=== PATIENT | male | born 1960 | race Caucasian/White ===

== ENCOUNTER 2018-05-18 08:43 | Emergency (ER) | payer BC ==
[2018-05-18] MEDS ORDERED: SODIUM CHLORIDE 0.9% 1,000 ML IV STA (09:08)
--- NOTE | 2018-05-18 09:25 | ED ---
Abdominal Pain HPI - General Chief Complaint: Abdominal Pain Stated Complaint: poss kidney stones Time Seen by Provider: 05/18/18 08:58 Source: patient, RN notes reviewed Mode of arrival: ambulatory Limitations: no limitations - History of Present Illness Initial Comments: 58-year-old male presents emergency Department chief complaint of lower abdominal pain. Patient states this has progressed to the last couple months. Patient states he seen his primary care physician and urologist. Patient states it initially started with with left groin pain which proceeded to translate to testicular pain radiating into his abdomen. Patient has an ultrasound with urology with no acute findings. Patient had cystoscopy yesterday in the office and they stated there is no acute findings. Patient was given a prescription for CT of his abdomen and pelvis with and without contrast. Patient states that he did have extreme discomfort with urination after the procedure this is improving. Patient states he also saw some dark maroon to reddish small clots o r stones he believes. Patient denies any fever, chills, flank pain. Patient offers no complaints of current nausea, vomiting, diarrhea constipation. - Related Data Home Medications Medication Instructions Recorded Confirmed Atorvastatin Calcium [Lipitor] 20 mg PO HS 05/18/18 05/18/18 Cephalexin [Keflex] 500 mg PO TID 05/18/18 05/18/18 Escitalopram [Lexapro] 30 mg PO DAILY 05/18/18 05/18/18 Losartan Potassium 100 mg PO DAILY 05/18/18 05/18/18 Montelukast Sodium [Singulair] 10 mg PO HS 05/18/18 05/18/18 Multivit-Min/FA/Lycopen/Lutein 1 tab PO DAILY 05/18/18 05/18/18 [Centrum Silver Men Tablet] Primidone [Mysoline] 50 mg PO DIRECTED 05/18/18 05/18/18 Tamsulosin [Flomax] 0.4 mg PO DAILY 05/18/18 05/18/18 buPROPion XL [Wellbutrin Xl] 300 mg PO DAILY 05/18/18 05/18/18 Allergies Allergy/AdvReac Type Severity Reaction Status Date / Time aspirin Allergy Anaphylaxis Verified 05/18/18 09:48 ibuprofen [From Motrin] Allergy Anaphylaxis Verified 05/18/18 09:48 codeine AdvReac "dries Verified 05/18/18 09:48 system out" Review of Systems ROS Statement: Those systems with pertinent positive or pertinent negative responses have been documented in the HPI. ROS Other: All systems not noted in ROS Statement are negative. Past Medical History Past Medical History: Asthma, Hyperlipidemia, Hypertension History of Any Multi-Drug Resistant Organisms: None Reported Past Surgical History: No Surgical Hx Reported Past Psychological History: Anxiety, Depression Smoking Status: Never smoker Past Alcohol Use History: Rare Past Drug Use History: None Reported General Exam Limitations: no limitations General appearance: alert, in no apparent distress Head exam: Present: atraumatic, normocephalic, normal inspection Neck exam: Present: normal inspection. Absent: tenderness, meningismus, lymphadenopathy Respiratory exam: Present: normal lung sounds bilaterally. Absent: respiratory distress, wheezes, rales, rhonchi, stridor Cardiovascular Exam: Present: regular rate, normal rhythm, normal heart sounds. Absent: systolic murmur, diastolic murmur, rubs, gallop, clicks GI/Abdominal exam: Present: soft, tenderness (Mild suprapubic), normal bowel sounds. Absent: distended, guarding, rebound, rigid Back exam: Absent: CVA tenderness (R), CVA tenderness (L) Neurological exam: Present: alert, oriented X3, CN II-XII intact Skin exam: Present: warm, dry, intact, normal color. Absent: rash Course Vital Signs 05/18/18 08:45 Temperature 98.2 F Pulse Rate 69 Respiratory 16 Rate Blood Pressure 133/74 O2 Sat by Pulse 98 Oximetry Medical Decision Making - Medical Decision Making 58-year-old male presented for abdominal pain. Patient had recent evaluation by urology with no acute findings recommended CT of abdomen and pelvis which was ordered emergency department. Patient did have lab work. There is some mild thickening of the bladder wall on CT along with fullness of the left renal pelvis. Otherwise no acute findings. Lab work is unremarkable. Patient will be referred back to urology and PCP at this time. - Lab Data Result diagrams: 05/18/18 09:06 05/18/18 09:06 Lab Results 05/18/18 05/18/18 05/18/18 Range/Units 09:06 09:06 09:06 WBC 6.4 (3.8-10.6) k/uL RBC 5.04 (4.30-5.90) m/uL Hgb 14.9 (13.0-17.5) gm/dL Hct 44.9 (39.0-53.0) % MCV 89.2 (80.0-100.0) fL MCH 29.5 (25.0-35.0) pg MCHC 33.1 (31.0-37.0) g/dL RDW 13.4 (11.5-15.5) % Plt Count 215 (150-450) k/uL Neutrophils % 61 % Lymphocytes % 21 % Monocytes % 12 % Eosinophils % 3 % Basophils % 1 % Neutrophils # 3.9 (1.3-7.7) k/uL Lymphocytes # 1.4 (1.0-4.8) k/uL Monocytes # 0.8 (0-1.0) k/uL Eosinophils # 0.2 (0-0.7) k/uL Basophils # 0.0 (0-0.2) k/uL PT 9.9 (9.0-12.0) sec INR 0.9 (<1.2) APTT 25.0 (22.0-30.0) sec Sodium 139 (137-145) mmol/L Potassium 4.2 (3.5-5.1) mmol/L Chloride 106 (98-107) mmol/L Carbon Dioxide 23 (22-30) mmol/L Anion Gap 10 mmol/L BUN 26 H (9-20) mg/dL Creatinine 1.30 H (0.66-1.25) mg/dL Est GFR (CKD-EPI)AfAm 69 (>60 ml/min/1.73 sqM) Est GFR (CKD-EPI)NonAf 60 (>60 ml/min/1.73 sqM) Glucose 104 H (74-99) mg/dL Calcium 8.8 (8.4-10.2) mg/dL Total Bilirubin 0.9 (0.2-1.3) mg/dL AST 35 (17-59) U/L ALT 46 (21-72) U/L Alkaline Phosphatase 69 (38-126) U/L Total Protein 7.0 (6.3-8.2) g/dL Albumin 4.1 (3.5-5.0) g/dL Amylase 80 (30-110) U/L Lipase 86 (23-300) U/L Urine Color Urine Appearance (Clear) Urine pH (5.0-8.0) Ur Specific [place] (1.001-1.035) Urine Protein (Negative) Urine Glucose (UA) (Negative) Urine Ketones (Negative) Urine Blood (Negative) Urine Nitrite (Negative) Urine Bilirubin (Negative) Urine Urobilinogen (<2.0) mg/dL Ur Leukocyte Esterase (Negative) Urine RBC (0-5) /hpf Urine WBC (0-5) /hpf Urine Mucus (None) /hpf 05/18/18 Range/Units 09:06 WBC (3.8-10.6) k/uL RBC (4.30-5.90) m/uL Hgb (13.0-17.5) gm/dL Hct (39.0-53.0) % MCV (80.0-100.0) fL MCH (25.0-35.0) pg MCHC (31.0-37.0) g/dL RDW (11.5-15.5) % Plt Count (150-450) k/uL Neutrophils % % Lymphocytes % % Monocytes % % Eosinophils % % Basophils % % Neutrophils # (1.3-7.7) k/uL Lymphocytes # (1.0-4.8) k/uL Monocytes # (0-1.0) k/uL Eosinophils # (0-0.7) k/uL Basophils # (0-0.2) k/uL PT (9.0-12.0) sec INR (<1.2) APTT (22.0-30.0) sec Sodium (137-145) mmol/L Potassium (3.5-5.1) mmol/L Chloride (98-107) mmol/L Carbon Dioxide (22-30) mmol/L Anion Gap mmol/L BUN (9-20) mg/dL Creatinine (0.66-1.25) mg/dL Est GFR (CKD-EPI)AfAm (>60 ml/min/1.73 sqM) Est GFR (CKD-EPI)NonAf (>60 ml/min/1.73 sqM) Glucose (74-99) mg/dL Calcium (8.4-10.2) mg/dL Total Bilirubin (0.2-1.3) mg/dL AST (17-59) U/L ALT (21-72) U/L Alkaline Phosphatase (38-126) U/L Total Protein (6.3-8.2) g/dL Albumin (3.5-5.0) g/dL Amylase (30-110) U/L Lipase (23-300) U/L Urine Color Yellow Urine Appearance Clear (Clear) Urine pH 5.0 (5.0-8.0) Ur Specific [place] 1.024 (1.001-1.035) Urine Protein Trace H (Negative) Urine Glucose (UA) Negative (Negative) Urine Ketones Negative (Negative) Urine Blood Moderate H (Negative) Urine Nitrite Negative (Negative) Urine Bilirubin Negative (Negative) Urine Urobilinogen <2.0 (<2.0) mg/dL Ur Leukocyte Esterase Negative (Negative) Urine RBC 32 H (0-5) /hpf Urine WBC 1 (0-5) /hpf Urine Mucus Rare H (None) /hpf Disposition Clinical Impression: Abdominal pain Disposition: HOME SELF-CARE Condition: Stable Instructions (If sedation given, give patient instructions): Abdominal Pain (ED) Additional Instructions: Please return to the Emergency Department if symptoms worsen or any other concerns. Is patient prescribed a controlled substance at d/c from ED?: No Referrals: Keyana Bishop DO [Primary Care Provider] - 1-2 days Time of Disposition: 11:14
[2018-05-18 10:16] LABS: Basophils % (A) 1 %; Eosinophils # (A) 0.2 k/uL (0-0.7); Eosinophils % (A) 3 %; HCT 44.9 % (39.0-53.0); HGB 14.9 gm/dL (13.0-17.5); Lymphocytes # (A) 1.4 k/uL (1.0-4.8); Lymphocytes % (A) 21 %; MCH 29.5 pg (25.0-35.0); MCHC 33.1 g/dL (31.0-37.0); MCV 89.2 fL (80.0-100.0); Mean Platelet Volume 7.5; Monocytes # (A) 0.8 k/uL (0-1.0); Monocytes % (A) 12 %; Neutrophils # (A) 3.9 k/uL (1.3-7.7); Neutrophils % (A) 61 %; Platelet Count 215 k/uL (150-450); RBC 5.04 m/uL (4.30-5.90); RDW 13.4 % (11.5-15.5); WBC 6.4 k/uL (3.8-10.6)
--- NOTE | 2018-05-18 10:20 | CT ---
EXAMINATION TYPE: CT abdomen pelvis wo/w con DATE OF EXAM: 05/18/2018 COMPARISON: None HISTORY: testicular pain since scope yesterday CT DLP: 3067.7 mGycm Automated exposure control for dose reduction was used. TECHNIQUE: Helical acquisition of images was performed from the lung bases through the pelvis. CONTRAST: Performed without Oral Contrast and without and with IV Contrast, patient injected with 100 mL of [place]so [place] 300. FINDINGS: LUNG BASES: Subcentimeter benign granulomas is noted in the right middle lobe. Subpleural fat disposi tion is present. LIVER/GB: No cholelithiasis. Unenhanced morphology of the liver is unremarkable. After contrast no ab normal enhancement is seen. PANCREAS: Slight haziness of the pancreatic parenchyma is noted that may relate to patient motion. No ductal dilatation. SPLEEN: No significant abnormality is seen. ADRENALS: No significant abnormality is seen. KIDNEYS: No hydronephrosis. There is mild left-sided pelvic fullness without mp hydronephrosis or obstructing ureteral calculus. Urinary bladder is decompressed. FREE AIR: No free air is visualized. ADENOPATHY: No greater than 1 cm short axis lymph nodes are noted within the abdomen or pelvis. REPRODUCTIVE ORGANS: Prostate gland is heterogenous containing central zone calcifications. URINARY BLADDER: No significant abnormality is seen. OSSEOUS STRUCTURES: No significant abnormality is seen. BOWEL: Few scattered colonic diverticula are seen without pericolonic fat stranding. IMPRESSION: MINIMAL FULLNESS OF THE LEFT RENAL PELVIS LIKELY RELATES TO PHASE OF EXCRETION IS NO MP HYDRONEPHR OSIS IS SEEN. INCOMPLETE DISTENTION OF THE URINARY BLADDER IS NOTED WITH CIRCUMFERENTIAL URINARY BLAD DAVID WALL THICKENING. CORRELATE WITH URINALYSIS.
[2018-05-18 10:24] LABS: INR 0.9 (<1.2); Prothrombin Time 9.9 sec (9.0-12.0)
[2018-05-18 10:36] LABS: Albumin 4.1 g/dL (3.5-5.0); Calcium 8.8 mg/dL (8.4-10.2); Potassium 4.2 mmol/L (3.5-5.1); Total Bilirubin 0.9 mg/dL (0.2-1.3)
[2018-05-18 10:38] LABS: Appearance,Urine Clear (Clear); Bilirubin,Urine Negative (Negative); Blood,Urine Moderate (Negative); Color,Urine Yellow; Glucose,Urine (UA) Negative (Negative); Ketones,Urine Negative (Negative); Leukocyte Esterase,Urine Negative (Negative); Mucus,Urine Rare /hpf; Nitrite,Urine Negative (Negative); Protein,Urine Trace (Negative); RBC,Urine 32 /hpf (0-5); Specific Gravity,Urine 1.024 (1.001-1.035); Urobilinogen,Urine <2.0 mg/dL (<2.0); WBC,Urine 1 /hpf (0-5)
[2018-05-18 11:39] VITALS: BP 144/83; PULSE 83; RESP 18; TEMP 98
== END 2018-05-18 11:30 | disposition home or self-care (01) ==
LOC: EC 08:43
DX: R10.32 Left lower quadrant pain (principal); N32.89 Other specified disorders of bladder; I10 Essential (primary) hypertension; E78.5 Hyperlipidemia, unspecified; F41.9 Anxiety disorder, unspecified; F32.9 Major depressive disorder, single episode, unspecified; Z79.899 Other long term (current) drug therapy; Z88.5 Allergy status to narcotic agent; Z88.6 Allergy status to analgesic agent
CPT/HCPCS: 36415; 80053; 82150; 83690; 85025; 85610; 85730; 81001; 87086; 74178; 99284; 96360; Q9967

== ENCOUNTER 2020-01-03 12:06 | Inpatient (IN) | payer BC ==
[2020-01-03] MEDS ORDERED: diphenhydrAMINE 50 MG/ML 1 ML VIAL IVP STA (13:13)
[2020-01-03] MEDS ORDERED: METOCLOPRAMIDE 5 MG/ML 2 ML VIAL IVP STA (13:13)
[2020-01-03] MEDS ORDERED: MAGNESIUM SULFATE-D5W PMX 1 GM in DEXTROSE/WATER 1 100ML.BAG IVPB ONE (13:14)
--- NOTE | 2020-01-03 13:34 | ED ---
Fever HPI - General Chief Complaint: Fever Stated Complaint: Fever/SOB/Headache Time Seen by Provider: 01/03/20 12:10 Source: patient Mode of arrival: ambulatory Limitations: no limitations - History of Present Illness Initial Comments: 59-year-old male who presents to the emergency department with reported fever, shortness of breath and chest tightness. Patient reports that symptoms started on Monday. His is diagnosed with Covid. He states that he has had a rapid swab performed which were negative however his symptoms persist. He admits to a history of asthma. Denies previous hospitalizations for asthma. Does have rescue inhalers at home. Does admit to nausea with a poor appetite. No vomiting. No abdominal pain. No changes in his bladder habits. Does admit to some diarrhea. Does admit to headache and fever. Took some Tylenol without improvement in his symptoms. No vision changes. No neck stiffness. No head trauma. No other alleviating or modifying factors - Related Data Home Medications Medication Instructions Recorded Confirmed Atorvastatin Calcium [Lipitor] 20 mg PO HS 05/18/18 01/03/20 Escitalopram [Lexapro] 30 mg PO DAILY 05/18/18 01/03/20 Losartan Potassium 100 mg PO DAILY 05/18/18 01/03/20 Montelukast Sodium [Singulair] 10 mg PO HS 05/18/18 01/03/20 Multivit-Min/FA/Lycopen/Lutein 1 tab PO DAILY 05/18/18 01/03/20 [Centrum Silver Men Tablet] buPROPion XL [Wellbutrin XL] 300 mg PO DAILY 05/18/18 01/03/20 Gabapentin [Neurontin] 300 mg PO TID 01/03/20 01/03/20 Oxybutynin Chloride [Ditropan XL] 10 mg PO DAILY 01/03/20 01/03/20 buPROPion XL [Wellbutrin XL] 150 mg PO DAILY 01/03/20 01/03/20 Previous Rx's Medication Instructions Recorded Albuterol Inhaler [Ventolin Hfa 2 puff INHALATION RT-TID #1 inh 01/10/20 Inhaler] Ascorbic Acid [Vitamin C] 500 mg PO DAILY #21 tab 01/10/20 Cefuroxime Axetil [Ceftin] 500 mg PO BID 5 Days #10 tab 01/10/20 Cholecalciferol [Vitamin D3 (25 1,000 unit PO DAILY #30 tab 01/10/20 Mcg = 1000 Iu)] Famotidine [Pepcid] 20 mg PO DAILY #30 tab 01/10/20 Zinc Sulfate [Orazinc] 220 mg PO DAILY #30 cap 01/10/20 dexAMETHasone [Hexadrol] 6 mg PO DAILY 4 Days #6 tab 01/10/20 Allergies Allergy/AdvReac Type Severity Reaction Status Date / Time aspirin Allergy Anaphylaxis Verified 01/03/20 13:02 ibuprofen [From Motrin] Allergy Anaphylaxis Verified 01/03/20 13:02 codeine AdvReac "dries Verified 01/03/20 13:02 system out" Review of Systems ROS Statement: Those systems with pertinent positive or pertinent negative responses have been documented in the HPI. ROS Other: All systems not noted in ROS Statement are negative. Past Medical History Past Medical History: Asthma, Hyperlipidemia, Hypertension History of Any Multi-Drug Resistant Organisms: None Reported Past Surgical History: No Surgical Hx Reported Past Psychological History: Anxiety, Depression Smoking Status: Never smoker Past Alcohol Use History: Rare Past Drug Use History: None Reported General Exam Limitations: no limitations General appearance: alert, in no apparent distress Head exam: Present: atraumatic, normocephalic, normal inspection Eye exam: Present: normal appearance, PERRL, EOMI. Absent: scleral icterus, conjunctival injection, periorbital swelling ENT exam: Present: normal exam, mucous membranes moist Neck exam: Present: normal inspection. Absent: tenderness, meningismus, lymphadenopathy Respiratory exam: Present: decreased breath sounds, other (tachypnia). Absent: respiratory distress, wheezes, rales, rhonchi, stridor Cardiovascular Exam: Present: regular rate, normal rhythm, normal heart sounds. Absent: systolic murmur, diastolic murmur, rubs, gallop, clicks GI/Abdominal exam: Present: soft, normal bowel sounds. Absent: distended, tenderness, guarding, rebound, rigid Extremities exam: Present: normal inspection, full ROM, normal capillary refill. Absent: tenderness, pedal edema, joint swelling, calf tenderness Back exam: Present: normal inspection Neurological exam: Present: alert, oriented X3, CN II-XII intact Psychiatric exam: Present: normal affect, normal mood Skin exam: Present: warm, dry, intact, normal color, diaphoretic. Absent: rash Course Vital Signs 01/03/20 01/03/20 01/03/20 12:08 12:39 14:13 Temperature 100.7 F H Pulse Rate 78 65 Respiratory 28 H 16 18 Rate Blood Pressure 135/75 138/83 O2 Sat by Pulse 98 95 Oximetry 01/03/20 01/03/20 01/03/20 15:19 16:00 16:30 Temperature Pulse Rate 65 67 71 Respiratory 18 18 18 Rate Blood Pressure 146/87 132/82 146/83 O2 Sat by Pulse 95 93 L 94 L Oximetry Medical Decision Making - Medical Decision Making Upon arrival the patient was placed into room 2. A thorough history and physical exam was performed. Peripheral IV is established. The patient is given 10 mg of Reglan and 25 mg of Benadryl. 1 g of magnesium was administered. Laboratories results were conducted and a chest x-ray was performed. Laboratory studies demonstrate a creatinine of 1.6 which is around the patient's baseline. C-reactive protein of 65. Influenza A and B are negative. Chest x- ray does demonstrate bilateral pneumonia. Patient is swabbed again for appropriate. Patient is reevaluated and continues to have pain. Because of this I did recommend CT. CT of the patient's brain demonstrates no acute intracranial abnormality. Patient was given 1 g of Tylenol for his fever. Vital signs are obtained and patient now has saturations are 94%. Due to the patient's persistent symptoms I did recommend hospital admission for which the patient did agree to. I discussed the case with Dr. Dodd who accepted admission for the patient. Patient is currently awaiting a bed on the floor - Lab Data Result diagrams: 01/06/20 05:49 01/06/20 05:49 Lab Results 01/03/20 01/03/20 01/03/20 Range/Units 13:29 13:29 13:29 WBC 9.2 (3.8-10.6) k/uL RBC 5.45 (4.30-5.90) m/uL Hgb 15.6 (13.0-17.5) gm/dL Hct 49.8 (39.0-53.0) % MCV 91.3 (80.0-100.0) fL MCH 28.7 (25.0-35.0) pg MCHC 31.4 (31.0-37.0) g/dL RDW 13.3 (11.5-15.5) % Plt Count 208 (150-450) k/uL Neutrophils % 80 % Lymphocytes % 6 % Monocytes % 12 % Eosinophils % 0 % Basophils % 1 % Neutrophils # 7.4 (1.3-7.7) k/uL Lymphocytes # 0.6 L (1.0-4.8) k/uL Monocytes # 1.1 H (0-1.0) k/uL Eosinophils # 0.0 (0-0.7) k/uL Basophils # 0.1 (0-0.2) k/uL ESR (0-15) mm/hr PT 9.6 (9.0-12.0) sec INR 0.9 (<1.2) APTT 25.8 (22.0-30.0) sec D-Dimer 0.29 (<0.60) mg/L FEU Sodium 133 L (137-145) mmol/L Potassium 4.7 (3.5-5.1) mmol/L Chloride 100 (98-107) mmol/L Carbon Dioxide 24 (22-30) mmol/L Anion Gap 9 mmol/L BUN 25 H (9-20) mg/dL Creatinine 1.61 H (0.66-1.25) mg/dL Est GFR (CKD-EPI)AfAm 53 (>60 ml/min/1.73 sqM) Est GFR (CKD-EPI)NonAf 46 (>60 ml/min/1.73 sqM) BUN/Creatinine Ratio (12.00-20.00) Ratio Glucose 111 H (74-99) mg/dL Plasma Lactic Acid Abhilash (0.7-2.0) mmol/L Calcium 8.4 (8.4-10.2) mg/dL Magnesium 1.8 (1.6-2.3) mg/dL Ferritin 290.4 (22.0-322.0) ng/mL Total Bilirubin 0.9 (0.2-1.3) mg/dL AST 30 (17-59) U/L ALT 27 (4-49) U/L Alkaline Phosphatase 58 (38-126) U/L Lactate Dehydrogenase 612 (313-618) U/L C-Reactive Protein 65.0 H (<10.0) mg/L Total Protein 6.4 (6.3-8.2) g/dL Albumin 3.8 (3.5-5.0) g/dL Procalcitonin (0.02-0.09) ng/mL Urine Color Urine Appearance (Clear) Urine pH (5.0-8.0) Ur Specific [place] (1.001-1.035) Urine Protein (Negative) Urine Glucose (UA) (Negative) Urine Ketones (Negative) Urine Blood (Negative) Urine Nitrite (Negative) Urine Bilirubin (Negative) Urine Urobilinogen (<2.0) mg/dL Ur Leukocyte Esterase (Negative) Urine RBC (0-5) /hpf Urine WBC (0-5) /hpf Ur Squamous Epith Cells (0-4) /hpf Granular Casts (0) /lpf Urine Mucus (None) /hpf Coronavirus (PCR) (Not Detected) Influenza Type A RNA (Not Detectd) Influenza Type B (PCR) (Not Detectd) 01/03/20 01/03/20 01/03/20 Range/Units 13:29 13:29 13:29 WBC (3.8-10.6) k/uL RBC (4.30-5.90) m/uL Hgb (13.0-17.5) gm/dL Hct (39.0-53.0) % MCV (80.0-100.0) fL MCH (25.0-35.0) pg MCHC (31.0-37.0) g/dL RDW (11.5-15.5) % Plt Count (150-450) k/uL Neutrophils % % Lymphocytes % % Monocytes % % Eosinophils % % Basophils % % Neutrophils # (1.3-7.7) k/uL Lymphocytes # (1.0-4.8) k/uL Monocytes # (0-1.0) k/uL Eosinophils # (0-0.7) k/uL Basophils # (0-0.2) k/uL ESR 12 (0-15) mm/hr PT (9.0-12.0) sec INR (<1.2) APTT (22.0-30.0) sec D-Dimer (<0.60) mg/L FEU Sodium (137-145) mmol/L Potassium (3.5-5.1) mmol/L Chloride (98-107) mmol/L Carbon Dioxide (22-30) mmol/L Anion Gap mmol/L BUN (9-20) mg/dL Creatinine (0.66-1.25) mg/dL Est GFR (CKD-EPI)AfAm (>60 ml/min/1.73 sqM) Est GFR (CKD-EPI)NonAf (>60 ml/min/1.73 sqM) BUN/Creatinine Ratio (12.00-20.00) Ratio Glucose (74-99) mg/dL Plasma Lactic Acid Abhilash 1.0 (0.7-2.0) mmol/L Calcium (8.4-10.2) mg/dL Magnesium (1.6-2.3) mg/dL Ferritin (22.0-322.0) ng/mL Total Bilirubin (0.2-1.3) mg/dL AST (17-59) U/L ALT (4-49) U/L Alkaline Phosphatase (38-126) U/L Lactate Dehydrogenase (313-618) U/L C-Reactive Protein (<10.0) mg/L Total Protein (6.3-8.2) g/dL Albumin (3.5-5.0) g/dL Procalcitonin 0.16 H (0.02-0.09) ng/mL Urine Color Urine Appearance (Clear) Urine pH (5.0-8.0) Ur Specific [place] (1.001-1.035) Urine Protein (Negative) Urine Glucose (UA) (Negative) Urine Ketones (Negative) Urine Blood (Negative) Urine Nitrite (Negative) Urine Bilirubin (Negative) Urine Urobilinogen (<2.0) mg/dL Ur Leukocyte Esterase (Negative) Urine RBC (0-5) /hpf Urine WBC (0-5) /hpf Ur Squamous Epith Cells (0-4) /hpf Granular Casts (0) /lpf Urine Mucus (None) /hpf Coronavirus (PCR) (Not Detected) Influenza Type A RNA (Not Detectd) Influenza Type B (PCR) (Not Detectd) 01/03/20 01/03/20 01/04/20 Range/Units 14:25 14:25 06:10 WBC (3.8-10.6) k/uL RBC (4.30-5.90) m/uL Hgb (13.0-17.5) gm/dL Hct (39.0-53.0) % MCV (80.0-100.0) fL MCH (25.0-35.0) pg MCHC (31.0-37.0) g/dL RDW (11.5-15.5) % Plt Count (150-450) k/uL Neutrophils % % Lymphocytes % % Monocytes % % Eosinophils % % Basophils % % Neutrophils # (1.3-7.7) k/uL Lymphocytes # (1.0-4.8) k/uL Monocytes # (0-1.0) k/uL Eosinophils # (0-0.7) k/uL Basophils # (0-0.2) k/uL ESR (0-15) mm/hr PT (9.0-12.0) sec INR (<1.2) APTT (22.0-30.0) sec D-Dimer (<0.60) mg/L FEU Sodium (137-145) mmol/L Potassium (3.5-5.1) mmol/L Chloride (98-107) mmol/L Carbon Dioxide (22-30) mmol/L Anion Gap mmol/L BUN (9-20) mg/dL Creatinine (0.66-1.25) mg/dL Est GFR (CKD-EPI)AfAm (>60 ml/min/1.73 sqM) Est GFR (CKD-EPI)NonAf (>60 ml/min/1.73 sqM) BUN/Creatinine Ratio (12.00-20.00) Ratio Glucose (74-99) mg/dL Plasma Lactic Acid Abhilash (0.7-2.0) mmol/L Calcium (8.4-10.2) mg/dL Magnesium (1.6-2.3) mg/dL Ferritin (22.0-322.0) ng/mL Total Bilirubin (0.2-1.3) mg/dL AST (17-59) U/L ALT (4-49) U/L Alkaline Phosphatase (38-126) U/L Lactate Dehydrogenase (313-618) U/L C-Reactive Protein (<10.0) mg/L Total Protein (6.3-8.2) g/dL Albumin (3.5-5.0) g/dL Procalcitonin (0.02-0.09) ng/mL Urine Color Yellow Urine Appearance Clear (Clear) Urine pH 5.0 (5.0-8.0) Ur Specific [place] 1.023 (1.001-1.035) Urine Protein 1+ H (Negative) Urine Glucose (UA) Negative (Negative) Urine Ketones Negative (Negative) Urine Blood Negative (Negative) Urine Nitrite Negative (Negative) Urine Bilirubin Negative (Negative) Urine Urobilinogen <2.0 (<2.0) mg/dL Ur Leukocyte Esterase Negative (Negative) Urine RBC 1 (0-5) /hpf Urine WBC 1 (0-5) /hpf Ur Squamous Epith Cells <1 (0-4) /hpf Granular Casts 1 (0) /lpf Urine Mucus Occasional H (None) /hpf Coronavirus (PCR) Detected H (Not Detected) Influenza Type A RNA Not Detected (Not Detectd) Influenza Type B (PCR) Not Detected (Not Detectd) 01/04/20 01/04/20 Range/Units 06:28 06:28 WBC 5.5 (3.8-10.6) k/uL RBC 5.14 (4.30-5.90) m/uL Hgb 14.8 (13.0-17.5) gm/dL Hct 47.5 (39.0-53.0) % MCV 92.5 (80.0-100.0) fL MCH 28.9 (25.0-35.0) pg MCHC 31.2 (31.0-37.0) g/dL RDW 13.3 (11.5-15.5) % Plt Count 170 (150-450) k/uL Neutrophils % 84 % Lymphocytes % 7 % Monocytes % 8 % Eosinophils % 0 % Basophils % 0 % Neutrophils # 4.6 (1.3-7.7) k/uL Lymphocytes # 0.4 L (1.0-4.8) k/uL Monocytes # 0.4 (0-1.0) k/uL Eosinophils # 0.0 (0-0.7) k/uL Basophils # 0.0 (0-0.2) k/uL ESR (0-15) mm/hr PT (9.0-12.0) sec INR (<1.2) APTT (22.0-30.0) sec D-Dimer (<0.60) mg/L FEU Sodium 135 (137-145) mmol/L Potassium 5.1 (3.5-5.1) mmol/L Chloride 100 (98-107) mmol/L Carbon Dioxide 27.7 (22-30) mmol/L Anion Gap 7.30 mmol/L BUN 22.0 (9-20) mg/dL Creatinine 1.4 (0.66-1.25) mg/dL Est GFR (CKD-EPI)AfAm 62.8 (>60 ml/min/1.73 sqM) Est GFR (CKD-EPI)NonAf 54.2 L (>60 ml/min/1.73 sqM) BUN/Creatinine Ratio 15.71 (12.00-20.00) Ratio Glucose 133 H (74-99) mg/dL Plasma Lactic Acid Abhilash (0.7-2.0) mmol/L Calcium 8.0 L (8.4-10.2) mg/dL Magnesium (1.6-2.3) mg/dL Ferritin (22.0-322.0) ng/mL Total Bilirubin (0.2-1.3) mg/dL AST (17-59) U/L ALT (4-49) U/L Alkaline Phosphatase (38-126) U/L Lactate Dehydrogenase (313-618) U/L C-Reactive Protein (<10.0) mg/L Total Protein (6.3-8.2) g/dL Albumin (3.5-5.0) g/dL Procalcitonin (0.02-0.09) ng/mL Urine Color Urine Appearance (Clear) Urine pH (5.0-8.0) Ur Specific [place] (1.001-1.035) Urine Protein (Negative) Urine Glucose (UA) (Negative) Urine Ketones (Negative) Urine Blood (Negative) Urine Nitrite (Negative) Urine Bilirubin (Negative) Urine Urobilinogen (<2.0) mg/dL Ur Leukocyte Esterase (Negative) Urine RBC (0-5) /hpf Urine WBC (0-5) /hpf Ur Squamous Epith Cells (0-4) /hpf Granular Casts (0) /lpf Urine Mucus (None) /hpf Coronavirus (PCR) (Not Detected) Influenza Type A RNA (Not Detectd) Influenza Type B (PCR) (Not Detectd) - EKG Data EKG Comments: EKG demonstrates a normal sinus rhythm with a ventricular rate of 68. TN interval 142. QRS 80. QTC 408. No acute ST segment elevations or depressions concerning for ischemic changes Disposition Clinical Impression: Cephalgia, Pneumonia, Suspected COVID-19 virus infection, Fever Disposition: ADMITTED IP TO THIS HOSP Condition: Stable Is patient prescribed a controlled substance at d/c from ED?: No Decision to Admit Reason: Admit from EC Decision Date: 01/03/20 Decision Time: 16:31
[2020-01-03 13:56] LABS: Basophils # (A) 0.1 k/uL (0-0.2); Basophils % (A) 1 %; Eosinophils % (A) 0 %; HCT 49.8 % (39.0-53.0); HGB 15.6 gm/dL (13.0-17.5); Lymphocytes # (A) 0.6 k/uL (1.0-4.8); Lymphocytes % (A) 6 %; MCH 28.7 pg (25.0-35.0); MCHC 31.4 g/dL (31.0-37.0); MCV 91.3 fL (80.0-100.0); Monocytes # (A) 1.1 k/uL (0-1.0); Monocytes % (A) 12 %; Neutrophils # (A) 7.4 k/uL (1.3-7.7); Neutrophils % (A) 80 %; Platelet Count 208 k/uL (150-450); RBC 5.45 m/uL (4.30-5.90); RDW 13.3 % (11.5-15.5); WBC 9.2 k/uL (3.8-10.6)
[2020-01-03 14:00] LABS: Albumin 3.8 g/dL (3.5-5.0); Calcium 8.4 mg/dL (8.4-10.2); Magnesium 1.8 mg/dL (1.6-2.3); Potassium 4.7 mmol/L (3.5-5.1); Total Bilirubin 0.9 mg/dL (0.2-1.3); Total Protein 6.4 g/dL (6.3-8.2)
--- NOTE | 2020-01-03 14:08 | XR ---
EXAMINATION TYPE: XR chest 1V portable DATE OF EXAM: 01/03/2020 COMPARISON: NONE HISTORY: Cough, congestion and headache, suspected Covid pneumonia TECHNIQUE: Single frontal view of the chest is obtained. FINDINGS: Technique is somewhat apical lordotic. There is no focal air space opacity, pleural effusio n, or pneumothorax seen. The cardiac silhouette size is enlarged. Interstitium is mildly increased. Technique somewhat limited by patient body habitus. Some patchy peripheral densities are suspected. The osseous structures are intact. IMPRESSION: Correlate for possible underlying pneumonia. Heart is likely.
[2020-01-03 14:10] LABS: D-Dimer 0.29 mg/L FEU (<0.60); INR 0.9 (<1.2); Partial Thromboplastin Time 25.8 sec (22.0-30.0); Prothrombin Time 9.6 sec (9.0-12.0)
[2020-01-03] MEDS ORDERED: cefTRIAXone IN SWFI 1,000 MG/10 ML SYRINGE IVP STA (15:26)
[2020-01-03] MEDS ORDERED: AZITHROMYCIN 500 MG in SODIUM CHLORIDE 0.9% 250 ML IVPB STA (15:26)
[2020-01-03] MEDS ORDERED: ACETAMINOPHEN TAB 500 MG TAB PO STA (15:40)
--- NOTE | 2020-01-03 15:53 | CT ---
EXAMINATION TYPE: CT brain wo con DATE OF EXAM: 01/03/2020 COMPARISON: None HISTORY: 59-year-old male headache TECHNIQUE: Examination was done in axial plane without intravenous contrast. Coronal and sagittal r econstructions performed. CT DLP: 1058.4 mGycm Automated exposure control for dose reduction was used. FINDINGS: There is no evidence of acute intracranial hemorrhage, acute ischemic changes, mass, mass-effect, or extra-axial fluid collection. There is no effacement of cerebral sulci or basal subarachnoid cister ns. There is no hydrocephalus. There is no midline shift. Hale-white matter distinction is preserv ed. Trace mucosal thickening ethmoid air cells. Mastoid air cells well pneumatized. Orbits and globes fani ear intact. IMPRESSION: No acute intracranial abnormality seen.
[2020-01-03] MEDS ORDERED: NALOXONE 0.4 MG/ML 1 ML VIAL IV PRN (16:31)
[2020-01-03] MEDS ORDERED: MORPHINE SULFATE 4 MG/ML SYRINGE IVP STA (17:25)
[2020-01-03] MEDS: SODIUM CHLORIDE 0.9% 1,000 ML IV SCH (17:54)
--- NOTE | 2020-01-03 18:42 | CT ---
EXAMINATION TYPE: CT chest wo con DATE OF EXAM: 01/03/2020 COMPARISON: 70 radiographic. HISTORY: Shortness of breath CT DLP: 597.3 mGycm. Automated Exposure Control for Dose Reduction was Utilized. TECHNIQUE: CT scan of the thorax is performed without IV contrast. FINDINGS: LUNGS: There is bilateral moderately diffuse patchy groundglass opacities. No significant pleural eff usion or pneumothorax. MEDIASTINUM: Lack of IV contrast is noted to limit evaluation for mediastinal and especially hilar ad enopathy. There are no definitive greater than 1 cm hilar or mediastinal lymph nodes. No cardiomega ly or pericardial effusion is seen. OTHER: No additional significant abnormality is seen. IMPRESSION: Bilateral diffuse patchy groundglass opacities, can be seen with Covid-19 pneumonia. Other etiologies not excluded. Recommend clinical correlation.
[2020-01-03] MEDS: ATORVASTATIN 20 MG TAB PO SCH (20:17)
[2020-01-03] MEDS: ENOXAPARIN 40 MG/0.4 ML SYRINGE SQ SCH (20:17)
[2020-01-03] MEDS: dexAMETHasone 2 MG TAB PO SCH (20:17)
[2020-01-03] MEDS: ZINC SULFATE 220 MG CAP PO SCH (20:17)
[2020-01-03] MEDS: MONTELUKAST 10 MG TAB PO SCH (20:18)
[2020-01-03] MEDS: GABAPENTIN 300 MG CAP PO SCH (20:18)
[2020-01-03] MEDS: SYMBICORT 160-4.5 MCG INHALER INHALATION SCH (20:52)
--- NOTE | 2020-01-03 22:32 | HP ---
HISTORY AND PHYSICAL DATE OF SERVICE: 01/03/2020 CHIEF COMPLAINTS: Fever, headache, cough, shortness of breath and chest tightness. HISTORY OF PRESENT ILLNESS: This 59-year-old gentleman with a past medical history of asthma, hypertension, hyperlipidemia, being followed by Dr. Bishop in the outpatient setting, apparently was having symptoms of fever, shortness of breath and tightness of the chest which were worsening over the last one week. The patient also had a severe headache, bitemporal. Apparently the patient's has tested positive for COVID. She works in the [employer] system. The patient's rapid COVID test was negative, but chest x-ray showed bilateral interstitial pneumonia suggestive of COVID pneumonia. The patient is admitted for further evaluation and treatment. There is no history of any rigors. No history of any loss of conscious or seizures at this time. PAST MEDICAL HISTORY: History of asthma, hypertension, hyperlipidemia, history of anxiety, depression. HOME MEDICATIONS: Medrol Dosepak, Wellbutrin XL, Ditropan XL, multivitamin, Singulair, losartan, Neurontin, Lexapro, Zithromax, Lipitor. ALLERGIES: ASPIRIN, MOTRIN, CODEINE. FAMILY HISTORY: No history of heart disease or strokes in the family. SOCIAL HISTORY: No history of smoking. No history of alcohol intake. REVIEW OF SYSTEMS: ENT: As mentioned earlier. CARDIOVASCULAR SYSTEM: No angina, palpitations. RESPIRATORY SYSTEM: As mentioned earlier. GI: No nausea, vomiting. : No dysuria or retention. NERVOUS SYSTEM: No numbness, weakness. ALLERGY/IMMUNOLOGY: No asthma, hayfever. MUSCULOSKELETAL: As mentioned earlier. HEMATOLOGY/ONCOLOGY: No history of anemia. ENDOCRINE: Hypothyroidism. CONSTITUTIONAL: As mentioned earlier. DERMATOLOGY: Negative. RHEUMATOLOGY: Negative. PSYCHIATRY: As mentioned earlier. PHYSICAL EXAMINATION: Patient is alert and oriented x3. Pulse 69, blood pressure 153/98, respirations 16, temperature 99.5, pulse ox 94% on 2 L. HEENT: Conjunctivae normal. Oral mucosa moist. NECK: No jugular venous distention. No carotid bruit. No lymph node enlargement. CARDIOVASCULAR SYSTEM: S1, S2 muffled. RESPIRATORY SYSTEM: Breath sounds diminished at the bases. A few scattered rhonchi. ABDOMEN: Soft, non-tender. No mass palpable. LEGS: No edema. No swelling. NERVOUS SYSTEM: No focal deficit. LABS: CBC within normal limits. Sodium 133, creatinine is 1.61. C-reactive protein is 65. Flu is negative. Chest x-ray and CT scan reviewed. ASSESSMENT: 1. Acute COVID-19 infection with possibly bilateral pneumonia, viral interstitial pneumonia. 2. Hyponatremia. 3. Increased creatinine with possibly acute renal failure, acute tubular necrosis, multifactorial. 4. Increased CRP. 5. History of asthma. 6. Hypertension. 7. Hyperlipidemia. 8. Anxiety, depression. 9. Obesity with body mass index of 38.4. 10.FULL CODE. RECOMMENDATIONS AND DISCUSSION: In this 59-year-old gentleman who presented with multiple complex medical issues, we will monitor the patient closely, continue the current medications, continue symptomatic treatment. I recommend Lovenox, dexamethasone, zinc as well as consultation to Dr. Choi for consideration of remdesivir, from which the patient might benefit. COVID-19 PCR testing also repeated. Prognosis guarded because of multiple complex medical issues. Further recommendations to follow. MMODL / IJN: [id number] / MELODY
[2020-01-03] MEDS: HYDROcodone/APAP 5-325MG 1 EACH TAB PO PRN (22:36)
[2020-01-03 22:55] LABS: Ferritin 290.4 ng/mL (22.0-322.0)
[2020-01-04 06:21] LABS: Appearance,Urine Clear (Clear); Bilirubin,Urine Negative (Negative); Blood,Urine Negative (Negative); Color,Urine Yellow; Glucose,Urine (UA) Negative (Negative); Granular Casts,Urine 1 /lpf (0); Ketones,Urine Negative (Negative); Leukocyte Esterase,Urine Negative (Negative); Mucus,Urine Occasional /hpf; Nitrite,Urine Negative (Negative); Protein,Urine 1+ (Negative); RBC,Urine 1 /hpf (0-5); Specific Gravity,Urine 1.023 (1.001-1.035); Squamous Epithelial Cell,Urine <1 /hpf (0-4); Urobilinogen,Urine <2.0 mg/dL (<2.0); WBC,Urine 1 /hpf (0-5)
[2020-01-04 06:53] LABS: Basophils % (A) 0 %; Eosinophils % (A) 0 %; HCT 47.5 % (39.0-53.0); HGB 14.8 gm/dL (13.0-17.5); Lymphocytes # (A) 0.4 k/uL (1.0-4.8); Lymphocytes % (A) 7 %; MCH 28.9 pg (25.0-35.0); MCHC 31.2 g/dL (31.0-37.0); MCV 92.5 fL (80.0-100.0); Mean Platelet Volume 7.6; Monocytes # (A) 0.4 k/uL (0-1.0); Monocytes % (A) 8 %; Neutrophils # (A) 4.6 k/uL (1.3-7.7); Neutrophils % (A) 84 %; Platelet Count 170 k/uL (150-450); RBC 5.14 m/uL (4.30-5.90); RDW 13.3 % (11.5-15.5); WBC 5.5 k/uL (3.8-10.6)
[2020-01-04] MEDS: MULTIVITAMINS, THERA 1 EACH TAB PO SCH (08:17)
[2020-01-04] MEDS: ENOXAPARIN 40 MG/0.4 ML SYRINGE SQ SCH ×2 (08:17→21:32)
[2020-01-04] MEDS: HYDROcodone/APAP 5-325MG 1 EACH TAB PO PRN (08:17)
[2020-01-04] MEDS: GABAPENTIN 300 MG CAP PO SCH ×3 (08:17→21:32)
[2020-01-04] MEDS: LOSARTAN 50 MG TAB PO SCH (08:17)
[2020-01-04] MEDS: OXYBUTYNIN 10 MG TAB.ER.24 PO SCH (08:18)
[2020-01-04] MEDS: ESCITALOPRAM 10 MG TAB PO SCH (08:18)
[2020-01-04] MEDS: ZINC SULFATE 220 MG CAP PO SCH (08:18)
[2020-01-04] MEDS: buPROPion XL 150 MG TAB.ER.24H PO SCH (08:19)
[2020-01-04] MEDS: dexAMETHasone 2 MG TAB PO SCH (08:19)
[2020-01-04] MEDS: SYMBICORT 160-4.5 MCG INHALER INHALATION SCH ×2 (08:21→20:07)
[2020-01-04] MEDS: ALBUTEROL HFA INHALER INHALATION SCH ×3 (08:21→20:07)
[2020-01-04] MEDS: SODIUM CHLORIDE 0.9% 1,000 ML IV SCH ×2 (08:26→20:00)
[2020-01-04] MEDS ORDERED: AZITHROMYCIN 250 MG TAB PO SCH (09:00)
[2020-01-04] MEDS ORDERED: buPROPion XL 300 MG TAB.ER.24H PO SCH (09:00)
[2020-01-04 09:30] LABS: African American GFR (CKD) 62.8 (60.0-200.0); Anion Gap 7.3 mmol/L (4.00-12.00); BUN/Creat Ratio 15.71 Ratio (12.00-20.00); Carbon Dioxide 27.7 mmol/L (21.6-31.8); Non-African American GFR(CKD) 54.2 (60.0-200.0); Potassium 5.1 mmol/L (3.5-5.5)
--- NOTE | 2020-01-04 14:19 | XR ---
EXAMINATION TYPE: XR chest 1V portable DATE OF EXAM: 01/04/2020 COMPARISON: 01/03/2020 HISTORY: Cough TECHNIQUE: Single view FINDINGS: There is general coarsening interstitial markings. Heart is slightly enlarged. Thoracic aor ta is atheromatous. There are chest leads. There is no pleural effusion. IMPRESSION: Coarse interstitial density consistent with primary fibrosis unchanged compared to yester day. No heart failure.
--- NOTE | 2020-01-04 15:09 | CONS ---
CONSULTATION DATE OF SERVICE: 01/04/2020. REASON FOR CONSULTATION: Possible COVID 19 pneumonitis. HISTORY: This is a 59-year-old gentleman who was brought into the emergency room. He came in with complaints of cough, shortness of breath, chest tightness, and fever. His symptoms began at the beginning of this week. He has been having symptoms for about 4 to 5 days. Recently, his was diagnosed with Covid-19 infection. The patient apparently did have the rapid antigen test done on nasopharyngeal swab and it was apparently reported as being negative. Despite that, his symptoms persist. He does have a history of mild asthma for which he uses montelukast 10 mg at bedtime and occasionally an albuterol inhaler. The patient does admit to in addition to the above, nausea with poor appetite, without vomiting. No abdominal pain. No chest pain or chest discomfort. No changes in bladder or bowel habits. No lightheadedness or dizziness. He does have headache. He does have some mild joint aches and muscle aches. Currently, he is resting comfortably. His x-rays and CT scans are reviewed. Currently his COVID 19 PCR test is pending. HOME MEDICATIONS: Include Lipitor, Lexapro, losartan, Singulair, albuterol inhaler, Centrum Silver vitamins, Wellbutrin, a Z-Hayes, gabapentin, oxybutynin, Wellbutrin, and a Medrol Dosepak. ALLERGIES: Aspirin, ibuprofen, and codeine. MEDICAL HISTORY: Positive for asthma, hyperlipidemia, and hypertension. His asthma is relatively mild according to him. SURGICAL HISTORY: Unremarkable. SOCIAL HISTORY: Negative for tobacco use. Drinks alcohol rarely. No illicit drug use. FAMILY HISTORY: Unremarkable. He states that both mother and father were very healthy. REVIEW OF SYSTEMS: CONSTITUTIONAL: Weakness, mild joint aches and muscle aches. NEUROLOGIC: Headache. HEENT: Negative. CARDIOVASCULAR: Negative. PULMONARY: Cough, chest tightness, shortness of breath, cough without phlegm production. GI: Negative thus far. GI: Nausea, decreased appetite, no vomiting, abdominal pain or diarrhea. : Negative. RHEUMATOLOGIC: Negative. IMMUNOLOGIC: Negative. ENDOCRINOLOGIC: Negative. DERMATOLOGIC: Negative. PHYSICAL EXAMINATION: VITAL SIGNS: Current vital signs include temperature 98.6, heart rate 69, respiratory rate 18, 2 L saturation 97%. Blood pressure 150/85 mean 106. GENERAL: Appears in no acute distress. HEENT: Examination is grossly unremarkable. NECK: Supple, full range of motion. No adenopathy, thyromegaly or neck vein distention. CARDIOVASCULAR: Examination reveals regular rhythm rate. Heart rate 67 beats per minute. S1, S2 normal. LUNGS: A few scattered rhonchi. No wheezes. No crackles. Breath sounds equal bilaterally. ABDOMEN: Soft. Bowel sounds are heard. EXTREMITIES: Intact. No cyanosis, clubbing, or edema. SKIN: Without rash. NEUROLOGIC: Examination is brief but nonfocal. LABS: Reviewed. White count 5.5, hemoglobin 14.8, hematocrit 47.5, platelet count 170,000. PT/INR PTT and D-dimer all normal. Sodium, potassium chloride, CO2 all normal. Anion gap is 7.3, BUN and creatinine were 22 and 1.4. The patient's glucose was 133, calcium 8. The rest of the labs look pretty good. Ferritin 290. C-reactive protein 65. Procalcitonin 0.16. Urine was negative. Influenza studies are pending. COVID 19 PCR test is pending. Microbiology is negative. CHEST X-RAY: Chest x-ray shows some patchy peripheral densities. CT scan shows bilateral diffuse patchy ground-glass opacities consistent with possible COVID [address] negative. MEDICATIONS: Current medications reviewed. He is currently on albuterol inhaler, Lipitor, Symbicort, Wellbutrin, ceftriaxone, Decadron, Lovenox Lexapro, Neurontin, [place], Cozaar, Singulair, multivitamins, Narcan, Ditropan, saline IV, and zinc. ASSESSMENT: 1. Possible COVID 19 pneumonitis, awaiting confirmatory nasopharyngeal PCR test. 2. History of asthma, which is relatively mild, managed with Singulair and occasional albuterol. 3. History of hyperlipidemia. 4. History of hypertension. 5. No prior history of tobacco use. PLAN: Currently, the patient is doing well. His asthma is mild. It is well controlled. We are waiting his nasopharyngeal PCR swab test. I suspect that he does have COVID [address] scan[address] His symptoms are suggestive. His had COVID 19. Additional recommendations and suggestions are forthcoming. If the test does come back positive, the patient should be started on Remdesivir. He will get 200 mg initially IV and then 100 mg a day 2, 3, 4 and 5. The rest of the medications are okay. Additional recommendations and suggestions are forthcoming. In addition, he should receive vitamin C, vitamin D, Pepcid, melatonin, and Decadron. BHAKTI / YONIN: [id number] /
--- NOTE | 2020-01-04 19:00 | PN ---
PROGRESS NOTE DATE OF SERVICE: 01/04/2020. HISTORY: This 62-year-old gentleman is admitted with features of bilateral pneumonia is being closely monitored. The most recent chest x-ray was personally reviewed by me showed bilateral lesions. The patient's influenza was negative. Covid-19 is pending at this time. Dr. Choi is recommending Remdesivir at this time. PAST MEDICAL HISTORY: Reviewed. REVIEW OF SYSTEMS: CARDIOVASCULAR: As mentioned earlier. GI: As mentioned earlier. : As mentioned earlier. CURRENT MEDICATIONS: Reviewed include: 1. [place]. 2. Ventolin. 3. Lipitor. 4. Symbicort. 5. Rocephin. 6. Dexamethasone. 7. Neurontin. 8. Singulair. 9. Narcan. PHYSICAL EXAMINATION: Alert, oriented x3. Pulse is 67, blood pressure 130/80, respirations 17, temperature 98.4, pulse ox 94% on 2 L. HEENT: Conjunctivae normal. NECK: Supple. No JVD. RESPIRATORY SYSTEM: Breath sounds diminished at the bases bilateral scattered rhonchi and crackles. ABDOMEN: Soft nontender. LEGS: No edema, no swelling. LABS: CBC within normal limits and glucose 133. Other labs are noted. ASSESSMENT: 1. Acute COVID-19 infection with possible bilateral interstitial pneumonia, viral interstitial pneumonia. 2. Hyponatremia. 3. Increased creatinine with possible acute renal failure acute tubular necrosis multifactorial. 4. Increased CRP. 5. History of asthma. 6. Hypertension. 7. Hyperlipidemia. 8. Anxiety, depression. 9. Obesity with body mass index of 38.5. 10.FULL CODE. RECOMMENDATIONS AND DISCUSSION: In this 59-year-old gentleman with a past medical of multiple medical problems, we will monitor the patient closely. Continue the rest of medications. Dr. Choi's recommended Remdesivir. We will continue to monitor. Await testing at this time, however prognosis guarded because of multiple complex medical issues. Further recommendations to follow. Discussed with the patient. MMODL / IJN: [id number] /
[2020-01-04] MEDS ORDERED: REMDESIVIR (EUA) 200 MG in SODIUM CHLORIDE 0.9% 250 ML IVPB ONE (21:00)
[2020-01-04] MEDS: MONTELUKAST 10 MG TAB PO SCH (21:32)
[2020-01-04] MEDS: ATORVASTATIN 20 MG TAB PO SCH (21:32)
[2020-01-05] MEDS: HYDROcodone/APAP 5-325MG 1 EACH TAB PO PRN (00:02)
[2020-01-05 06:01] LABS: Basophils % (A) 0 %; Eosinophils % (A) 0 %; HCT 45.3 % (39.0-53.0); HGB 14.8 gm/dL (13.0-17.5); Lymphocytes # (A) 0.9 k/uL (1.0-4.8); Lymphocytes % (A) 10 %; MCHC 32.7 g/dL (31.0-37.0); MCV 91.6 fL (80.0-100.0); Mean Platelet Volume 7.7; Monocytes # (A) 0.5 k/uL (0-1.0); Monocytes % (A) 5 %; Neutrophils # (A) 7.9 k/uL (1.3-7.7); Neutrophils % (A) 84 %; Platelet Count 164 k/uL (150-450); RBC 4.95 m/uL (4.30-5.90); RDW 12.7 % (11.5-15.5); WBC 9.4 k/uL (3.8-10.6)
[2020-01-05] MEDS: ACETAMINOPHEN TAB 325 MG TAB PO PRN ×3 (07:30→20:24)
[2020-01-05] MEDS: ZINC SULFATE 220 MG CAP PO SCH (07:31)
[2020-01-05] MEDS: OXYBUTYNIN 10 MG TAB.ER.24 PO SCH (07:31)
[2020-01-05] MEDS: dexAMETHasone 4 MG TAB PO SCH (07:31)
[2020-01-05] MEDS: GABAPENTIN 300 MG CAP PO SCH ×3 (07:31→20:24)
[2020-01-05] MEDS: LOSARTAN 50 MG TAB PO SCH (07:31)
[2020-01-05] MEDS: ESCITALOPRAM 10 MG TAB PO SCH (07:31)
[2020-01-05] MEDS: MULTIVITAMINS, THERA 1 EACH TAB PO SCH (07:31)
[2020-01-05] MEDS: buPROPion XL 150 MG TAB.ER.24H PO SCH (07:31)
[2020-01-05] MEDS: ENOXAPARIN 40 MG/0.4 ML SYRINGE SQ SCH ×2 (07:32→20:24)
[2020-01-05] MEDS: SYMBICORT 160-4.5 MCG INHALER INHALATION SCH ×2 (08:51→16:19)
[2020-01-05] MEDS: ALBUTEROL HFA INHALER INHALATION SCH ×3 (08:51→16:12)
[2020-01-05 09:28] LABS: African American GFR (CKD) 68.7 (60.0-200.0); Anion Gap 5.3 mmol/L (4.00-12.00); BUN/Creat Ratio 16.92 Ratio (12.00-20.00); Calcium 8.3 mg/dL (8.7-10.3); Carbon Dioxide 30.7 mmol/L (21.6-31.8); Non-African American GFR(CKD) 59.3 (60.0-200.0); Potassium 4.7 mmol/L (3.5-5.5)
[2020-01-05] MEDS: SODIUM CHLORIDE 0.9% 1,000 ML IV SCH ×2 (10:36→20:23)
--- NOTE | 2020-01-05 11:03 | P.PN ---
Subjective Progress Note Date: 01/05/20 Principal diagnosis: CoVID 19 pneumonitis This is a very pleasant 59-year-old gentleman who has a history of hyperlipidemia, hypertension, asthma. He presented here yesterday with complaints of increasing shortness of breath, chest tightness and fever. Symptoms began earlier this week. 4-5 days prior to arrival. His had tested positive for CoVID 19. He had a rapid antigen test done that was reported as negative. Despite that his system symptoms persisted and he was not getting much better. He was having some mild joint aches and pains. Also having symptoms of nausea and poor appetite. No vomiting. No abdominal pain. No diarrhea. Covid 19 by PCR performed here is positive. He was initiated on Remdesivir last evening. He is seen today in follow-up. He is still having fevers up to 103. He has increased shortness of breath. More hypertensive. He is maintaining O2 saturation in the low 90s on room air. Receiving acetaminophen. White count 9.4. Hemoglobin 14.8. Lymphocytes 0.9. Sodium 138. Potassium 4.7. Creatinine 1.3. He is continued on Symbicort and bronchodilators. Antibiotics in the form of ceftriaxone. Lovenox for DVT prophylaxis. Continued on dexamethasone, zinc, melatonin, vitamin C, vitamin D. Objective - Vital Signs Vital signs: Vital Signs Temp 99.9 F H 01/05/20 10:30 Pulse 79 01/05/20 10:30 Resp 18 01/05/20 10:30 BP 121/78 01/05/20 10:30 Pulse Ox 93 L 01/05/20 10:30 Intake & Output 01/04/20 01/05/20 01/05/20 18:59 06:59 18:59 Intake Total 1080 1450 Output Total 600 Balance 480 1450 Intake: Intake, IV Titration 1450 Amount Remdesivir (Eua) 100 mg 250 In Sodium Chloride 0.9% 250 ml @ 250 mls/hr IVPB HS [facility] Rx#:[id number] Sodium Chloride 0.9% 1, 1200 000 ml @ 75 mls/hr IV . [id number] [facility] Rx#:[id number] Oral 1080 Output: Urine 600 Other: Voiding Method Toilet Urinal # Voids 3 - Exam GENERAL EXAM: Alert, pleasant 59-year-old gentleman, up in a chair at the bedsid e, fairly comfortable in no acute distress. HEAD: Normocephalic. EYES: Normal reaction of pupils, equal size. NOSE: Clear with pink turbinates. THROAT: No erythema or exudates. NECK: No masses, no JVD. CHEST: No chest wall deformity. LUNGS: Equal air entry with bilateral scattered rhonchi. CVS: S1 and S2 normal with no audible murmur, regular rhythm. ABDOMEN: No hepatosplenomegaly, normal bowel sounds, no guarding or rigidity. SPINE: No scoliosis or deformity SKIN: No rashes CENTRAL NERVOUS SYSTEM: No focal deficits, tone is normal in all 4 extremities. EXTREMITIES: There is no peripheral edema. No clubbing, no cyanosis. Peripheral pulses are intact. - Labs CBC & Chem 7: 01/05/20 05:41 01/05/20 05:41 Labs: Abnormal Lab Results - Last 24 Hours (Table) 01/03/20 01/05/20 01/05/20 Range/Units 14:25 05:41 05:41 Neutrophils # 7.9 H (1.3-7.7) k/uL Lymphocytes # 0.9 L (1.0-4.8) k/uL Est GFR (CKD-EPI)NonAf 59.3 L (60.0-200.0) Calcium 8.3 L (8.7-10.3) mg/dL Coronavirus (PCR) Detected H (Not Detected) Microbiology - Last 24 Hours (Table) 01/03/20 13:29 Blood Culture - Preliminary Blood No Growth after 24 hours Assessment and Plan Assessment: 1 Acute CoVID 19 pneumonitis 2 Acute hypoxic respiratory failure secondary to above 3 Febrile illness secondary to above 4 History of asthma 5 Hyperlipidemia 6 Hypertension Plan: The patient was seen and evaluated by Dr. Choi Continue Remdesivir Continue dexamethasone, vitamin C, vitamin D, zinc, melatonin, Lovenox Repeat inflammatory markers in the a.m. Repeat chest x-ray in the a.m. We will continue to follow and make further recommendations based on his clinical status I, the cosigning physician, performed a history & physical examination of the patient. Lungs sounds with few scattered rhonchi. Maintaining good O2 saturations in the 90s on room air. I discussed the assessment and plan of care with my nurse practitioner, Blanca Calderon. I attest to the above note as dictated by her.
[2020-01-05] MEDS: ASCORBIC ACID 500 MG TAB PO SCH (12:29)
[2020-01-05] MEDS: CHOLECALCIFEROL 1,000 UNIT TAB PO SCH (12:29)
--- NOTE | 2020-01-05 13:22 | XR ---
EXAMINATION TYPE: XR chest 1V portable DATE OF EXAM: 01/05/2020 CLINICAL HISTORY: Difficulty breathing and pneumonia progress study. TECHNIQUE: Single AP portable upright view of the chest is obtained. COMPARISON: Chest x-ray from one day earlier. CT chest 2 days ago. FINDINGS: Chronic parenchymal changes with patchy predominate peripheral bilateral opacities redemon strated. No pleural effusion or pneumothorax seen. Cardiac silhouette size stable and mildly enlarged . Degenerative change bilateral glenohumeral joints. IMPRESSION: Persistent multifocal bilateral infiltrates greatest in the periphery. No significant clark nge from one day earlier.
[2020-01-05] MEDS: PANTOPRAZOLE 40 MG TABLET PO SCH (14:11)
--- NOTE | 2020-01-05 15:17 | PN ---
PROGRESS NOTE DATE OF SERVICE: 01/04/2010 This 59-year-old gentleman, admitted with COVID-19 bilateral pneumonia, also has respiratory difficulties also. The patient is started on Remdesivir. Dr. Choi is following the patient closely. New chest x-ray which was done today and personally evaluated by me showed persistent bilateral infiltrates mostly in the periphery. No significant change from the previous day was noted. The patient being closely monitored. The patient also had mild fever. Past medical history reviewed. REVIEW OF SYSTEMS: Cardiovascular system: No angina or palpitations. Respiratory: As mentioned earlier. GI: As mentioned earlier. : No dysuria. NERVOUS SYSTEM: No numbness or weakness. CURRENT MEDICATIONS: 1. Tylenol. 2. [place]. 3. Ventolin. 4. Vitamin C. 5. Lipitor. 6. Symbicort. 7. Wellbutrin. 8. Rocephin 1 gm. 9. Cholecalciferol. 10.Dexamethasone. 11.Lovenox. 12.Lexapro. 13.Neurontin. 14.Cozaar. 15.Melatonin. 16.Singulair. 17.Multivitamins. 18.Narcan. 19.Ditropan. 20.Protonix. 21.Remdesivir. 22.Oral zinc. PHYSICAL EXAMINATION: Patient is alert and oriented times three. Pulse 75, blood pressure is 136/60, respiration 19, temperature 99.4, T-max 103, pulse ox 92% on 2 L. HEENT: Conjunctivae normal. NECK: No JVD. CARDIOVASCULAR: S1, S2 muffled. RESPIRATIONS: Breath sounds diminished in the bases. A few scattered rhonchi and crackles. ABDOMEN: Soft, nontender. LEGS are no edema. No swelling. NERVOUS SYSTEM: No focal deficits. LABORATORY DATA: CBC within normal limits. Sodium 138, potassium 4.7. COVID-19 is positive. ASSESSMENT: 1. Acute Covid infection with bilateral interstitial viral pneumonia with respiratory distress with no acute respiratory failure. 2. Hyponatremia. 3. Increased creatinine with acute renal failure with acute tubular necrosis with prerenal factors. 4. Increased CRP. 5. History of asthma. 6. Continued fever with possible pneumonia. 7. Hypertension. 8. Hyperlipidemia. 9. Anxiety/depression. 10.Obesity with body mass index of 38.5. 11.FULL CODE. RECOMMENDATIONS AND DISCUSSION: I recommend to continue current medications, management and symptomatic treatment. Inflammatory markers have been noted. Continue with Remdesivir. I would also recommend continue with broad-spectrum IV antibiotics. Procalcitonin is so high. I would also recommend sputum culture. Chest x-ray reviewed which showed persistent shadows. No significant changes noted, but however the prognosis remains guarded. Further recommendations to follow. MMODL / IJN: [id number] / MTDD
[2020-01-05] MEDS: ATORVASTATIN 20 MG TAB PO SCH (20:24)
[2020-01-05] MEDS: MONTELUKAST 10 MG TAB PO SCH (20:24)
[2020-01-05] MEDS: MELATONIN 5 MG TABLET PO SCH (20:24)
[2020-01-05] MEDS: REMDESIVIR (EUA) 100 MG in SODIUM CHLORIDE 0.9% 250 ML IVPB SCH (21:25)
[2020-01-06 06:27] LABS: Basophils % (A) 0 %; Eosinophils % (A) 0 %; HCT 42.9 % (39.0-53.0); HGB 14.1 gm/dL (13.0-17.5); Lymphocytes # (A) 0.7 k/uL (1.0-4.8); Lymphocytes % (A) 11 %; MCHC 32.9 g/dL (31.0-37.0); MCV 91.1 fL (80.0-100.0); Mean Platelet Volume 7.8; Monocytes # (A) 0.4 k/uL (0-1.0); Monocytes % (A) 7 %; Neutrophils # (A) 4.9 k/uL (1.3-7.7); Neutrophils % (A) 81 %; Platelet Count 135 k/uL (150-450); RBC 4.71 m/uL (4.30-5.90); WBC 6.1 k/uL (3.8-10.6)
[2020-01-06] MEDS: SYMBICORT 160-4.5 MCG INHALER INHALATION SCH ×2 (07:18→19:54)
[2020-01-06] MEDS: ALBUTEROL HFA INHALER INHALATION SCH ×3 (07:18→19:54)
--- NOTE | 2020-01-06 07:55 | XR ---
EXAMINATION TYPE: XR chest 1V portable DATE OF EXAM: 01/06/2020 Comparison: 01/05/2020 Clinical History: 59-year-old male CoVID 19 pneumonitis, hypoxia Findings: Heart mildly enlarged. Increasing patchy peripheral and basilar opacities bilaterally. Impression: Increasing patchy opacities, now more confluent in the periphery and basilar aspects of both lungs. M ild cardiomegaly is unchanged.
[2020-01-06] MEDS: GABAPENTIN 300 MG CAP PO SCH ×3 (10:01→20:03)
[2020-01-06] MEDS: LOSARTAN 50 MG TAB PO SCH (10:01)
[2020-01-06] MEDS: ASCORBIC ACID 500 MG TAB PO SCH (10:02)
[2020-01-06] MEDS: MULTIVITAMINS, THERA 1 EACH TAB PO SCH (10:02)
[2020-01-06] MEDS: ENOXAPARIN 40 MG/0.4 ML SYRINGE SQ SCH ×2 (10:02→20:03)
[2020-01-06] MEDS: PANTOPRAZOLE 40 MG TABLET PO SCH (10:03)
[2020-01-06] MEDS: buPROPion XL 150 MG TAB.ER.24H PO SCH (10:05)
[2020-01-06] MEDS: ESCITALOPRAM 10 MG TAB PO SCH (10:05)
[2020-01-06] MEDS: dexAMETHasone 4 MG TAB PO SCH (10:05)
[2020-01-06] MEDS: OXYBUTYNIN 10 MG TAB.ER.24 PO SCH (10:05)
[2020-01-06] MEDS: ZINC SULFATE 220 MG CAP PO SCH (10:06)
[2020-01-06] MEDS: ACETAMINOPHEN TAB 325 MG TAB PO PRN (11:55)
[2020-01-06] MEDS: SODIUM CHLORIDE 0.9% 1,000 ML IV SCH (11:56)
--- NOTE | 2020-01-06 13:49 | P.PN ---
Subjective Progress Note Date: 01/06/20 Principal diagnosis: Covid 19 pneumonitis This is a very pleasant 59-year-old gentleman who has a history of hyperlipidemia, hypertension, asthma. He presented here yesterday with complaints of increasing shortness of breath, chest tightness and fever. Symptoms began earlier this week. 4-5 days prior to arrival. His had tested positive for CoVID 19. He had a rapid antigen test done that was reported as negative. Despite that his system symptoms persisted and he was not getting much better. He was having some mild joint aches and pains. Also having symptoms of nausea and poor appetite. No vomiting. No abdominal pain. No diarrhea. Covid 19 by PCR performed here is positive. He was initiated on Remdesivir last evening. He is seen today in follow-up. He is still having fevers up to 103. He has increased shortness of breath. More hypertensive. He is maintaining O2 saturation in the low 90s on room air. Receiving acetaminophen. White count 9.4. Hemoglobin 14.8. Lymphocytes 0.9. Sodium 138. Potassium 4.7. Creatinine 1.3. He is continued on Symbicort and bronchodilators. Antibiotics in the form of ceftriaxone. Lovenox for DVT prophylaxis. Continued on dexamethasone, zinc, melatonin, vitamin C, vitamin D. On 01/06/2020 patient seen in follow-up in medical surgical floor. He is awake, and alert, in no acute distress. Appears to be in no acute distress, currently on 2 L of oxygen and the pulse ox of 90-93%, afebrile overnight. Follow-up chest x-ray showed increasing patchy opacities more confluent in the periphery and basilar aspects of both lungs. His COVID 19 PCR was found to be positive, his d-dimer was within normal limits at 0.24, his white count is 6.1, his lymphocyte count is 0.7, electrolytes were within normal limits couple of days ago. Does have some wheezing and shortness of breath with exertion. Does have some mild nausea, weakness. Patient is able to ambulate, blood and sputum cultures have shown no growth so far. Patient was started on Remdesivir, vitamin C, empiric antibiotics, zinc supplement, and Lovenox. Objective - Vital Signs Vital signs: Vital Signs Temp 98.7 F 01/06/20 07:00 Pulse 66 01/06/20 07:00 Resp 22 01/06/20 07:00 BP 112/60 01/06/20 07:00 Pulse Ox 90 L 01/06/20 07:00 Intake & Output 01/05/20 01/06/20 01/06/20 18:59 06:59 18:59 Intake Total 540 Balance 540 Intake: Oral 540 Other: Voiding Method Toilet Urinal # Voids 3 1 - Exam GENERAL EXAM: Alert, very pleasant, 59-year-old white male, 2 L of oxygen pulse ox of 90-93%, comfortable in no apparent distress. HEAD: Normocephalic/atraumatic. EYES: Normal reaction of pupils, equal size. Conjunctiva pink, sclera white. NOSE: Clear with pink turbinates. THROAT: No erythema or exudates. NECK: No masses, no JVD, no thyroid enlargement, no adenopathy. CHEST: No chest wall deformity. Symmetrical expansion. LUNGS: Equal air entry with very minimal wheezes CVS: Regular rate and rhythm, normal S1 and S2, no gallops, no murmurs, no rubs ABDOMEN: Soft, nontender. No hepatosplenomegaly, normal bowel sounds, no guarding or rigidity. EXTREMITIES: No clubbing, no edema, no cyanosis, 2+ pulses and upper and lower extremities. MUSCULOSKELETAL: Muscle strength and tone normal. SPINE: No scoliosis or deformity SKIN: No rashes CENTRAL NERVOUS SYSTEM: Alert and oriented -3. No focal deficits, tone is normal in all 4 extremities. PSYCHIATRIC: Alert and oriented -3. Appropriate affect. Intact judgment and insight. - Labs CBC & Chem 7: 01/06/20 05:49 01/05/20 05:41 Labs: Abnormal Lab Results - Last 24 Hours (Table) 01/06/20 Range/Units 05:49 Plt Count 135 L (150-450) k/uL Lymphocytes # 0.7 L (1.0-4.8) k/uL Microbiology - Last 24 Hours (Table) 01/03/20 13:29 Blood Culture - Preliminary Blood No Growth after 48 hours 01/05/20 09:09 Gram Stain - Preliminary Sputum Sputum Culture - Preliminary Assessment and Plan Plan: Assessment: #1. Acute COVID 19 pneumonitis #2. Acute hypoxic respiratory failure secondary to the above #3. Febrile illness secondary to COVID 19 pneumonitis #4. History of chronic bronchial asthma unspecified #5. The potential #6. Hyperlipidemia Plan: Obtain current medical treatment, will obtain inflammatory markers, patient has been afebrile, no fever in the last 24 hours, we'll continue to follow I performed a history & physical examination of the patient and discussed their management with my nurse practitioner, Madelin aPn. I reviewed the nurse practitioner's note and agree with the documented findings and plan of care. Lung sounds are positive for diffuse wheezes throughout the lung paredes. The findings and the impression was discussed with the patient. I attest to the documentation by the nurse practitioner. Time with Patient: Less than 30
[2020-01-06] MEDS: HYDROcodone/APAP 5-325MG 1 EACH TAB PO PRN (15:04)
[2020-01-06 15:36] LABS: D-Dimer 0.27 mg/L FEU (<0.60)
[2020-01-06 15:46] LABS: African American GFR (CKD) 84.1 (60.0-200.0); Anion Gap 7.8 mmol/L (4.00-12.00); BUN/Creat Ratio 19.09 Ratio (12.00-20.00); C Reactive Protein 8.8 mg/dL (0.0-0.8); Calcium 7.8 mg/dL (8.7-10.3); Carbon Dioxide 25.2 mmol/L (21.6-31.8); Ferritin 490.3 ng/mL (22.0-322.0); Non-African American GFR(CKD) 72.6 (60.0-200.0); Potassium 4.5 mmol/L (3.5-5.5)
--- NOTE | 2020-01-06 20:02 | P.PN ---
Subjective This is a pleasant 5 years old male with multiple medical problems was admitted with respiratory distress secondary to bilateral covid pneumonia CT of the chest also showed bilateral ammonia pneumonia, however patient is afebrile and he is on room air with oxygen saturation in 90s. Patient had a fever of 1 or 3 yesterday however his been afebrile today. No significant respiratory distress. No abdominal pain or nausea vomiting CONSTITUTIONAL: No fever, no malaise, no fatigue. HEENT: No recent visual problems or hearing problems. Denied any sore throat. CARDIOVASCULAR: No orthopnea, PND, no palpitations, no syncope. PULMONARY: No shortness of breath, no cough, no hemoptysis. GASTROINTESTINAL: No diarrhea, no nausea, no vomiting, no abdominal pain. Normoactive bowel sounds. NEUROLOGICAL: No headaches, no weakness, no numbness. Active Medications Generic Name Dose Route Start Last Admin Trade Name Freq PRN Reason Stop Dose Admin Acetaminophen 650 mg 01/05/20 07:05 01/06/20 11:55 Acetaminophen Tab 325 Mg Tab PO 650 mg Q6HR PRN Administration Fever and/ or Pain Hydrocodone Bitart/Acetaminophen 1 each 01/03/20 19:55 01/06/20 15:04 Hydrocodone/Apap 5-325mg 1 Each Tab PO 1 each Q6HR PRN Administration Pain Albuterol Sulfate 2 puff 01/04/20 08:00 01/06/20 19:54 Albuterol Hfa Inhaler INHALATION 2 puff RT-TID ODILIA Administration Ascorbic Acid 500 mg 01/05/20 11:00 01/06/20 10:02 Ascorbic Acid 500 Mg Tab PO 500 mg DAILY ODILIA Administration Atorvastatin Calcium 20 mg 01/03/20 21:00 01/05/20 20:24 Atorvastatin 20 Mg Tab PO 20 mg HS ODILIA Administration Budesonide/Formoterol Fumarate 2 puff 01/03/20 20:11 01/06/20 19:54 Symbicort 160-4.5 Mcg Inhaler INHALATION 2 puff RT-BID ODILIA Administration Bupropion HCl 450 mg 01/04/20 09:00 01/06/20 10:05 Bupropion Xl 150 Mg Tab.Er.24h PO 450 mg DAILY ODILIA Administration Cholecalciferol 1,000 unit 01/05/20 11:00 01/05/20 12:29 Cholecalciferol 1,000 Unit Tab PO 1,000 unit DAILY ODILIA Administration Dexamethasone 6 mg 01/05/20 09:00 01/06/20 10:05 Dexamethasone 4 Mg Tab PO 6 mg DAILY ODILIA Administration Enoxaparin Sodium 40 mg 01/03/20 21:00 01/06/20 10:02 Enoxaparin 40 Mg/0.4 Ml Syringe SQ 40 mg BID ODILIA Administration Escitalopram Oxalate 30 mg 01/04/20 09:00 01/06/20 10:05 Escitalopram 10 Mg Tab PO 30 mg DAILY ODILIA Administration Gabapentin 300 mg 01/03/20 22:00 01/06/20 15:01 Gabapentin 300 Mg Cap PO 300 mg TID ODILIA Administration Sodium Chloride 1,000 mls @ 75 mls/hr 01/03/20 16:45 01/06/20 11:56 Saline 0.9% IV 75 mls/hr .[id number] ODILIA Administration Ceftriaxone Sodium 1 gm/ 50 mls @ 100 mls/hr 01/04/20 09:00 01/06/20 10:03 Sodium Chloride IVPB 100 mls/hr Q24HR ODILIA Administration Remdesivir 100 mg/ Sodium 250 mls @ 250 mls/hr 01/05/20 21:00 01/05/20 21:25 Chloride IVPB 01/08/20 21:59 250 mls/hr HS ODILIA Administration Losartan Potassium 100 mg 01/04/20 09:00 01/06/20 10:01 Losartan 50 Mg Tab PO 100 mg DAILY ODILIA Administration Melatonin 5 mg 01/05/20 21:00 01/05/20 20:24 Melatonin 5 Mg Tablet PO 5 mg HS ODILIA Administration Montelukast Sodium 10 mg 01/03/20 21:00 01/05/20 20:24 Montelukast 10 Mg Tab PO 10 mg HS ODILIA Administration Multivitamins 1 each 01/04/20 09:00 01/06/20 10:02 Multivitamins, Thera 1 Each Tab PO 1 each DAILY ODILIA Administration Naloxone HCl 0.2 mg 01/03/20 16:31 Naloxone 0.4 Mg/Ml 1 Ml Vial IV Q2M PRN Opioid Reversal Oxybutynin Chloride 10 mg 01/04/20 09:00 01/06/20 10:05 Oxybutynin 10 Mg Tab.Er.24 PO 10 mg DAILY ODILIA Administration Pantoprazole Sodium 40 mg 01/05/20 12:45 01/06/20 10:03 Pantoprazole 40 Mg Tablet PO 40 mg [id number] ODILIA Administration Zinc Sulfate 220 mg 01/03/20 18:15 01/06/20 10:06 Zinc Sulfate 220 Mg Cap PO 220 mg DAILY ODILIA Administration Objective - Vital Signs Vital signs: Vital Signs Temp 98.7 F 01/06/20 07:00 Pulse 66 01/06/20 07:00 Resp 22 01/06/20 07:00 BP 112/60 01/06/20 07:00 Pulse Ox 90 L 01/06/20 07:00 Intake & Output 01/05/20 01/06/20 01/06/20 18:59 06:59 18:59 Intake Total 540 Balance 540 Intake: Oral 540 Other: Voiding Method Toilet Urinal # Voids 3 1 - Exam GENERAL: The patient is alert and oriented x3, not in any acute distress. Well developed, well nourished. HEENT: Pupils are round and equally reacting to light. EOMI. No scleral icterus. No conjunctival pallor. Normocephalic, atraumatic. No pharyngeal erythema. No thyromegaly. CARDIOVASCULAR: S1 and S2 present. No murmurs, rubs, or gallops. -PULMONARY: Chest is clear to auscultation, no wheezing . Bilateral scattered crackles. ABDOMEN: Soft, nontender, nondistended, normoactive bowel sounds. No palpable organomegaly. MUSCULOSKELETAL: No joint swelling or deformity. EXTREMITIES: No cyanosis, clubbing, or pedal edema. NEUROLOGICAL: Gross neurological examination did not reveal any focal deficits. SKIN: No rashes. no petechiae. - Labs CBC & Chem 7: 01/06/20 05:49 01/06/20 05:49 Labs: Abnormal Lab Results - Last 24 Hours (Table) 01/06/20 Range/Units 05:49 Plt Count 135 L (150-450) k/uL Lymphocytes # 0.7 L (1.0-4.8) k/uL Microbiology - Last 24 Hours (Table) 01/03/20 13:29 Blood Culture - Preliminary Blood No Growth after 48 hours 01/05/20 09:09 Gram Stain - Preliminary Sputum Sputum Culture - Preliminary Assessment and Plan Assessment: Acute bilateral Covid 19 pneumonia Increase inflammatory markers Hyperlipidemia Hypertension Chronic asthma, not in active tissue Plan: This is a pleasant 5 years old male who presents with bilateral Covid pneumonia. Continue with antibiotics in the form of ceftriaxone for elevated pro-calcitonin. Continue with Lovenox 40 mg twice daily, continue with remedsvir, and oral dexamethasone, pulmonary team on the case Labs and medication were reviewed.. Continue same treatment. Continue with sym ptomatic treatment. Resume home medication. Monitor lytes and vitals. DVT and GI prophylaxis. Further recommendationsas per clinical course of the patient DVT prophylaxis: Subcutaneous Lovenox GI Prophylaxis: Ppi Prognosis is guarded
[2020-01-06] MEDS: MONTELUKAST 10 MG TAB PO SCH (20:03)
[2020-01-06] MEDS: MELATONIN 5 MG TABLET PO SCH (20:03)
[2020-01-06] MEDS: REMDESIVIR (EUA) 100 MG in SODIUM CHLORIDE 0.9% 250 ML IVPB SCH (20:03)
[2020-01-06] MEDS: ATORVASTATIN 20 MG TAB PO SCH (20:03)
[2020-01-07] MEDS: SODIUM CHLORIDE 0.9% 1,000 ML IV SCH ×2 (00:54→16:45)
[2020-01-07 06:53] LABS: D-Dimer 0.25 mg/L FEU (<0.60)
[2020-01-07] MEDS: PANTOPRAZOLE 40 MG TABLET PO SCH (08:02)
[2020-01-07] MEDS: ASCORBIC ACID 500 MG TAB PO SCH (08:02)
[2020-01-07] MEDS: buPROPion XL 150 MG TAB.ER.24H PO SCH (08:02)
[2020-01-07] MEDS: ENOXAPARIN 40 MG/0.4 ML SYRINGE SQ SCH ×2 (08:03→20:03)
[2020-01-07] MEDS: CHOLECALCIFEROL 1,000 UNIT TAB PO SCH (08:03)
[2020-01-07] MEDS: dexAMETHasone 4 MG TAB PO SCH (08:03)
[2020-01-07] MEDS: LOSARTAN 50 MG TAB PO SCH (08:04)
[2020-01-07] MEDS: ESCITALOPRAM 10 MG TAB PO SCH (08:04)
[2020-01-07] MEDS: MULTIVITAMINS, THERA 1 EACH TAB PO SCH (08:04)
[2020-01-07] MEDS: ZINC SULFATE 220 MG CAP PO SCH (08:04)
[2020-01-07] MEDS: OXYBUTYNIN 10 MG TAB.ER.24 PO SCH (08:04)
[2020-01-07] MEDS: GABAPENTIN 300 MG CAP PO SCH ×3 (08:04→20:02)
[2020-01-07] MEDS: ACETAMINOPHEN TAB 325 MG TAB PO PRN ×2 (08:12→19:04)
[2020-01-07] MEDS: SYMBICORT 160-4.5 MCG INHALER INHALATION SCH ×2 (08:53→20:53)
[2020-01-07] MEDS: ALBUTEROL HFA INHALER INHALATION SCH ×3 (08:53→20:53)
--- NOTE | 2020-01-07 12:56 | P.PN ---
Subjective This is a pleasant 5 years old male with multiple medical problems was admitted with respiratory distress secondary to bilateral covid pneumonia CT of the chest also showed bilateral ammonia pneumonia, however patient is afebrile and he is on room air with oxygen saturation in 90s. Patient had a fever of 1 or 3 yesterday however his been afebrile today. No significant respiratory distress. No abdominal pain or nausea vomiting 01/07/2020 Patient clinically is doing better, no significant dyspnea, he has been afebrile since yesterday, last time he had a fever was 103 on 01/04. Patient is saturating 92% and 2 L oxygen nasal cannula. A breathing rate is 18 breaths per minute at rest, however is still little bit tachypneic. D-dimer from today still negative at 0.25. Culture has been negative so far Patient remains on ceftriaxone, dexamethasone, Lovenox 40 mg twice daily and remedsvir CONSTITUTIONAL: No fever, no malaise, no fatigue. HEENT: No recent visual problems or hearing problems. Denied any sore throat. CARDIOVASCULAR: No orthopnea, PND, no palpitations, no syncope. PULMONARY: No shortness of breath, no cough, no hemoptysis. GASTROINTESTINAL: No diarrhea, no nausea, no vomiting, no abdominal pain. Normoactive bowel sounds. NEUROLOGICAL: No headaches, no weakness, no numbness. Active Medications Generic Name Dose Route Start Last Admin Trade Name Freq PRN Reason Stop Dose Admin Acetaminophen 650 mg 01/05/20 07:05 01/07/20 08:12 Acetaminophen Tab 325 Mg Tab PO 650 mg Q6HR PRN Administration Fever and/ or Pain Hydrocodone Bitart/Acetaminophen 1 each 01/03/20 19:55 01/06/20 15:04 Hydrocodone/Apap 5-325mg 1 Each Tab PO 1 each Q6HR PRN Administration Pain Albuterol Sulfate 2 puff 01/04/20 08:00 01/07/20 11:52 Albuterol Hfa Inhaler INHALATION 2 puff RT-TID ODILIA Administration Ascorbic Acid 500 mg 01/05/20 11:00 01/07/20 08:02 Ascorbic Acid 500 Mg Tab PO 500 mg DAILY ODILIA Administration Atorvastatin Calcium 20 mg 01/03/20 21:00 01/06/20 20:03 Atorvastatin 20 Mg Tab PO 20 mg HS ODILIA Administration Budesonide/Formoterol Fumarate 2 puff 01/03/20 20:11 01/07/20 08:53 Symbicort 160-4.5 Mcg Inhaler INHALATION 2 puff RT-BID ODILIA Administration Bupropion HCl 450 mg 01/04/20 09:00 01/07/20 08:02 Bupropion Xl 150 Mg Tab.Er.24h PO 450 mg DAILY ODILIA Administration Cholecalciferol 1,000 unit 01/05/20 11:00 01/07/20 08:03 Cholecalciferol 1,000 Unit Tab PO 1,000 unit DAILY ODILIA Administration Dexamethasone 6 mg 01/05/20 09:00 01/07/20 08:03 Dexamethasone 4 Mg Tab PO 6 mg DAILY ODILIA Administration Enoxaparin Sodium 40 mg 01/03/20 21:00 01/07/20 08:03 Enoxaparin 40 Mg/0.4 Ml Syringe SQ 40 mg BID ODILIA Administration Escitalopram Oxalate 30 mg 01/04/20 09:00 01/07/20 08:04 Escitalopram 10 Mg Tab PO 30 mg DAILY ODILIA Administration Gabapentin 300 mg 01/03/20 22:00 01/07/20 08:04 Gabapentin 300 Mg Cap PO 300 mg TID ODILIA Administration Sodium Chloride 1,000 mls @ 75 mls/hr 01/03/20 16:45 01/07/20 00:54 Saline 0.9% IV 75 mls/hr .[id number] ODILIA Administration Ceftriaxone Sodium 1 gm/ 50 mls @ 100 mls/hr 01/04/20 09:00 01/07/20 08:03 Sodium Chloride IVPB 100 mls/hr Q24HR ODILIA Administration Remdesivir 100 mg/ Sodium 250 mls @ 250 mls/hr 01/05/20 21:00 01/06/20 20:03 Chloride IVPB 01/08/20 21:59 250 mls/hr HS ODILIA Administration Losartan Potassium 100 mg 01/04/20 09:00 01/07/20 08:04 Losartan 50 Mg Tab PO 100 mg DAILY ODILIA Administration Melatonin 5 mg 01/05/20 21:00 01/06/20 20:03 Melatonin 5 Mg Tablet PO 5 mg HS ODILIA Administration Montelukast Sodium 10 mg 01/03/20 21:00 01/06/20 20:03 Montelukast 10 Mg Tab PO 10 mg HS ODILIA Administration Multivitamins 1 each 01/04/20 09:00 01/07/20 08:04 Multivitamins, Thera 1 Each Tab PO 1 each DAILY ODILIA Administration Naloxone HCl 0.2 mg 01/03/20 16:31 Naloxone 0.4 Mg/Ml 1 Ml Vial IV Q2M PRN Opioid Reversal Oxybutynin Chloride 10 mg 01/04/20 09:00 01/07/20 08:04 Oxybutynin 10 Mg Tab.Er.24 PO 10 mg DAILY ODILIA Administration Pantoprazole Sodium 40 mg 01/05/20 12:45 01/07/20 08:02 Pantoprazole 40 Mg Tablet PO 40 mg [id number] ODILIA Administration Zinc Sulfate 220 mg 01/03/20 18:15 01/07/20 08:04 Zinc Sulfate 220 Mg Cap PO 220 mg DAILY ODILIA Administration Objective - Vital Signs Vital signs: Vital Signs Temp 98.2 F 01/07/20 07:00 Pulse 68 01/07/20 07:00 Resp 18 01/07/20 07:00 BP 143/80 01/07/20 07:00 Pulse Ox 92 L 01/07/20 07:00 Intake & Output 01/06/20 01/07/20 01/07/20 18:59 06:59 18:59 Other: Voiding Method Toilet Urinal # Voids 3 2 - Exam GENERAL: The patient is alert and oriented x3, not in any acute distress. Well developed, well nourished. HEENT: Pupils are round and equally reacting to light. EOMI. No scleral icterus. No conjunctival pallor. Normocephalic, atraumatic. No pharyngeal erythema. No thyromegaly. CARDIOVASCULAR: S1 and S2 present. No murmurs, rubs, or gallops. -PULMONARY: Chest is clear to auscultation, no wheezing . Bilateral scattered crackles. ABDOMEN: Soft, nontender, nondistended, normoactive bowel sounds. No palpable organomegaly. MUSCULOSKELETAL: No joint swelling or deformity. EXTREMITIES: No cyanosis, clubbing, or pedal edema. NEUROLOGICAL: Gross neurological examination did not reveal any focal deficits. SKIN: No rashes. no petechiae. - Labs CBC & Chem 7: 01/06/20 05:49 01/06/20 05:49 Labs: Abnormal Lab Results - Last 24 Hours (Table) 01/06/20 01/07/20 Range/Units 05:49 05:56 Fibrinogen 517 H (200-500) mg/dL Calcium 7.8 L (8.7-10.3) mg/dL Ferritin 490.3 H (22.0-322.0) ng/mL Lactate Dehydrogenase 297 H (120-246) U/L C-Reactive Protein 8.8 H (0.0-0.8) mg/dL Microbiology - Last 24 Hours (Table) 01/05/20 09:09 Gram Stain - Final Sputum Sputum Culture - Final 01/03/20 13:29 Blood Culture - Preliminary Blood No Growth after 72 hours Assessment and Plan Assessment: Acute bilateral Covid 19 pneumonia Increase inflammatory markers Hyperlipidemia Hypertension Chronic asthma, not in active tissue Plan: This is a pleasant 5 years old male who presents with bilateral Covid pneumonia. Continue with antibiotics in the form of ceftriaxone for elevated pro- calcitonin. Continue with Lovenox 40 mg twice daily, continue with remedsvir, and oral dexamethasone, pulmonary team on the case Labs and medication were reviewed.. Continue same treatment. Continue with symptomatic treatment. Resume home medication. Monitor lytes and vitals. DVT and GI prophylaxis. Further recommendationsas per clinical course of the patient DVT prophylaxis: Subcutaneous Lovenox GI Prophylaxis: Ppi Prognosis is guarded
--- NOTE | 2020-01-07 15:41 | P.PN ---
Subjective Progress Note Date: 01/07/20 Principal diagnosis: Covid 19 pneumonitis This is a very pleasant 59-year-old gentleman who has a history of hyperlipidemia, hypertension, asthma. He presented here yesterday with complaints of increasing shortness of breath, chest tightness and fever. Symptoms began earlier this week. 4-5 days prior to arrival. His had tested positive for CoVID 19. He had a rapid antigen test done that was reported as negative. Despite that his system symptoms persisted and he was not getting much better. He was having some mild joint aches and pains. Also having symptoms of nausea and poor appetite. No vomiting. No abdominal pain. No diarrhea. Covid 19 by PCR performed here is positive. He was initiated on Remdesivir last evening. He is seen today in follow-up. He is still having fevers up to 103. He has increased shortness of breath. More hypertensive. He is maintaining O2 saturation in the low 90s on room air. Receiving acetaminophen. White count 9.4. Hemoglobin 14.8. Lymphocytes 0.9. Sodium 138. Potassium 4.7. Creatinine 1.3. He is continued on Symbicort and bronchodilators. Antibiotics in the form of ceftriaxone. Lovenox for DVT prophylaxis. Continued on dexamethasone, zinc, melatonin, vitamin C, vitamin D. On 01/06/2020 patient seen in follow-up in medical surgical floor. He is awake, and alert, in no acute distress. Appears to be in no acute distress, currently on 2 L of oxygen and the pulse ox of 90-93%, afebrile overnight. Follow-up chest x-ray showed increasing patchy opacities more confluent in the periphery and basilar aspects of both lungs. His COVID 19 PCR was found to be positive, his d-dimer was within normal limits at 0.24, his white count is 6.1, his lymphocyte count is 0.7, electrolytes were within normal limits couple of days ago. Does have some wheezing and shortness of breath with exertion. Does have some mild nausea, weakness. Patient is able to ambulate, blood and sputum cultures have shown no growth so far. Patient was started on Remdesivir, vitamin C, empiric antibiotics, zinc supplement, and Lovenox. On 01/07/2020 patient is feeling better, his been afebrile for last 24 hours, inflammatory markers are improving, he is coughing less and less dyspneic, he is on day 3 of Remdeisivr. Remains on oral Decadron, he is on Lovenox for anticoagulation. His vital signs have been stable. Room air pulse ox 92%, no nausea vomiting or diarrhea. Objective - Vital Signs Vital signs: Vital Signs Temp 98.2 F 01/07/20 07:00 Pulse 68 01/07/20 07:00 Resp 18 01/07/20 07:00 BP 143/80 01/07/20 07:00 Pulse Ox 92 L 01/07/20 07:00 Intake & Output 01/06/20 01/07/20 01/07/20 18:59 06:59 18:59 Other: Voiding Method Toilet Urinal # Voids 3 2 - Exam GENERAL EXAM: Alert, very pleasant, 59-year-old white male, 2 L of oxygen pulse ox of 90-93%, comfortable in no apparent distress. HEAD: Normocephalic/atraumatic. EYES: Normal reaction of pupils, equal size. Conjunctiva pink, sclera white. NOSE: Clear with pink turbinates. THROAT: No erythema or exudates. NECK: No masses, no JVD, no thyroid enlargement, no adenopathy. CHEST: No chest wall deformity. Symmetrical expansion. LUNGS: Equal air entry with very minimal wheezes CVS: Regular rate and rhythm, normal S1 and S2, no gallops, no murmurs, no rubs ABDOMEN: Soft, nontender. No hepatosplenomegaly, normal bowel sounds, no guarding or rigidity. EXTREMITIES: No clubbing, no edema, no cyanosis, 2+ pulses and upper and lower extremities. MUSCULOSKELETAL: Muscle strength and tone normal. SPINE: No scoliosis or deformity SKIN: No rashes CENTRAL NERVOUS SYSTEM: Alert and oriented -3. No focal deficits, tone is normal in all 4 extremities. PSYCHIATRIC: Alert and oriented -3. Appropriate affect. Intact judgment and insight. - Labs CBC & Chem 7: 01/06/20 05:49 01/06/20 05:49 Labs: Abnormal Lab Results - Last 24 Hours (Table) 01/06/20 01/07/20 Range/Units 05:49 05:56 Fibrinogen 517 H (200-500) mg/dL Calcium 7.8 L (8.7-10.3) mg/dL Ferritin 490.3 H (22.0-322.0) ng/mL Lactate Dehydrogenase 297 H (120-246) U/L C-Reactive Protein 8.8 H (0.0-0.8) mg/dL Microbiology - Last 24 Hours (Table) 01/05/20 09:09 Gram Stain - Final Sputum Sputum Culture - Final 01/03/20 13:29 Blood Culture - Preliminary Blood No Growth after 72 hours Assessment and Plan Plan: Assessment: #1. Acute COVID 19 pneumonitis #2. Acute hypoxic respiratory failure secondary to the above #3. Febrile illness secondary to COVID 19 pneumonitis #4. History of chronic bronchial asthma unspecified #5. The potential #6. Hyperlipidemia Plan: Continue Remdesivir, continue Decadron, Lovenox, we will continue to follow inflammatory markers, patient is feeling better, his been afebrile, vital signs have been stable. I performed a history & physical examination of the patient and discussed their management with my nurse practitioner, Madelin Pan. I reviewed the nurse practitioner's note and agree with the documented findings and plan of care. Lung sounds are positive for diffuse wheezes throughout the lung paredes. The findings and the impression was discussed with the patient. I attest to the doc umentation by the nurse practitioner. Time with Patient: Less than 30
[2020-01-07] MEDS: MONTELUKAST 10 MG TAB PO SCH (20:02)
[2020-01-07] MEDS: MELATONIN 5 MG TABLET PO SCH (20:02)
[2020-01-07] MEDS: REMDESIVIR (EUA) 100 MG in SODIUM CHLORIDE 0.9% 250 ML IVPB SCH (20:02)
[2020-01-07] MEDS: ATORVASTATIN 20 MG TAB PO SCH (20:02)
[2020-01-08] MEDS: SODIUM CHLORIDE 0.9% 1,000 ML IV SCH ×2 (03:07→16:10)
[2020-01-08] MEDS: ENOXAPARIN 40 MG/0.4 ML SYRINGE SQ SCH ×2 (08:04→20:44)
[2020-01-08] MEDS: ASCORBIC ACID 500 MG TAB PO SCH (08:04)
[2020-01-08] MEDS: LOSARTAN 50 MG TAB PO SCH (08:04)
[2020-01-08] MEDS: PANTOPRAZOLE 40 MG TABLET PO SCH (08:04)
[2020-01-08] MEDS: MULTIVITAMINS, THERA 1 EACH TAB PO SCH (08:04)
[2020-01-08] MEDS: CHOLECALCIFEROL 1,000 UNIT TAB PO SCH (08:04)
[2020-01-08] MEDS: OXYBUTYNIN 10 MG TAB.ER.24 PO SCH (08:05)
[2020-01-08] MEDS: GABAPENTIN 300 MG CAP PO SCH ×3 (08:05→20:44)
[2020-01-08] MEDS: ESCITALOPRAM 10 MG TAB PO SCH (08:06)
[2020-01-08] MEDS: dexAMETHasone 4 MG TAB PO SCH (08:06)
[2020-01-08] MEDS: buPROPion XL 150 MG TAB.ER.24H PO SCH (08:06)
[2020-01-08] MEDS: SYMBICORT 160-4.5 MCG INHALER INHALATION SCH ×2 (09:00→21:23)
[2020-01-08] MEDS: ALBUTEROL HFA INHALER INHALATION SCH ×3 (09:00→21:23)
--- NOTE | 2020-01-08 09:31 | XR ---
EXAMINATION TYPE: XR chest 1V portable DATE OF EXAM: 01/08/2020 COMPARISON: 01/06/2020 INDICATION: Covid pneumonia TECHNIQUE: Single frontal view of the chest is obtained. FINDINGS: The heart size is enlarged. The pulmonary vasculature is normal. There is diffuse increased lung markings bilaterally. This appears stable. IMPRESSION: 1. Essentially stable diffuse infiltrates can be compatible with atypical pneumonia.
[2020-01-08 09:53] LABS: C Reactive Protein 3.6 mg/dL (0.0-0.8)
[2020-01-08 10:02] LABS: Ferritin 447.5 ng/mL (22.0-322.0)
--- NOTE | 2020-01-08 13:42 | P.PN ---
Subjective Progress Note Date: 01/08/20 Principal diagnosis: CoVID 19 pneumonitis This is a very pleasant 59-year-old gentleman who has a history of hyperlipidemia, hypertension, asthma. He presented here yesterday with complaints of increasing shortness of breath, chest tightness and fever. Symptoms began earlier this week. 4-5 days prior to arrival. His had tested positive for CoVID 19. He had a rapid antigen test done that was reported as negative. Despite that his system symptoms persisted and he was not getting much better. He was having some mild joint aches and pains. Also having symptoms of nausea and poor appetite. No vomiting. No abdominal pain. No diarrhea. Covid 19 by PCR performed here is positive. He was initiated on Remdesivir last evening. He is seen today in follow-up. He is still having fevers up to 103. He has increased shortness of breath. More hypertensive. He is maintaining O2 saturation in the low 90s on room air. Receiving acetaminophen. White count 9.4. Hemoglobin 14.8. Lymphocytes 0.9. Sodium 138. Potassium 4.7. Creatinine 1.3. He is continued on Symbicort and bronchodilators. Antibiotics in the form of ceftriaxone. Lovenox for DVT prophylaxis. Continued on dexamethasone, zinc, melatonin, vitamin C, vitamin D. The patient is seen today 01/08/2020 in follow-up on the regular medical floor. He is awake and alert in no acute distress. He is currently sitting up in a chair at the bedside. Afebrile. He is still quite dyspneic with minimal exertion. Saturation at 85% on room air with activity. 90% at rest. Sputum and blood cultures reveal no growth. Ferritin 447. LDH 295. C-reactive protein 3.6. This is day 5 of Remdesivir. He remains on Symbicort, albuterol, vitamin C, dexamethasone, Protonix. Objective - Vital Signs Vital signs: Vital Signs Temp 98.4 F 01/08/20 07:00 Pulse 96 01/08/20 11:11 Resp 18 01/08/20 08:00 BP 145/75 01/08/20 07:00 Pulse Ox 85 L 01/08/20 11:11 Intake & Output 01/07/20 01/08/20 01/08/20 18:59 06:59 18:59 Intake Total 200 250 Balance 200 250 Intake: Oral 200 250 Other: Voiding Method Toilet Toilet Urinal Urinal # Voids 1 1 1 - Exam GENERAL EXAM: Alert, pleasant 59-year-old gentleman, up in a chair at the bedside, dyspneic on exertion, on 2 L/m per nasal cannula, fairly comfortable in no acute distress. HEAD: Normocephalic. EYES: Normal reaction of pupils, equal size. NOSE: Clear with pink turbinates. THROAT: No erythema or exudates. NECK: No masses, no JVD. CHEST: No chest wall deformity. LUNGS: Equal air entry with bilateral scattered rhonchi. CVS: S1 and S2 normal with no audible murmur, regular rhythm. ABDOMEN: No hepatosplenomegaly, normal bowel sounds, no guarding or rigidity. SPINE: No scoliosis or deformity SKIN: No rashes CENTRAL NERVOUS SYSTEM: No focal deficits, tone is normal in all 4 extremities. EXTREMITIES: There is no peripheral edema. No clubbing, no cyanosis. Peripheral pulses are intact. - Labs CBC & Chem 7: 01/06/20 05:49 01/06/20 05:49 Labs: Abnormal Lab Results - Last 24 Hours (Table) 01/08/20 Range/Units 06:03 Ferritin 447.5 H (22.0-322.0) ng/mL Lactate Dehydrogenase 295 H (120-246) U/L C-Reactive Protein 3.6 H (0.0-0.8) mg/dL Microbiology - Last 24 Hours (Table) 01/03/20 13:29 Blood Culture - Preliminary Blood No Growth after 96 hours 01/05/20 09:09 Gram Stain - Final Sputum Sputum Culture - Final Assessment and Plan Assessment: 1 Acute CoVID 19 pneumonitis 2 Acute hypoxic respiratory failure secondary to above 3 Febrile illness secondary to above 4 History of asthma 5 Hyperlipidemia 6 Hypertension Plan: The patient was seen and evaluated by Dr. Judd Kenny Remdesivir Will most likely need home oxygen Cleared for discharge from the pulmonary standpoint Continue isolation precautions Follow closely with his PCP Follow-up in our office in 4-6 weeks I, the cosigning physician, performed a history & physical examination of the patient. Lungs sounds with few scattered rhonchi. Maintaining good O2 saturations in the 90s on 2 L/m per nasal cannula. I discussed the assessment and plan of care with my nurse practitioner, Blanca Calderon. I attest to the above note as dictated by her.
[2020-01-08] MEDS ORDERED: ALPRAZolam 0.5 MG TAB PO PRN (14:13)
--- NOTE | 2020-01-08 20:05 | P.PN ---
Subjective This is a pleasant 5 years old male with multiple medical problems was admitted with respiratory distress secondary to bilateral covid pneumonia CT of the chest also showed bilateral ammonia pneumonia, however patient is afebrile and he is on room air with oxygen saturation in 90s. Patient had a fever of 1 or 3 yesterday however his been afebrile today. No significant respiratory distress. No abdominal pain or nausea vomiting 01/07/2020 Patient clinically is doing better, no significant dyspnea, he has been afebrile since yesterday, last time he had a fever was 103 on 01/04. Patient is saturating 92% and 2 L oxygen nasal cannula. A breathing rate is 18 breaths per minute at rest, however is still little bit tachypneic. D-dimer from today still negative at 0.25. Culture has been negative so far Patient remains on ceftriaxone, dexamethasone, Lovenox 40 mg twice daily and remedsvir 01/08/2020 Patient is doing well, his respiratory symptoms are minimal and almost resolved. Patient is on room air saturating in 90s, he is afebrile. Vitals are stable Patient is been considered for discharge today and tomorrow after finishing his last dose of remedisvir tonight Objective - Vital Signs Vital signs: Vital Signs Temp 98.7 F 01/08/20 19:33 Pulse 78 01/08/20 19:33 Resp 18 01/08/20 19:33 BP 109/76 01/08/20 19:33 Pulse Ox 92 L 01/08/20 19:33 Intake & Output 01/08/20 01/08/20 01/09/20 06:59 18:59 06:59 Intake Total 200 500 700 Balance 200 500 700 Intake: Intake, IV Titration 150 Amount Sodium Chloride 0.9% 1, 150 000 ml @ 75 mls/hr IV . [id number] [facility] Rx#:[id number] Oral 200 500 550 Other: Voiding Method Toilet Toilet Toilet Urinal Urinal Urinal # Voids 1 1 1 - Exam GENERAL: The patient is alert and oriented x3, not in any acute distress. Well developed, well nourished. HEENT: Pupils are round and equally reacting to light. EOMI. No scleral icterus. No conjunctival pallor. Normocephalic, atraumatic. No pharyngeal erythema. No th yromegaly. CARDIOVASCULAR: S1 and S2 present. No murmurs, rubs, or gallops. -PULMONARY: Chest is clear to auscultation, no wheezing . Bilateral scattered crackles. ABDOMEN: Soft, nontender, nondistended, normoactive bowel sounds. No palpable organomegaly. MUSCULOSKELETAL: No joint swelling or deformity. EXTREMITIES: No cyanosis, clubbing, or pedal edema. NEUROLOGICAL: Gross neurological examination did not reveal any focal deficits. SKIN: No rashes. no petechiae. - Labs CBC & Chem 7: 01/06/20 05:49 01/06/20 05:49 Labs: Abnormal Lab Results - Last 24 Hours (Table) 01/08/20 Range/Units 06:03 Ferritin 447.5 H (22.0-322.0) ng/mL Lactate Dehydrogenase 295 H (120-246) U/L C-Reactive Protein 3.6 H (0.0-0.8) mg/dL Microbiology - Last 24 Hours (Table) 01/03/20 13:29 Blood Culture - Preliminary Blood No Growth after 120 hours Assessment and Plan Assessment: Acute bilateral Covid 19 pneumonia Increase inflammatory markers Hyperlipidemia Hypertension Chronic asthma, not in active tissue Plan: This is a pleasant 5 years old male who presents with bilateral Covid pneumonia. Continue with antibiotics in the form of ceftriaxone for elevated pro- calcitonin. Continue with Lovenox 40 mg twice daily, continue with remedsvir, and oral dexamethasone, pulmonary team on the case Labs and medication were reviewed.. Continue same treatment. Continue with symptomatic treatment. Resume home medication. Monitor lytes and vitals. DVT and GI prophylaxis. Further recommendationsas per clinical course of the patient DVT prophylaxis: Subcutaneous Lovenox GI Prophylaxis: Ppi Prognosis is guarded
[2020-01-08] MEDS: REMDESIVIR (EUA) 100 MG in SODIUM CHLORIDE 0.9% 250 ML IVPB SCH (20:44)
[2020-01-08] MEDS: MELATONIN 5 MG TABLET PO SCH (20:44)
[2020-01-08] MEDS: ATORVASTATIN 20 MG TAB PO SCH (20:44)
[2020-01-08] MEDS: MONTELUKAST 10 MG TAB PO SCH (20:44)
[2020-01-09] MEDS: SODIUM CHLORIDE 0.9% 1,000 ML IV SCH ×2 (04:04→20:18)
[2020-01-09] MEDS: ENOXAPARIN 40 MG/0.4 ML SYRINGE SQ SCH ×2 (07:01→20:11)
[2020-01-09] MEDS: CHOLECALCIFEROL 1,000 UNIT TAB PO SCH (07:02)
[2020-01-09] MEDS: ASCORBIC ACID 500 MG TAB PO SCH (07:02)
[2020-01-09] MEDS: PANTOPRAZOLE 40 MG TABLET PO SCH (07:02)
[2020-01-09] MEDS: GABAPENTIN 300 MG CAP PO SCH ×3 (07:02→20:10)
[2020-01-09] MEDS: MULTIVITAMINS, THERA 1 EACH TAB PO SCH (07:02)
[2020-01-09] MEDS: LOSARTAN 50 MG TAB PO SCH (07:02)
[2020-01-09] MEDS: buPROPion XL 150 MG TAB.ER.24H PO SCH (07:03)
[2020-01-09] MEDS: ESCITALOPRAM 10 MG TAB PO SCH (07:03)
[2020-01-09] MEDS: dexAMETHasone 4 MG TAB PO SCH (07:03)
[2020-01-09] MEDS: OXYBUTYNIN 10 MG TAB.ER.24 PO SCH (07:03)
[2020-01-09] MEDS: ALBUTEROL HFA INHALER INHALATION SCH ×3 (09:14→19:38)
[2020-01-09] MEDS: SYMBICORT 160-4.5 MCG INHALER INHALATION SCH ×2 (09:15→19:38)
--- NOTE | 2020-01-09 10:50 | P.PN ---
Subjective This is a pleasant 5 years old male with multiple medical problems was admitted with respiratory distress secondary to bilateral covid pneumonia CT of the chest also showed bilateral ammonia pneumonia, however patient is afebrile and he is on room air with oxygen saturation in 90s. Patient had a fever of 1 or 3 yesterday however his been afebrile today. No significant respiratory distress. No abdominal pain or nausea vomiting 01/07/2020 Patient clinically is doing better, no significant dyspnea, he has been afebrile since yesterday, last time he had a fever was 103 on 01/04. Patient is saturating 92% and 2 L oxygen nasal cannula. A breathing rate is 18 breaths per minute at rest, however is still little bit tachypneic. D-dimer from today still negative at 0.25. Culture has been negative so far Patient remains on ceftriaxone, dexamethasone, Lovenox 40 mg twice daily and remedsvir 01/08/2020 Patient is doing well, his respiratory symptoms are minimal and almost resolved. Patient is on room air saturating in 90s, he is afebrile. Vitals are stable Patient is been considered for discharge today and tomorrow after finishing his last dose of remedisvir tonight 01/09/2020 today feeling more chest tightness and his oxygen saturation dropped to 86% on room air, patient was placed on 3 L oxygen via nasal cannula and his o xygen saturation currently is 90%. He finished his last dose of remedisvir last night, he continued to be on ceftriaxone, dexamethasone, Lovenox 40 mg We will order chest x-ray and follow-up with pulmonary team recommendation Review of systems CONSTITUTIONAL: No fever, no malaise, no fatigue. HEENT: No recent visual problems or hearing problems. Denied any sore throat. CARDIOVASCULAR: No orthopnea, PND, no palpitations, no syncope. -PULMONARY: Minimal cough, no hemoptysis. GASTROINTESTINAL: No diarrhea, no nausea, no vomiting, no abdominal pain. Normoactive bowel sounds. NEUROLOGICAL: No headaches, no weakness, no numbness. Active Medications Generic Name Dose Route Start Last Admin Trade Name Freq PRN Reason Stop Dose Admin Acetaminophen 650 mg 01/05/20 07:05 01/07/20 19:04 Acetaminophen Tab 325 Mg Tab PO 650 mg Q6HR PRN Administration Fever and/ or Pain Hydrocodone Bitart/Acetaminophen 1 each 01/03/20 19:55 01/06/20 15:04 Hydrocodone/Apap 5-325mg 1 Each Tab PO 1 each Q6HR PRN Administration Pain Albuterol Sulfate 2 puff 01/04/20 08:00 01/09/20 09:14 Albuterol Hfa Inhaler INHALATION 2 puff RT-TID [facility] Administration Alprazolam 0.5 mg 01/08/20 14:13 Alprazolam 0.5 Mg Tab PO BID PRN Anxiety Ascorbic Acid 500 mg 01/05/20 11:00 01/09/20 07:02 Ascorbic Acid 500 Mg Tab PO 500 mg DAILY [facility] Administration Atorvastatin Calcium 20 mg 01/03/20 21:00 01/08/20 20:44 Atorvastatin 20 Mg Tab PO 20 mg HS [facility] Administration Budesonide/Formoterol Fumarate 2 puff 01/03/20 20:11 01/09/20 09:15 Symbicort 160-4.5 Mcg Inhaler INHALATION 2 puff RT-BID [facility] Administration Bupropion HCl 450 mg 01/04/20 09:00 01/09/20 07:03 Bupropion Xl 150 Mg Tab.Er.24h PO 450 mg DAILY [facility] Administration Cholecalciferol 1,000 unit 01/05/20 11:00 01/09/20 07:02 Cholecalciferol 1,000 Unit Tab PO 1,000 unit DAILY [facility] Administration Dexamethasone 6 mg 01/05/20 09:00 01/09/20 07:03 Dexamethasone 4 Mg Tab PO 6 mg DAILY [facility] Administration Enoxaparin Sodium 40 mg 01/03/20 21:00 01/09/20 07:01 Enoxaparin 40 Mg/0.4 Ml Syringe SQ 40 mg BID [facility] Administration Escitalopram Oxalate 30 mg 01/04/20 09:00 01/09/20 07:03 Escitalopram 10 Mg Tab PO 30 mg DAILY [facility] Administration Gabapentin 300 mg 01/03/20 22:00 01/09/20 07:02 Gabapentin 300 Mg Cap PO 300 mg TID [facility] Administration Sodium Chloride 1,000 mls @ 75 mls/hr 01/03/20 16:45 01/09/20 04:04 Saline 0.9% IV Not Given .[id number] [facility] Ceftriaxone Sodium 1 gm/ 50 mls @ 100 mls/hr 01/04/20 09:00 01/09/20 07:02 Sodium Chloride IVPB 100 mls/hr Q24HR [facility] Administration Losartan Potassium 100 mg 01/04/20 09:00 01/09/20 07:02 Losartan 50 Mg Tab PO 100 mg DAILY [facility] Administration Melatonin 5 mg 01/05/20 21:00 01/08/20 20:44 Melatonin 5 Mg Tablet PO 5 mg HS [facility] Administration Montelukast Sodium 10 mg 01/03/20 21:00 01/08/20 20:44 Montelukast 10 Mg Tab PO 10 mg HS [facility] Administration Multivitamins 1 each 01/04/20 09:00 01/09/20 07:02 Multivitamins, Thera 1 Each Tab PO 1 each DAILY [facility] Administration Naloxone HCl 0.2 mg 01/03/20 16:31 Naloxone 0.4 Mg/Ml 1 Ml Vial IV Q2M PRN Opioid Reversal Oxybutynin Chloride 10 mg 01/04/20 09:00 01/09/20 07:03 Oxybutynin 10 Mg Tab.Er.24 PO 10 mg DAILY [facility] Administration Pantoprazole Sodium 40 mg 01/05/20 12:45 01/09/20 07:02 Pantoprazole 40 Mg Tablet PO 40 mg [id number] [facility] Administration Objective - Vital Signs Vital signs: Vital Signs Temp 97.9 F 01/09/20 07:00 Pulse 74 01/09/20 07:00 Resp 19 01/09/20 07:39 BP 139/80 01/09/20 07:00 Pulse Ox 90 L 01/09/20 07:39 Intake & Output 01/08/20 01/09/20 01/09/20 18:59 06:59 18:59 Intake Total 500 1850 Output Total 300 Balance 500 1550 Intake: Intake, IV Titration 1000 Amount Remdesivir (Eua) 100 mg 250 In Sodium Chloride 0.9% 250 ml @ 250 mls/hr IVPB HS [facility] Rx#:[id number] Sodium Chloride 0.9% 1, 750 000 ml @ 75 mls/hr IV . [id number] [facility] Rx#:[id number] Oral 500 850 Output: Urine 300 Other: Voiding Method Toilet Toilet Urinal Urinal # Voids 1 1 - Exam GENERAL: The patient is alert and oriented x3, not in any acute distress. Well developed, well nourished. HEENT: Pupils are round and equally reacting to light. EOMI. No scleral icterus. No conjunctival pallor. Normocephalic, atraumatic. No pharyngeal erythema. No thyromegaly. CARDIOVASCULAR: S1 and S2 present. No murmurs, rubs, or gallops. -PULMONARY: Chest is clear to auscultation, no wheezing . Bilateral scattered crackles. ABDOMEN: Soft, nontender, nondistended, normoactive bowel sounds. No palpable organomegaly. MUSCULOSKELETAL: No joint swelling or deformity. EXTREMITIES: No cyanosis, clubbing, or pedal edema. NEUROLOGICAL: Gross neurological examination did not reveal any focal deficits. SKIN: No rashes. no petechiae. - Labs CBC & Chem 7: 01/06/20 05:49 01/06/20 05:49 Labs: Microbiology - Last 24 Hours (Table) 01/03/20 13:29 Blood Culture - Preliminary Blood No Growth after 120 hours Assessment and Plan Assessment: Acute bilateral Covid 19 pneumonia Acute hypoxic respiratory failure Increase inflammatory markers Hyperlipidemia Hypertension Chronic asthma, not in active tissue Plan: This is a pleasant 5 years old male who presents with bilateral Covid pneumonia. Continue with antibiotics in the form of ceftriaxone for elevated pro- calcitonin. Continue with Lovenox 40 mg twice daily, continue with remedsvir, and oral dexamethasone, pulmonary team on the case. Continue with oxygen as needed and repeat chest x-ray Labs and medication were reviewed.. Continue same treatment. Continue with symptomatic treatment. Resume home medication. Monitor lytes and vitals. DVT and GI prophylaxis. Further recommendationsas per clinical course of the patient DVT prophylaxis: Subcutaneous Lovenox GI Prophylaxis: Ppi Prognosis is guarded
--- NOTE | 2020-01-09 11:13 | XR ---
EXAMINATION TYPE: XR chest 1V portable DATE OF EXAM: 01/09/2020 COMPARISON: Prior chest x-ray 01/08/2020, CT chest 01/03/2020 HISTORY: Shortness of breath, abnormal chest x-ray TECHNIQUE: Single frontal view of the chest is obtained. FINDINGS: No interval change in the pleural-parenchymal changes seen on prior exam. Heart appearance remains enlarged, there are prominent epicardial fat pads. There is no evident pneumothorax or pleur al effusion. Bones are unchanged. IMPRESSION: Stable abnormal findings. Correlate for pneumonia
--- NOTE | 2020-01-09 13:00 | P.PN ---
Subjective Progress Note Date: 01/09/20 Principal diagnosis: CoVID 19 pneumonitis This is a very pleasant 59-year-old gentleman who has a history of hyperlipidemia, hypertension, asthma. He presented here yesterday with complaints of increasing shortness of breath, chest tightness and fever. Symptoms began earlier this week. 4-5 days prior to arrival. His had tested positive for CoVID 19. He had a rapid antigen test done that was reported as negative. Despite that his system symptoms persisted and he was not getting much better. He was having some mild joint aches and pains. Also having symptoms of nausea and poor appetite. No vomiting. No abdominal pain. No diarrhea. Covid 19 by PCR performed here is positive. He was initiated on Remdesivir last evening. He is seen today in follow-up. He is still having fevers up to 103. He has increased shortness of breath. More hypertensive. He is maintaining O2 saturation in the low 90s on room air. Receiving acetaminophen. White count 9.4. Hemoglobin 14.8. Lymphocytes 0.9. Sodium 138. Potassium 4.7. Creatinine 1.3. He is continued on Symbicort and bronchodilators. Antibiotics in the form of ceftriaxone. Lovenox for DVT prophylaxis. Continued on dexamethasone, zinc, melatonin, vitamin C, vitamin D. The patient is seen today 01/08/2020 in follow-up on the regular medical floor. He is awake and alert in no acute distress. He is currently sitting up in a chair at the bedside. Afebrile. He is still quite dyspneic with minimal exertion. Saturation at 85% on room air with activity. 90% at rest. Sputum and blood cultures reveal no growth. Ferritin 447. LDH 295. C-reactive protein 3.6. This is day 5 of Remdesivir. He remains on Symbicort, albuterol, vitamin C, dexamethasone, Protonix. The patient is seen today 01/09/2020 in follow-up on the regular medical floor. He is currently sitting up in a chair at the bedside. Awake and alert in no acute distress. He is still dyspneic with minimal exertion. Still with some cough and congestion. His oxygen saturation in room air was 86%. He is currently in the 90s on 3 L/m per nasal cannula. Afebrile. Hemodynamically stable. Blood culture reveals no growth. Sputum culture reveals no growth. He has completed his course of Remdesivir. He remains on dexamethasone, vitamin C, vitamin D, Lovenox, ceftriaxone, zinc, Pepcid, Symbicort. Objective - Vital Signs Vital signs: Vital Signs Temp 97.9 F 01/09/20 07:00 Pulse 74 01/09/20 07:00 Resp 19 01/09/20 07:39 BP 139/80 01/09/20 07:00 Pulse Ox 90 L 01/09/20 07:39 Intake & Output 01/08/20 01/09/20 01/09/20 18:59 06:59 18:59 Intake Total 500 1850 Output Total 300 Balance 500 1550 Intake: Intake, IV Titration 1000 Amount Remdesivir (Eua) 100 mg 250 In Sodium Chloride 0.9% 250 ml @ 250 mls/hr IVPB HS [facility] Rx#:[id number] Sodium Chloride 0.9% 1, 750 000 ml @ 75 mls/hr IV . [id number] [facility] Rx#:[id number] Oral 500 850 Output: Urine 300 Other: Voiding Method Toilet Toilet Urinal Urinal # Voids 1 1 - Exam GENERAL EXAM: Alert, pleasant 59-year-old gentleman, up in a chair at the bedside, dyspneic on exertion, on 3 L/m per nasal cannula, fairly comfortable in no acute distress. HEAD: Normocephalic. EYES: Normal reaction of pupils, equal size. NOSE: Clear with pink turbinates. THROAT: No erythema or exudates. NECK: No masses, no JVD. CHEST: No chest wall deformity. LUNGS: Equal air entry with bilateral scattered rhonchi. CVS: S1 and S2 normal with no audible murmur, regular rhythm. ABDOMEN: No hepatosplenomegaly, normal bowel sounds, no guarding or rigidity. SPINE: No scoliosis or deformity SKIN: No rashes CENTRAL NERVOUS SYSTEM: No focal deficits, tone is normal in all 4 extremities. EXTREMITIES: There is no peripheral edema. No clubbing, no cyanosis. Peripheral pulses are intact. - Labs CBC & Chem 7: 01/06/20 05:49 01/06/20 05:49 Labs: Microbiology - Last 24 Hours (Table) 01/03/20 13:29 Blood Culture - Preliminary Blood No Growth after 120 hours Assessment and Plan Assessment: 1 Acute CoVID 19 pneumonitis 2 Acute hypoxic respiratory failure secondary to above 3 Febrile illness secondary to above 4 History of asthma 5 Hyperlipidemia 6 Hypertension Plan: The patient was seen and evaluated by Dr. Whaley Completed Remdesivir Continue current medications Will most likely need home oxygen Continue isolation precautions I, the cosigning physician, performed a history & physical examination of the patient. Lungs sounds with few scattered rhonchi. Maintaining good O2 saturations in the 90s on 3 L/m per nasal cannula. I discussed the assessment and plan of care with my nurse practitioner, Blanca Calderon. I attest to the above note as dictated by her.
[2020-01-09 14:56] VITALS: BMI 38.4
[2020-01-09] MEDS: ZINC SULFATE 220 MG CAP PO SCH (16:40)
[2020-01-09] MEDS: ACETAMINOPHEN TAB 325 MG TAB PO PRN (20:10)
[2020-01-09] MEDS: MONTELUKAST 10 MG TAB PO SCH (20:11)
[2020-01-09] MEDS: ATORVASTATIN 20 MG TAB PO SCH (20:11)
[2020-01-09] MEDS: MELATONIN 5 MG TABLET PO SCH (20:17)
[2020-01-10] MEDS: SODIUM CHLORIDE 0.9% 1,000 ML IV SCH (02:26)
[2020-01-10 06:56] LABS: Glucose,Whole Blood 96 mg/dL (75-99)
[2020-01-10] MEDS: GABAPENTIN 300 MG CAP PO SCH (07:46)
[2020-01-10] MEDS: ASCORBIC ACID 500 MG TAB PO SCH (07:46)
[2020-01-10] MEDS: CHOLECALCIFEROL 1,000 UNIT TAB PO SCH (07:46)
[2020-01-10] MEDS: MULTIVITAMINS, THERA 1 EACH TAB PO SCH (07:46)
[2020-01-10] MEDS: LOSARTAN 50 MG TAB PO SCH (07:47)
[2020-01-10] MEDS: ZINC SULFATE 220 MG CAP PO SCH (07:47)
[2020-01-10] MEDS: OXYBUTYNIN 10 MG TAB.ER.24 PO SCH (07:47)
[2020-01-10] MEDS: buPROPion XL 150 MG TAB.ER.24H PO SCH (07:48)
[2020-01-10] MEDS: ENOXAPARIN 40 MG/0.4 ML SYRINGE SQ SCH (07:49)
[2020-01-10] MEDS: dexAMETHasone 4 MG TAB PO SCH (07:49)
[2020-01-10] MEDS: ESCITALOPRAM 10 MG TAB PO SCH (07:49)
[2020-01-10] MEDS: ALBUTEROL HFA INHALER INHALATION SCH ×2 (08:09→11:31)
[2020-01-10] MEDS: SYMBICORT 160-4.5 MCG INHALER INHALATION SCH (08:09)
[2020-01-10] MEDS ORDERED: FAMOTIDINE 20 MG TAB PO SCH (09:00)
[2020-01-10 11:14] LABS: Glucose,Whole Blood 105 mg/dL (75-99)
--- NOTE | 2020-01-10 13:36 | P.PN ---
Subjective Progress Note Date: 01/10/20 Principal diagnosis: Covid 19 pneumonitis This is a very pleasant 59-year-old gentleman who has a history of hyperlipidemia, hypertension, asthma. He presented here yesterday with complaints of increasing shortness of breath, chest tightness and fever. Symptoms began earlier this week. 4-5 days prior to arrival. His had tested positive for CoVID 19. He had a rapid antigen test done that was reported as negative. Despite that his system symptoms persisted and he was not getting much better. He was having some mild joint aches and pains. Also having symptoms of nausea and poor appetite. No vomiting. No abdominal pain. No diarrhea. Covid 19 by PCR performed here is positive. He was initiated on Remdesivir last evening. He is seen today in follow-up. He is still having fevers up to 103. He has increased shortness of breath. More hypertensive. He is maintaining O2 saturation in the low 90s on room air. Receiving acetaminophen. White count 9.4. Hemoglobin 14.8. Lymphocytes 0.9. Sodium 138. Potassium 4.7. Creatinine 1.3. He is continued on Symbicort and bronchodilators. Antibiotics in the form of ceftriaxone. Lovenox for DVT prophylaxis. Continued on dexamethasone, zinc, melatonin, vitamin C, vitamin D. On 01/06/2020 patient seen in follow-up in medical surgical floor. He is awake, and alert, in no acute distress. Appears to be in no acute distress, currently on 2 L of oxygen and the pulse ox of 90-93%, afebrile overnight. Follow-up chest x-ray showed increasing patchy opacities more confluent in the periphery and basilar aspects of both lungs. His COVID 19 PCR was found to be positive, his d-dimer was within normal limits at 0.24, his white count is 6.1, his lymphocyte count is 0.7, electrolytes were within normal limits couple of days ago. Does have some wheezing and shortness of breath with exertion. Does have some mild nausea, weakness. Patient is able to ambulate, blood and sputum cultures have shown no growth so far. Patient was started on Remdesivir, vitamin C, empiric antibiotics, zinc supplement, and Lovenox. On 01/07/2020 patient is feeling better, his been afebrile for last 24 hours, inflammatory markers are improving, he is coughing less and less dyspneic, he is on day 3 of Remdeisivr. Remains on oral Decadron, he is on Lovenox for anticoagulation. His vital signs have been stable. Room air pulse ox 92%, no nausea vomiting or diarrhea. On 01/10/2020 patient seen in follow-up on medical surgical floor. Patient has finished Remdesivir, overall she is feeling better, however dependent on oxygen, satting 92% on 3 L, breathing at rest seems to be nonlabored, he does get short of breath with exertion, he's been afebrile. Sputum blood cultures have been negative. Repeat chest x-ray has been reviewed showing stable diffuse infiltrates bilateral, vital signs have been stable, inflammatory markers reviewed, CRP is improving, LDH is relatively stable, and ferritin is relatively stable. Objective - Vital Signs Vital signs: Vital Signs Temp 97.8 F 01/10/20 07:00 Pulse 65 01/10/20 07:00 Resp 17 01/10/20 07:45 BP 155/79 01/10/20 07:00 Pulse Ox 92 L 01/10/20 07:00 Intake & Output 01/09/20 01/10/20 01/10/20 18:59 06:59 18:59 Weight 117.934 kg Other: Voiding Method Toilet Toilet Urinal Urinal # Voids 3 1 - Exam GENERAL EXAM: Alert, very pleasant, 59-year-old white male, 2 L of oxygen pulse ox of 90-93%, comfortable in no apparent distress. HEAD: Normocephalic/atraumatic. EYES: Normal reaction of pupils, equal size. Conjunctiva pink, sclera white. NOSE: Clear with pink turbinates. THROAT: No erythema or exudates. NECK: No masses, no JVD, no thyroid enlargement, no adenopathy. CHEST: No chest wall deformity. Symmetrical expansion. LUNGS: Equal air entry with very minimal wheezes CVS: Regular rate and rhythm, normal S1 and S2, no gallops, no murmurs, no rubs ABDOMEN: Soft, nontender. No hepatosplenomegaly, normal bowel sounds, no guarding or rigidity. EXTREMITIES: No clubbing, no edema, no cyanosis, 2+ pulses and upper and lower extremities. MUSCULOSKELETAL: Muscle strength and tone normal. SPINE: No scoliosis or deformity SKIN: No rashes CENTRAL NERVOUS SYSTEM: Alert and oriented -3. No focal deficits, tone is normal in all 4 extremities. PSYCHIATRIC: Alert and oriented -3. Appropriate affect. Intact judgment and insight. - Labs CBC & Chem 7: 01/06/20 05:49 01/06/20 05:49 Labs: Abnormal Lab Results - Last 24 Hours (Table) 01/10/20 Range/Units 11:12 POC Glucose (mg/dL) 105 H (75-99) mg/dL Microbiology - Last 24 Hours (Table) 01/03/20 13:29 Blood Culture - Final Blood No Growth after 144 hours Assessment and Plan Plan: Assessment: #1. Acute COVID 19 pneumonitis #2. Acute hypoxic respiratory failure secondary to the above #3. Febrile illness secondary to COVID 19 pneumonitis #4. History of chronic bronchial asthma unspecified #5. The potential #6. Hyperlipidemia Plan: Continue Decadron to complete the 10 day course, patient has completed Remdesivir, however remains dependent on oxygen, no fever or chills, hemodynamically stable, he is breathing easier, overall feeling better, some tumor markers have improved, chest x-ray still shows stable diffuse bilateral infiltrates, tolerating ambulation, have been events overnight, from pulmonary perspective he came to consider for discharge home today on home oxygen. He can follow up in outpatient basis with Dr. Whaley in 6 weeks I performed a history & physical examination of the patient and discussed their management with my nurse practitioner, Madelin Pan. I reviewed the nurse practitioner's note and agree with the documented findings and plan of care. Lung sounds are positive for diffuse wheezes throughout the lung paredes. The findings and the impression was discussed with the patient. I attest to the documentation by the nurse practitioner. Time with Patient: Less than 30
[2020-01-10 14:52] VITALS: BP 146/73; PULSE 69; RESP 16; TEMP 98.7
== END 2020-01-10 15:36 | disposition home or self-care (01) | DRG 177 ==
LOC: EC 12:06 → 4SSUR 16:33 → OBSVTOIN 01-04 12:08
PROVIDERS: ADMIT Hospitalist; ATTEND Hospitalist
PROC: XW033E5 Introduction of Remdesivir Anti-infective into Peripheral Vein, Percutaneous Approach, New Technology Group 5 (ICD-10-PCS; principal; 2020-01-04)
DX: U07.1 COVID-19 (principal); J12.89 Other viral pneumonia; N17.0 Acute kidney failure with tubular necrosis; J96.01 Acute respiratory failure with hypoxia; E87.1 Hypo-osmolality and hyponatremia; E78.5 Hyperlipidemia, unspecified; I10 Essential (primary) hypertension; F32.9 Major depressive disorder, single episode, unspecified; F41.9 Anxiety disorder, unspecified; J45.909 Unspecified asthma, uncomplicated; E66.9 Obesity, unspecified; Z68.38 Body mass index [BMI] 38.0-38.9, adult; R19.7 Diarrhea, unspecified; R51.9 Headache, unspecified; Z79.899 Other long term (current) drug therapy; Z71.3 Dietary counseling and surveillance; Z88.6 Allergy status to analgesic agent; Z88.5 Allergy status to narcotic agent
CPT/HCPCS: 36415; 70450; 71045; 71250; 80048; 80053; 81001; 82728; 83605; 83615; 83735; 84145; 85025; 85379; 85384; 85610; 85652; 85730; 86140; 87040; 87070; 87205; 87502; 93005; 94640; 96365; 96366; 96367; 96375; 99285

== ENCOUNTER 2020-01-17 11:00 | Inpatient (IN) | payer BC ==
[2020-01-17] MEDS ORDERED: SODIUM CHLORIDE 0.9% 500 ML 500 ML IV STA (11:34)
[2020-01-17] MEDS ORDERED: HYDROmorphone 0.5 MG/0.5 ML SYRINGE IVP STA (11:38)
--- NOTE | 2020-01-17 11:38 | ED ---
General Adult HPI - General Chief complaint: Neuro Symptoms/Deficit Stated complaint: Headache,SOB Time Seen by Provider: 01/17/20 11:30 Source: patient, RN notes reviewed, old records reviewed Mode of arrival: wheelchair Limitations: no limitations - History of Present Illness Initial comments: 59-year-old male presenting for evaluation of headache and left-sided facial droop. Patient was diagnosed with coronavirus 2 weeks ago and had been discharged on supplemental oxygen. He has a history of asthma and COPD. This morning he woke at 9 AM and his noticed that the left side of his face was drooping. He did not feel any associated numbness. No limb weakness. He states he's had on and off headache for the past 2 weeks which she attributed to his rotavirus. He does report some dizziness as well. Facial droop resolved at the time my initial evaluation. - Related Data Home Medications Medication Instructions Recorded Confirmed Atorvastatin Calcium [Lipitor] 20 mg PO HS 05/18/18 01/03/20 Escitalopram [Lexapro] 30 mg PO DAILY 05/18/18 01/03/20 Losartan Potassium 100 mg PO DAILY 05/18/18 01/03/20 Montelukast Sodium [Singulair] 10 mg PO HS 05/18/18 01/03/20 Multivit-Min/FA/Lycopen/Lutein 1 tab PO DAILY 05/18/18 01/03/20 [Centrum Silver Men Tablet] buPROPion XL [Wellbutrin XL] 300 mg PO DAILY 05/18/18 01/03/20 Gabapentin [Neurontin] 300 mg PO TID 01/03/20 01/03/20 Oxybutynin Chloride [Ditropan XL] 10 mg PO DAILY 01/03/20 01/03/20 buPROPion XL [Wellbutrin XL] 150 mg PO DAILY 01/03/20 01/03/20 Previous Rx's Medication Instructions Recorded Albuterol Inhaler [Ventolin Hfa 2 puff INHALATION RT-TID #1 inh 01/10/20 Inhaler] Ascorbic Acid [Vitamin C] 500 mg PO DAILY #21 tab 01/10/20 Cefuroxime Axetil [Ceftin] 500 mg PO BID 5 Days #10 tab 01/10/20 Cholecalciferol [Vitamin D3 (25 1,000 unit PO DAILY #30 tab 01/10/20 Mcg = 1000 Iu)] Famotidine [Pepcid] 20 mg PO DAILY #30 tab 01/10/20 Zinc Sulfate [Orazinc] 220 mg PO DAILY #30 cap 01/10/20 dexAMETHasone [Hexadrol] 6 mg PO DAILY 4 Days #6 tab 01/10/20 Allergies Allergy/AdvReac Type Severity Reaction Status Date / Time aspirin Allergy Anaphylaxis Verified 01/17/20 11:28 ibuprofen [From Motrin] Allergy Anaphylaxis Verified 01/17/20 11:28 codeine AdvReac "dries Verified 01/17/20 11:28 system out" Review of Systems ROS Statement: Those systems with pertinent positive or pertinent negative responses have been documented in the HPI. ROS Other: All systems not noted in ROS Statement are negative. Past Medical History Past Medical History: Asthma, Hyperlipidemia, Hypertension, Pneumonia Additional Past Medical History / Comment(s): Covid + 01/05 History of Any Multi-Drug Resistant Organisms: None Reported Past Surgical History: No Surgical Hx Reported Past Psychological History: Anxiety, Depression Smoking Status: Never smoker Past Alcohol Use History: Rare Past Drug Use History: None Reported General Exam Limitations: no limitations General appearance: alert, in no apparent distress Head exam: Present: atraumatic, normocephalic Eye exam: Present: normal appearance, PERRL ENT exam: Present: normal exam Neck exam: Present: normal inspection. Absent: tenderness, meningismus Respiratory exam: Present: rales, decreased breath sounds. Absent: respiratory distress Cardiovascular Exam: Present: regular rate, normal rhythm GI/Abdominal exam: Present: soft. Absent: distended, tenderness, guarding Extremities exam: Present: normal inspection, normal capillary refill. Absent: pedal edema Neurological exam: Present: alert, oriented X3, CN II-XII intact, normal gait. Absent: motor sensory deficit (NIH is 0) Psychiatric exam: Present: normal affect, normal mood Skin exam: Present: warm, dry, intact. Absent: cyanosis, diaphoretic Course Vital Signs 01/17/20 01/17/20 01/17/20 11:25 11:43 11:58 Temperature 98.0 F Pulse Rate 66 60 64 Respiratory 20 18 18 Rate Blood Pressure 113/72 113/79 124/69 O2 Sat by Pulse 98 98 97 Oximetry 01/17/20 01/17/20 12:13 13:02 Temperature Pulse Rate 62 69 Respiratory 18 18 Rate Blood Pressure 112/74 126/76 O2 Sat by Pulse 95 95 Oximetry - Reevaluation(s) Reevaluation #1: 01/17/[address] Mccann, not a TPA candidate or thrombectomy candidate, NIH of 0 EKG Findings - EKG Comments: EKG Findings:: EKG: Normal sinus rhythm, rate of 60, MN interval 154, QRS duration 96, QTC [address] segment elevation. Medical Decision Making - Medical Decision Making 59-year-old male presenting with headache, left facial droop, facial droop resolved at the time my evaluation, NIH is 0. He was activated as a code stroke, case was discussed with the stroke intervention was Dr. Mccann. Head CT performed negative for intracranial hemorrhage or mass effect, CT angiography negative for occlusion or stenosis. Patient has normal CBC, normal CMP negative troponin, EKG showing sinus rhythm, chest x-ray showing improved aeration with a known history of coronavirus. Patient will be admitted for TIA workup. Case discussed with Dr. Saldaña who will admit, neurology on consult. - Lab Data Result diagrams: 01/17/20 11:41 01/17/20 11:41 Lab Results 01/17/20 01/17/20 01/17/20 Range/Units 11:41 11:41 11:41 WBC 9.4 (3.8-10.6) k/uL RBC 5.04 (4.30-5.90) m/uL Hgb 15.3 (13.0-17.5) gm/dL Hct 46.1 (39.0-53.0) % MCV 91.4 (80.0-100.0) fL MCH 30.4 (25.0-35.0) pg MCHC 33.3 (31.0-37.0) g/dL RDW 12.8 (11.5-15.5) % Plt Count 256 (150-450) k/uL Neutrophils % 69 % Lymphocytes % 17 % Monocytes % 10 % Eosinophils % 2 % Basophils % 1 % Neutrophils # 6.5 (1.3-7.7) k/uL Lymphocytes # 1.6 (1.0-4.8) k/uL Monocytes # 0.9 (0-1.0) k/uL Eosinophils # 0.2 (0-0.7) k/uL Basophils # 0.1 (0-0.2) k/uL PT 9.5 (9.0-12.0) sec INR 0.9 (<1.2) APTT 22.6 (22.0-30.0) sec Sodium 135 L (137-145) mmol/L Potassium 4.7 (3.5-5.1) mmol/L Chloride 104 (98-107) mmol/L Carbon Dioxide 28 (22-30) mmol/L Anion Gap 3 mmol/L BUN 21 H (9-20) mg/dL Creatinine 1.16 (0.66-1.25) mg/dL Est GFR (CKD-EPI)AfAm 79 (>60 ml/min/1.73 sqM) Est GFR (CKD-EPI)NonAf 69 (>60 ml/min/1.73 sqM) Glucose 105 H (74-99) mg/dL POC Glucose (mg/dL) (75-99) mg/dL POC Glu Crepe Machine Operator ID Calcium 8.8 (8.4-10.2) mg/dL Total Bilirubin 0.8 (0.2-1.3) mg/dL AST 23 (17-59) U/L ALT 37 (4-49) U/L Alkaline Phosphatase 62 (38-126) U/L Troponin I (0.000-0.034) ng/mL Total Protein 5.7 L (6.3-8.2) g/dL Albumin 3.2 L (3.5-5.0) g/dL 01/17/20 01/17/20 Range/Units 11:41 11:42 WBC (3.8-10.6) k/uL RBC (4.30-5.90) m/uL Hgb (13.0-17.5) gm/dL Hct (39.0-53.0) % MCV (80.0-100.0) fL MCH (25.0-35.0) pg MCHC (31.0-37.0) g/dL RDW (11.5-15.5) % Plt Count (150-450) k/uL Neutrophils % % Lymphocytes % % Monocytes % % Eosinophils % % Basophils % % Neutrophils # (1.3-7.7) k/uL Lymphocytes # (1.0-4.8) k/uL Monocytes # (0-1.0) k/uL Eosinophils # (0-0.7) k/uL Basophils # (0-0.2) k/uL PT (9.0-12.0) sec INR (<1.2) APTT (22.0-30.0) sec Sodium (137-145) mmol/L Potassium (3.5-5.1) mmol/L Chloride (98-107) mmol/L Carbon Dioxide (22-30) mmol/L Anion Gap mmol/L BUN (9-20) mg/dL Creatinine (0.66-1.25) mg/dL Est GFR (CKD-EPI)AfAm (>60 ml/min/1.73 sqM) Est GFR (CKD-EPI)NonAf (>60 ml/min/1.73 sqM) Glucose (74-99) mg/dL POC Glucose (mg/dL) 98 (75-99) mg/dL POC Glu Crepe Machine Operator ID Keisha Reid Calcium (8.4-10.2) mg/dL Total Bilirubin (0.2-1.3) mg/dL AST (17-59) U/L ALT (4-49) U/L Alkaline Phosphatase (38-126) U/L Troponin I <0.012 (0.000-0.034) ng/mL Total Protein (6.3-8.2) g/dL Albumin (3.5-5.0) g/dL Disposition Clinical Impression: Transient cerebral ischemia Disposition: ADMITTED IP TO THIS [facility] Condition: Stable Is patient prescribed a controlled substance at d/c from ED?: No Referrals: Keyana Bishop DO [Primary Care Provider] - 1-2 days Decision to Admit Reason: Admit from EC Decision Date: 01/17/20 Decision Time: 13:18
[2020-01-17 11:44] LABS: Glucose,Whole Blood 98 mg/dL (75-99)
[2020-01-17 11:51] LABS: Basophils # (A) 0.1 k/uL (0-0.2); Basophils % (A) 1 %; Eosinophils # (A) 0.2 k/uL (0-0.7); Eosinophils % (A) 2 %; HCT 46.1 % (39.0-53.0); HGB 15.3 gm/dL (13.0-17.5); Lymphocytes # (A) 1.6 k/uL (1.0-4.8); Lymphocytes % (A) 17 %; MCH 30.4 pg (25.0-35.0); MCHC 33.3 g/dL (31.0-37.0); MCV 91.4 fL (80.0-100.0); Mean Platelet Volume 6.7; Monocytes # (A) 0.9 k/uL (0-1.0); Monocytes % (A) 10 %; Neutrophils # (A) 6.5 k/uL (1.3-7.7); Neutrophils % (A) 69 %; Platelet Count 256 k/uL (150-450); RBC 5.04 m/uL (4.30-5.90); RDW 12.8 % (11.5-15.5); WBC 9.4 k/uL (3.8-10.6)
[2020-01-17 12:00] LABS: INR 0.9 (<1.2); Partial Thromboplastin Time 22.6 sec (22.0-30.0); Prothrombin Time 9.5 sec (9.0-12.0)
[2020-01-17 12:27] LABS: Albumin 3.2 g/dL (3.5-5.0); Calcium 8.8 mg/dL (8.4-10.2); Potassium 4.7 mmol/L (3.5-5.1); Total Bilirubin 0.8 mg/dL (0.2-1.3); Total Protein 5.7 g/dL (6.3-8.2)
--- NOTE | 2020-01-17 12:29 | CT ---
EXAMINATION TYPE: CT brain wo con for TPA DATE OF EXAM: 01/17/2020 HISTORY: Left sided weakness and facial droop. Neurodeficit, acute stroke suspected. CT DLP: 1088 mGycm. Automated Exposure Control for Dose Reduction was Utilized. TECHNIQUE: CT scan of the head is performed without contrast. COMPARISON: CT brain 01/03/2020 FINDINGS: There is no acute intracranial hemorrhage, midline shift, or mass effect identified. Brain parenchyma appears normal. The ventricles, sulci, and cisterns are normal in size and configuration. No extra-axial fluid collection. Bones and extracranial soft tissues are intact. The globes are gross ly symmetric. Visualized sinuses and mastoid air cells are clear. IMPRESSION: No acute intracranial hemorrhage, midline shift, or mass effect. Dr. Debora Solorio discussed findings with Dr. Jack Cheek via the phone on 01/17/2020 at 12:2 5 PM, and results were acknowledged.
--- NOTE | 2020-01-17 12:31 | XR ---
EXAMINATION TYPE: XR chest 2V DATE OF EXAM: 01/17/2020 COMPARISON: 01/09/2020 INDICATION: Altered mental status TECHNIQUE: Frontal and lateral views of the chest are obtained. FINDINGS: The heart size is enlarged. The pulmonary vasculature is normal. There is diffuse peripheral increased lung markings. This is slightly improved from comparison. Atypi lisa pneumonia should be considered. Pulmonary edema could be considered. IMPRESSION: 1. Mild improvement of a peripheral bilateral infiltrate. 2. Cardiomegaly
--- NOTE | 2020-01-17 12:37 | CT ---
EXAMINATION TYPE: CT angio head neck DATE OF EXAM: 01/17/2020 HISTORY: Left sided facial droop with weakness COMPARISON: CT brain 01/17/2020. CT chest 01/03/2020. Chest radiograph 01/09/2020. CT DLP: 1029.1 mGycm. Automated Exposure Control for Dose Reduction was Utilized. TECHNIQUE: CTA scan of the neck is performed with IV Contrast, patient injected with 65 mL of Isovue 370, axial images are obtained, coronal and sagittal reformatted images are reviewed. Three-D recons tructed images are created on an independent workstation and reviewed. Stenosis calculated utilizing NASCET criteria. FINDINGS: Carotid/Vascular Structures: Bovine branching of the aortic arch. No evidence of stenosis, occlusion, aneurysm, or dissection of the arteries of the neck. Cervical of [place]: Vertebral basilar system appears normal. Posterior cerebral vasculature is unrema rkable. Internal carotid arteries bifurcate normally into A1 and M1 segments. A2 segments are normal. The anterior communicating artery is patent. Left Posterior communicating artery is diminutive. Righ t posterior communicating artery is patent. Other: The bilateral lung apices demonstrate patchy opacities bilaterally. IMPRESSION: 1. No stenosis, occlusion, or aneurysm of the arteries of the head and neck. 2. Patchy opacities of the bilateral lung apices, redemonstrated from 01/09/2020 chest radiograph com parison, consistent with history of Covid 19 viral pneumonia.
--- NOTE | 2020-01-17 13:21 | P.HPIM ---
History of Present Illness this is a pleasant 5 years old male with past medical history of hypertension, hyperlipidemia, asthma. He was recently discharged from this hospital on 01/04- 01/09 bilateral Covid pneumonia, he was started and discharged on oxygen to go home with. Patient still has persistent mild dyspnea which is expected. However today presents because of left-sided facial droop which is resolved now with no associated weakness or numbness in the extremities however he has headache on and off. his vitals looks stable, he is saturating 95% on 2 L oxygen via nasal cannula. Labs are unremarkable including CBC, INR, BMP, liver enzymes. Troponin is negative. CTA Of the head and neck: No stenosis, occlusion, all aneurysm of the arteries of the head and neck. Patchy opacities of bilateral lung apices, consistent with history of cavid 19 viral pneumonia chest x-ray: Mild improvement of peripheral bilateral infiltrates with diffuse peripheral increased lung markings CT of the brain:no acute intracranial hemorrhage, midline shift or mass effect to the emergency room patient was given aspirin 325 mg 1 and Plavix ordered. Also pain management and given 500 mL bolus of normal saline and still continued with NS at 100 ml per hour Review of Systems CONSTITUTIONAL: No fever, no malaise, no fatigue. HEENT: No recent visual problems or hearing problems. Denied any sore throat. CARDIOVASCULAR: No orthopnea, PND, no palpitations, no syncope. PULMONARY: No shortness of breath, no cough, no hemoptysis. GASTROINTESTINAL: No diarrhea, no nausea, no vomiting, no abdominal pain. Normoactive bowel sounds. NEUROLOGICAL: No headaches, no weakness, no numbness. HEMATOLOGICAL: Denies any bleeding or petechiae. GENITOURINARY: Denies any burning micturition, frequency, or urgency. MUSCULOSKELETAL/RHEUMATOLOGICAL: Denies any joint pain, swelling, or any muscle pain. ENDOCRINE: Denies any polyuria or polydipsia. Past Medical History Past Medical History: Asthma, Hyperlipidemia, Hypertension, Pneumonia Additional Past Medical History / Comment(s): Covid + 01/05 History of Any Multi-Drug Resistant Organisms: None Reported Past Surgical History: No Surgical Hx Reported Past Psychological History: Anxiety, Depression Smoking Status: Never smoker Past Alcohol Use History: Rare Past Drug Use History: None Reported Medications and Allergies Home Medications Medication Instructions Recorded Confirmed Type Atorvastatin Calcium [Lipitor] 20 mg PO HS 05/18/18 01/03/20 History Escitalopram [Lexapro] 30 mg PO DAILY 05/18/18 01/03/20 History Losartan Potassium 100 mg PO DAILY 05/18/18 01/03/20 History Montelukast Sodium [Singulair] 10 mg PO HS 05/18/18 01/03/20 History Multivit-Min/FA/Lycopen/Lutein 1 tab PO DAILY 05/18/18 01/03/20 History [Centrum Silver Men Tablet] buPROPion XL [Wellbutrin XL] 300 mg PO DAILY 05/18/18 01/03/20 History Gabapentin [Neurontin] 300 mg PO TID 01/03/20 01/03/20 History Oxybutynin Chloride [Ditropan XL] 10 mg PO DAILY 01/03/20 01/03/20 History buPROPion XL [Wellbutrin XL] 150 mg PO DAILY 01/03/20 01/03/20 History Albuterol Inhaler [Ventolin Hfa 2 puff INHALATION RT-TID #1 inh 01/10/20 Rx Inhaler] Ascorbic Acid [Vitamin C] 500 mg PO DAILY #21 tab 01/10/20 Rx Cefuroxime Axetil [Ceftin] 500 mg PO BID 5 Days #10 tab 01/10/20 Rx Cholecalciferol [Vitamin D3 (25 1,000 unit PO DAILY #30 tab 01/10/20 Rx Mcg = 1000 Iu)] Famotidine [Pepcid] 20 mg PO DAILY #30 tab 01/10/20 Rx Zinc Sulfate [Orazinc] 220 mg PO DAILY #30 cap 01/10/20 Rx dexAMETHasone [Hexadrol] 6 mg PO DAILY 4 Days #6 tab 01/10/20 Rx Allergies Allergy/AdvReac Type Severity Reaction Status Date / Time aspirin Allergy Anaphylaxis Verified 01/17/20 11:28 ibuprofen [From Motrin] Allergy Anaphylaxis Verified 01/17/20 11:28 codeine AdvReac "dries Verified 01/17/20 11:28 system out" Physical Exam Vitals: Vital Signs Temp Pulse Resp BP Pulse Ox 01/17/20 13:02 69 18 126/76 95 01/17/20 12:13 62 18 112/74 95 01/17/20 11:58 64 18 124/69 97 01/17/20 11:43 60 18 113/79 98 01/17/20 11:25 98.0 F 66 20 113/72 98 Intake and Output 01/16/20 01/17/20 01/17/20 22:59 06:59 14:59 Other: Weight 117.934 kg GENERAL: The patient is alert and oriented x3, not in any acute distress. Well developed, well nourished. HEENT: Pupils are round and equally reacting to light. EOMI. No scleral icterus. No conjunctival pallor. Normocephalic, atraumatic. No pharyngeal erythema. No thyromegaly. CARDIOVASCULAR: S1 and S2 present. No murmurs, rubs, or gallops. PULMONARY: Chest is clear to auscultation, no wheezing or crackles. ABDOMEN: Soft, nontender, nondistended, normoactive bowel sounds. No palpable organomegaly. MUSCULOSKELETAL: No joint swelling or deformity. EXTREMITIES: No cyanosis, clubbing, or pedal edema. NEUROLOGICAL: Gross neurological examination did not reveal any focal deficits. SKIN: No rashes. No petechiae Results CBC & Chem 7: 01/17/20 11:41 01/17/20 11:41 Labs: Abnormal Lab Results - Last 24 Hours (Table) 01/17/20 Range/Units 11:41 Sodium 135 L (137-145) mmol/L BUN 21 H (9-20) mg/dL Glucose 105 H (74-99) mg/dL Total Protein 5.7 L (6.3-8.2) g/dL Albumin 3.2 L (3.5-5.0) g/dL Assessment and Plan Assessment: left facial droop, Resolved. Rule out TIA Acute bilateral Covid 19 pneumonia chronic hypoxic respiratory failure, recently started Hyperlipidemia Hypertension Chronic asthma, not in active tissue Plan: this is a pleasant 5 years old male who presents with possible TIA.continue with Plavixand follow-up recommendation by neurologist for further treatment for test. Neurology consult already called from ER his cavid pneumonia looks stable, however we will consider pulmonary consult if it gets worse Labs and medication were reviewed.. Continue same treatment. Continue with symptomatic treatment. Resume home medication. Monitor lytes and vitals. DVT and GI prophylaxis. Further recommendationsas per clinical course of the patient DVT prophylaxis: Subcutaneous Lovenox GI Prophylaxis: Ppi Prognosis is guarded
[2020-01-17] MEDS: SODIUM CHLORIDE 0.9% 1,000 ML IV SCH ×2 (13:32→22:01)
[2020-01-17] MEDS: ASPIRIN 325 MG TAB PO STA ×2 (13:32)
[2020-01-17] MEDS: ENOXAPARIN 40 MG/0.4 ML SYRINGE SQ SCH ×2 (17:33→18:46)
[2020-01-17] MEDS: ACETAMINOPHEN TAB 325 MG TAB PO PRN (18:45)
--- NOTE | 2020-01-17 19:36 | P.CNNES ---
History of Present Illness Consult date: 01/17/20 Requesting physician: Jack Cheek Reason for Consult: left facial droop that resolved. Concern for TIA History of Present Illness: This is a 59-year-old left-handed gentleman with medical history of recent diagnosis of edward virus (01/06/20) and that was discharged with oxygen, hypertension, hyperlipidemia, Asthma, peripheral neuropathy that presented to the emergency department on 01/17/2020 for a transient episode of left facial droop. He said that he woke up at 9:00 in the morningi today and he noticed his left side of the face was drooping. But did not have any other associated symptoms with this. He denies slurring of speech. He did stated that he had headache that is on both frontal region and felt like throbbing, 7-810 today and happened around left facial droop. Denies radiation to the headahce. He has been having these headache almost on daily basis since having COVID +ve for past 2 weeks. He denies photophobia, phonophobia, nausea or vomitting with these headache. He has some dizziness just upon getting upon in AM but then resolves and this has been happening since having COVID. He denies any TIA or stroke-like symptoms in the past. Denies history of migraine in past. Denies tobacco use or illicit drug use. He currently feels back to baseline. He is on Lipitor 40mg daily but no ASA. He said he cannot take ASA because of his Asthma. As a results stroke code was activated in the ED. Workup in the hospital consisted of: She'll vital signs: Blood pressure of 113/72, with a heart rate 66, respiratory of 20, temperature of 98.0 Fahrenheit oral and pulse ox of 98% room air. CT of the head was reported as no acute intracranial hemorrhage, midline shift or mass effect. I reviewed the CT and I agree with the reports. CT angiography of the head and neck was reported as no stenosis, occlusion or aneurysm of the arteries of the head and neck. It shows patchy opacities over the bilateral lung apices, redemonstrated from the 01/09/2020 chest radiograph comparison, consistent with a history of Coban 19 viral pneumonia. EKG is reported as normal sinus rhythm. Normal EKG. Patient NIH was a 0 therefore no TPA or endovascular intervention was done. In the ED the patient was given aspirin 325 once that. Review of Systems Review of system: The 12 point system was reviewed and apparent positive and negative per HPI. Past Medical History Past Medical History: Asthma, Hyperlipidemia, Hypertension, Pneumonia Additional Past Medical History / Comment(s): Covid + 01/05 History of Any Multi-Drug Resistant Organisms: None Reported Past Surgical History: No Surgical Hx Reported Past Anesthesia/Blood Transfusion Reactions: No Reported Reaction Smoking Status: Never smoker - Past Family History Mother History Unknown: Yes Father History Unknown: Yes Medications and Allergies Home Medications Medication Instructions Recorded Confirmed Type Atorvastatin Calcium [Lipitor] 20 mg PO HS 05/18/18 01/17/20 History Escitalopram [Lexapro] 30 mg PO DAILY 05/18/18 01/17/20 History Losartan Potassium 100 mg PO DAILY 05/18/18 01/17/20 History Montelukast Sodium [Singulair] 10 mg PO HS 05/18/18 01/17/20 History Multivit-Min/FA/Lycopen/Lutein 1 tab PO DAILY 05/18/18 01/17/20 History [Centrum Silver Men Tablet] buPROPion XL [Wellbutrin XL] 300 mg PO DAILY 05/18/18 01/17/20 History Gabapentin [Neurontin] 300 mg PO TID 01/03/20 01/17/20 History Oxybutynin Chloride [Ditropan XL] 10 mg PO DAILY 01/03/20 01/17/20 History buPROPion XL [Wellbutrin XL] 150 mg PO DAILY 01/03/20 01/17/20 History Albuterol Inhaler [Ventolin Hfa 2 puff INHALATION RT-TID #1 inh 01/10/20 01/17/20 Rx Inhaler] Ascorbic Acid [Vitamin C] 500 mg PO DAILY #21 tab 01/10/20 01/17/20 Rx Cholecalciferol [Vitamin D3 (25 1,000 unit PO DAILY #30 tab 01/10/20 01/17/20 Rx Mcg = 1000 Iu)] Famotidine [Pepcid] 20 mg PO DAILY #30 tab 01/10/20 01/17/20 Rx Zinc Sulfate [Orazinc] 220 mg PO DAILY #30 cap 01/10/20 01/17/20 Rx Allergies Allergy/AdvReac Type Severity Reaction Status Date / Time aspirin Allergy Anaphylaxis Verified 01/17/20 13:58 ibuprofen [From Motrin] Allergy Anaphylaxis Verified 01/17/20 13:58 codeine AdvReac "dries Verified 01/17/20 13:58 system out" Physical Examination - Vital Signs Vital Signs: Vital Signs Temp Pulse Pulse Resp BP BP Pulse Ox 01/17/20 16:00 97.0 F L 54 L 16 137/77 97 01/17/20 13:02 69 18 126/76 95 01/17/20 12:13 62 18 112/74 95 01/17/20 11:58 64 18 124/69 97 01/17/20 11:43 60 18 113/79 98 01/17/20 11:25 98.0 F 66 20 113/72 98 Intake and Output 01/17/20 01/17/20 01/17/20 06:59 14:59 22:59 Intake Total 240 Balance 240 Intake: Oral 240 Other: Voiding Method Toilet Weight 117.934 kg 117.934 kg GENERAL: The patient is lying in bed and is not in acute distress. CHEST: The heart rate is regular rate rhythm. No murmurs to auscultation. LUNG: Clear to auscultation bilaterally no wheezing noted throughout. Not labored breathing. ABDOMEN/GI: Bowel sounds present in all 4 quadrants. No tenderness to palpation throughout. NEUROLOGICAL: Higher mental function: The patient is awake, alert, oriented to self, place and time. Patient is following commands. No aphasia and no neglect. Cranial nerves: The pupils are round, equal and reactive to light and accommodation. Visual paredes are full to confrontation throughout. Extraocular movement is intact no nystagmus is noted. Facial sensation is normal to touch throughout. The facial strength is normal throughout. Hearing is normal bilaterally to hand rub. Tongue is midline and moved [id number] without any difficulty. No dysarthria is noted. Shoulder shrug is normal bilaterally. Motor: Gait is normal with normal arm swings. The strength is 5 over 5 throughout. Normal tone and bulk. Cerebellum: Normal finger to nose heel to chin bilaterally. Sensation: Sensation is normal to touch throughout. Reflexes (right/left): 2+ Plantars are downgoing bilaterally. Results AST of 23, ALTs 37. Serum glucose is 105. - Laboratory Findings CBC and BMP: 01/17/20 11:41 01/17/20 11:41 Abnormal Lab Findings: Abnormal Labs 01/17/20 11:41 Sodium 135 L BUN 21 H Glucose 105 H Total Protein 5.7 L Albumin 3.2 L Assessment and Plan Assessment: This is a 59-year-old gentleman who recently had Covid in the last 2 weeks that presented to the emergency department because of transient left facial droop. Patient stated that he's been having headache over the bilateral frontal region lasting 1 hour and mild dizziness ever since he's been diagnosed with Covid virus. Transient episode of left facial droop: Possibly TIA vs Some Migrainous feature leading to complicated migraine (no hx of Migraine) but has been having headahces since COVID +ve for 2 weeks [place] since being COVID +ve for 2 weeks (No hx of Migraine) COVID +ve in last 2 weeks Hx of Peripheral neuropathy Hx of Asthma Hx of Lipidemia Plan: Currently the patient is on Plavix 75 daily and Lipitor 40 mg daily. Patient cannot take aspirin therefore will continue with this medication for secondary stroke prophylaxis. I will order MRI of the brain with and without to rule out stroke and any intracranial process. Ordered 2-D echo Lipid panel is ordered and is pending. Occupation the physical therapy is consulted. Regarding the headache I ordered Toradol 15 mg once. The plan was discussed with the patient. Thank you for the consultation. Dr. Jones will be on service for Neurology on 01/17 and 01/19/2020. Boubacar Choi M.D. Neuro-hospitalist Time with Patient: Greater than 30
[2020-01-17] MEDS ORDERED: KETOROLAC 15 MG/ML 1 ML VIAL IM STA (19:38)
[2020-01-17] MEDS: GABAPENTIN 300 MG CAP PO SCH (21:20)
[2020-01-17] MEDS: ATORVASTATIN 40 MG TAB PO SCH (21:20)
[2020-01-17] MEDS: MONTELUKAST 10 MG TAB PO SCH (21:20)
[2020-01-17] MEDS ORDERED: HYDROcodone/APAP 5-325MG 1 EACH TAB PO STA (21:49)
[2020-01-18] MEDS ORDERED: HEPARIN SODIUM,PORCINE 5,000 UNIT/ML 1 ML VIAL SQ SCH
[2020-01-18 08:04] LABS: Basophils % (A) 0 %; Eosinophils # (A) 0.1 k/uL (0-0.7); Eosinophils % (A) 2 %; HCT 43.8 % (39.0-53.0); HGB 13.7 gm/dL (13.0-17.5); Lymphocytes # (A) 1.7 k/uL (1.0-4.8); Lymphocytes % (A) 27 %; MCH 29.3 pg (25.0-35.0); MCHC 31.3 g/dL (31.0-37.0); MCV 93.7 fL (80.0-100.0); Mean Platelet Volume 6.9; Monocytes # (A) 0.5 k/uL (0-1.0); Monocytes % (A) 8 %; Neutrophils # (A) 3.7 k/uL (1.3-7.7); Neutrophils % (A) 60 %; Platelet Count 216 k/uL (150-450); RBC 4.68 m/uL (4.30-5.90); RDW 13.2 % (11.5-15.5); WBC 6.1 k/uL (3.8-10.6)
[2020-01-18] MEDS: SODIUM CHLORIDE 0.9% 1,000 ML IV SCH ×2 (08:30→18:36)
[2020-01-18] MEDS: ESCITALOPRAM 10 MG TAB PO SCH (08:31)
[2020-01-18] MEDS: CLOPIDOGREL 75 MG TAB PO SCH (08:31)
[2020-01-18] MEDS: ASCORBIC ACID 500 MG TAB PO SCH (08:31)
[2020-01-18] MEDS: ZINC SULFATE 220 MG CAP PO SCH (08:31)
[2020-01-18] MEDS: ENOXAPARIN 40 MG/0.4 ML SYRINGE SQ SCH (08:31)
[2020-01-18] MEDS: buPROPion XL 150 MG TAB.ER.24H PO SCH (08:32)
[2020-01-18] MEDS: OXYBUTYNIN 10 MG TAB.ER.24 PO SCH (08:32)
[2020-01-18] MEDS: GABAPENTIN 300 MG CAP PO SCH ×3 (08:32→20:56)
[2020-01-18] MEDS: LOSARTAN 50 MG TAB PO SCH (08:32)
[2020-01-18] MEDS: CHOLECALCIFEROL 1,000 UNIT TAB PO SCH (08:32)
[2020-01-18] MEDS: ACETAMINOPHEN TAB 325 MG TAB PO PRN ×2 (08:35→20:56)
[2020-01-18 08:36] LABS: Calcium 8.2 mg/dL (8.4-10.2); Potassium 4.6 mmol/L (3.5-5.1)
[2020-01-18] MEDS ORDERED: buPROPion XL 300 MG TAB.ER.24H PO SCH (09:00)
[2020-01-18] MEDS ORDERED: FAMOTIDINE 20 MG TAB PO SCH (09:00)
[2020-01-18] MEDS ORDERED: PANTOPRAZOLE 40 MG/10 ML VIAL IVP SCH (09:00)
--- NOTE | 2020-01-18 14:23 | MR ---
EXAMINATION TYPE: MR brain wo/w con DATE OF EXAM: 01/18/2020 COMPARISON: None HISTORY: Transient left facial and headache since COVID+ CONTRAST: Standard multiplanar, multisequence MRI departmental protocol utilizing 12 mL intravenous Gadavist ga dolinium contrast. There is mild cerebral cortical atrophy. There is no mass effect nor midline shift. There is no sign of intracranial hemorrhage. Diffusion images show no evidence of acute infarct. There is mild increas ed signal on the FLAIR images in the white matter adjacent to the occipital horn right lateral ventri lucas. The corpus callosum is intact. Brainstem is intact. Cerebellum appears intact. The contrast images show normal enhancement of the venous sinuses. There is no pathologic enhancement . Sella turcica appears normal. IMPRESSION: Mild white matter changes of uncertain and doubtful significance in the occipital horn right lateral ventricle. No evidence of cerebral infarct.
--- NOTE | 2020-01-18 15:59 | ECHOF ---
Referral Reason:stroke MEASUREMENTS -------- HEIGHT: 175.3 cm WEIGHT: 115.7 kg BP: RVIDd: 2.6 cm (< 3.3) IVSd: 1.3 cm (0.6 - 1.1) LVIDd: 4.7 cm (3.9 - 5.3) LVPWd: 1.4 cm (0.6 - 1.1) IVSs: 2.0 cm LVIDs: 2.8 cm LVPWs: 2.2 cm LAESV Index (A-L): 24.98 ml/m Ao Diam: 3.3 cm (2.0 - 3.7) AV Cusp: 2.2 cm (1.5 - 2.6) LA Diam: 3.8 cm (2.7 - 3.8) MV EXCURSION: 20.130 mm (> 18.000) MV EF SLOPE: 78 mm/s (70 - 150) EPSS: 1.2 cm MV E Anam: 1.02 m/s MV DecT: 238 ms MV A Anam: 0.71 m/s MV E/A Ratio: 1.43 RAP: 5.00 mmHg RVSP: 14.10 mmHg FINDINGS -------- This was a technically good study. The left ventricular size is normal. There is moderate concentric left ventricular hypertrophy. O verall left ventricular systolic function is normal with, an EF between 55 - 60 %. Normal LAP Grade 1 Diastolic Dysfunction. The right ventricle is normal in size. The left atrial size is normal. Normal LA size by volume 22+/-6 ml/m2. The right atrial size is normal. The aortic valve is trileaflet and appears structurally normal. The mitral valve is normal. The mitral valve leaflets are mildly thickened. There is trace mitral regurgitation. The tricuspid valve appears structurally normal. Trace tricuspid regurgitation present. Right jaent tricular systolic pressure is normal at < 35 mmHg. There is no pulmonic regurgitation present. The aortic root size is normal. Normal inferior vena cava with normal inspiratory collapse consistent with estimated right atrial pre ssure of 5 mmHg. There is no pericardial effusion. CONCLUSIONS -------- 1. The left ventricular size is normal. 2. There is moderate concentric left ventricular hypertrophy. 3. Overall left ventricular systolic function is normal with, an EF between 55 - 60 %. 4. Normal LAP Grade 1 Diastolic Dysfunction. 5. The mitral valve leaflets are mildly thickened. 6. There is trace mitral regurgitation. 7. Trace tricuspid regurgitation present. 8. There is no pericardial effusion. SNUBBER: Dora Williamson RDCS
--- NOTE | 2020-01-18 16:04 | P.PN ---
Subjective Progress Note Date: 01/18/20 The patient is seen in neurologic follow-up on January 18, 2020 via teleneurology. Patient reports continuation of his headache, however it has improved. Is left- sided facial droop has resolved. He denies any new neurologic symptoms. He does also continued have dizziness when he is up walking or standing. The patient reports having a headache since his diagnosis of COVID, proximally 2 weeks ago. In addition, his dizziness and shortness of breath have been present since that diagnosis. The patient denies a history of headaches Objective - Vital Signs Vital signs: Vital Signs Temp 97.2 F L 01/18/20 11:50 Pulse 66 01/18/20 11:50 Resp 18 01/18/20 11:50 BP 143/76 01/18/20 11:50 Pulse Ox 98 01/18/20 11:50 Intake & Output 01/17/20 01/18/20 01/18/20 18:59 06:59 18:59 Intake Total 240 1700 Balance 240 1700 Weight 117.934 kg 116 kg Intake: Intake, IV Titration 800 Amount Sodium Chloride 0.9% 1, 800 000 ml @ 100 mls/hr IV . Q10H [facility] Rx#:[id number] Oral 240 900 Other: Voiding Method Toilet Toilet Toilet # Voids 1 4 - Exam Gen.: The patient is seated in the bedside chair. He is wearing nasal cannula oxygen. He is in no acute distress. HEENT: Head is atraumatic, normocephalic. Fundus not visualized. There is no scleral icterus. Mucous membranes are moist. Neurological examination Mental status: Patient is awake, alert and oriented 3. His speech is clear. There is no dysarthria or aphasia Cranial nerves: 2-12 intact as tested. There is no facial asymmetry. Motor: Strength is 5/5 MRI of brain: There is no evidence of acute hemorrhage or ischemia - Labs CBC & Chem 7: 01/18/20 07:13 01/18/20 07:13 Labs: Abnormal Lab Results - Last 24 Hours (Table) 01/18/20 Range/Units 07:13 Sodium 135 L (137-145) mmol/L Calcium 8.2 L (8.4-10.2) mg/dL Triglycerides 235 H (<150) mg/dL HDL Cholesterol 34 L (40-60) mg/dL Assessment and Plan Assessment: 1. Cephalgia and transient left facial droop-a possibly be secondary to transient ischemic attack versus complicated migraine versus related to COVID infection 2. MRI of brain is negative for acute infarct Plan: 1. Continue Plavix for stroke prevention 2. Continue high-dose statin 3. Heart healthy diet 4. Exercise and weight loss Time with Patient: Less than 30 (spent 25 minutes with patient via teleneurology)
[2020-01-18] MEDS: ATORVASTATIN 40 MG TAB PO SCH (20:56)
[2020-01-18] MEDS: MONTELUKAST 10 MG TAB PO SCH (20:56)
[2020-01-18] MEDS: ALBUTEROL HFA INHALER INHALATION PRN (21:56)
--- NOTE | 2020-01-19 00:25 | P.PN ---
Subjective Progress Note Date: 01/18/20 Principal diagnosis: TIA Mr. Sidhu is a 59-year-old male with a past medical history of hypertension, hyperlipidemia, asthma who has been recently discharged from the hospital from 01/04 to 01/09 for bilateral Covid pneumonia coming to the hospital with left- sided facial droop. Patient symptoms resolved completely and work-up for TIA ongoing. So far work-up showed -CT Anju of the brain no stenosis, occlusion or aneurysm of arteries of the head and neck, patchy opacities of bilateral lung apices. Echocardiogram showing ejection fraction of 55 to 60% with grade 1 diastolic dysfunction, mitral valve leaflets are mildly with mild mitral regurgitation. On 01/19/2020 -patient is sitting in his bed and having his dinner. He denies having any active complaints. Patient denies any facial weakness, speech abnormalities or weakness of his extremities. He complains of mild dizziness and difficulty in breathing since the diagnosis of Covid. On reviewing the [facility] patient has been afebrile for the past 24 hours, heart rate in the 60s, respiratory rate 18, blood pressure 115/55, saturating at 95% on 2 L of nasal cannula. Reviewing his labs white count of 6.1, hemoglobin 13.7, sodium 135, potassium 4.6, BUN 18, creatinine 1.14. Active Medications Acetaminophen (Acetaminophen Tab 325 Mg Tab) 650 mg PO Q6HR PRN PRN Reason: Fever and/ or Pain Last Admin: 01/18/20 20:56 Dose: 650 mg Documented by: Albuterol Sulfate (Albuterol Hfa Inhaler) 2 puff INHALATION RT-Q4H PRN PRN Reason: Shortness Of Breath Or Wheezing Last Admin: 01/18/20 21:56 Dose: 2 puff Documented by: Ascorbic Acid (Ascorbic Acid 500 Mg Tab) 500 mg PO DAILY [facility] Last Admin: 01/18/20 08:31 Dose: 500 mg Documented by: Atorvastatin Calcium (Atorvastatin 40 Mg Tab) 40 mg PO HS [facility] Last Admin: 01/18/20 20:56 Dose: 40 mg Documented by: Bupropion HCl (Bupropion Xl 150 Mg Tab.Er.24h) 450 mg PO DAILY [facility] Last Admin: 01/18/20 08:32 Dose: 450 mg Documented by: Cholecalciferol (Cholecalciferol 1,000 Unit Tab) 1,000 unit PO DAILY [facility] Last Admin: 01/18/20 08:32 Dose: 1,000 unit Documented by: Clopidogrel Bisulfate (Clopidogrel 75 Mg Tab) 75 mg PO DAILY [facility] Last Admin: 01/18/20 08:31 Dose: 75 mg Documented by: Enoxaparin Sodium (Enoxaparin 40 Mg/0.4 Ml Syringe) 40 mg SQ DAILY [facility] Last Admin: 01/18/20 08:31 Dose: 40 mg Documented by: Escitalopram Oxalate (Escitalopram 10 Mg Tab) 30 mg PO DAILY [facility] Last Admin: 01/18/20 08:31 Dose: 30 mg Documented by: Gabapentin (Gabapentin 300 Mg Cap) 300 mg PO TID [facility] Last Admin: 01/18/20 20:56 Dose: 300 mg Documented by: Sodium Chloride (Saline 0.9%) 1,000 mls @ 100 mls/hr IV .Q10H [facility] Last Admin: 01/18/20 18:36 Dose: 100 mls/hr Documented by: Losartan Potassium (Losartan 50 Mg Tab) 100 mg PO DAILY [facility] Last Admin: 01/18/20 08:32 Dose: 100 mg Documented by: Montelukast Sodium (Montelukast 10 Mg Tab) 10 mg PO HS [facility] Last Admin: 01/18/20 20:56 Dose: 10 mg Documented by: Oxybutynin Chloride (Oxybutynin 10 Mg Tab.Er.24) 10 mg PO DAILY [facility] Last Admin: 01/18/20 08:32 Dose: 10 mg Documented by: Pantoprazole Sodium (Pantoprazole 40 Mg Tablet) 40 mg PO DAILY [facility] Zinc Sulfate (Zinc Sulfate 220 Mg Cap) 220 mg PO DAILY [facility] Last Admin: 01/18/20 08:31 Dose: 220 mg Documented by: Objective - Vital Signs Vital signs: Vital Signs Temp 98.2 F 01/18/20 08:15 Pulse 65 01/18/20 08:15 Resp 18 01/18/20 08:15 BP 115/56 01/18/20 08:15 Pulse Ox 97 01/18/20 08:15 Intake & Output 01/17/20 01/18/20 01/18/20 18:59 06:59 18:59 Intake Total 240 180 Balance 240 180 Weight 117.934 kg 116 kg Intake: Oral 240 180 Other: Voiding Method Toilet Toilet Toilet # Voids 1 - Labs CBC & Chem 7: 01/18/20 07:13 01/18/20 07:13 Labs: Abnormal Lab Results - Last 24 Hours (Table) 01/18/20 Range/Units 07:13 Sodium 135 L (137-145) mmol/L Calcium 8.2 L (8.4-10.2) mg/dL Triglycerides 235 H (<150) mg/dL HDL Cholesterol 34 L (40-60) mg/dL Assessment and Plan Assessment: ASSESSMENT Left facial droop, resolved probably TIA - work up ongoing Acute bilateral Covid 19 pneumonia Chronic hypoxic respiratory failure due to COVID Hyperlipidemia Hypertension Chronic asthma Obesity BMI 38 PLAN: Patient had Covid infection recently, still requiring oxygen of 2 L to maintain sats above 95. Work-up for TIA ongoing, neurology following the patient closely. Continue with Plavix and statin. Lovenox for DVT prophylaxis. Protonix for GI prophylaxis. Overall prognosis is guarded. Further recommendations depending on the progress of the patient.
[2020-01-19] MEDS: SODIUM CHLORIDE 0.9% 1,000 ML IV SCH ×2 (05:55→18:02)
[2020-01-19 08:07] LABS: Basophils % (A) 1 %; Eosinophils # (A) 0.1 k/uL (0-0.7); Eosinophils % (A) 2 %; HCT 43.5 % (39.0-53.0); HGB 13.5 gm/dL (13.0-17.5); Lymphocytes # (A) 1.5 k/uL (1.0-4.8); Lymphocytes % (A) 22 %; MCH 29.2 pg (25.0-35.0); MCHC 31.1 g/dL (31.0-37.0); MCV 93.9 fL (80.0-100.0); Mean Platelet Volume 6.7; Monocytes # (A) 0.4 k/uL (0-1.0); Monocytes % (A) 6 %; Neutrophils # (A) 4.6 k/uL (1.3-7.7); Neutrophils % (A) 68 %; Platelet Count 198 k/uL (150-450); RBC 4.64 m/uL (4.30-5.90); RDW 13.1 % (11.5-15.5); WBC 6.8 k/uL (3.8-10.6)
[2020-01-19] MEDS: ENOXAPARIN 40 MG/0.4 ML SYRINGE SQ SCH (08:27)
[2020-01-19] MEDS: ASCORBIC ACID 500 MG TAB PO SCH (08:27)
[2020-01-19] MEDS: ESCITALOPRAM 10 MG TAB PO SCH (08:27)
[2020-01-19] MEDS: PANTOPRAZOLE 40 MG TABLET PO SCH (08:27)
[2020-01-19] MEDS: GABAPENTIN 300 MG CAP PO SCH ×3 (08:27→23:16)
[2020-01-19] MEDS: CHOLECALCIFEROL 1,000 UNIT TAB PO SCH (08:28)
[2020-01-19] MEDS: buPROPion XL 150 MG TAB.ER.24H PO SCH (08:28)
[2020-01-19] MEDS: CLOPIDOGREL 75 MG TAB PO SCH (08:28)
[2020-01-19] MEDS: LOSARTAN 50 MG TAB PO SCH (08:28)
[2020-01-19 08:29] LABS: Calcium 8.1 mg/dL (8.4-10.2); Potassium 4.6 mmol/L (3.5-5.1)
[2020-01-19] MEDS: ZINC SULFATE 220 MG CAP PO SCH (08:29)
[2020-01-19] MEDS: OXYBUTYNIN 10 MG TAB.ER.24 PO SCH (08:29)
[2020-01-19] MEDS: ALBUTEROL HFA INHALER INHALATION PRN (08:54)
[2020-01-19] MEDS: MONTELUKAST 10 MG TAB PO SCH (19:51)
[2020-01-19] MEDS: ATORVASTATIN 40 MG TAB PO SCH (19:51)
--- NOTE | 2020-01-20 00:21 | P.PN ---
Subjective Progress Note Date: 01/19/20 Principal diagnosis: TIA Mr. Sidhu is a 59-year-old male with a past medical history of hypertension, hyperlipidemia, asthma who has been recently discharged from the hospital from 01/04 to 01/09 for bilateral Covid pneumonia coming to the hospital with left- sided facial droop. Patient symptoms resolved completely and work-up for TIA ongoing. So far work-up showed -CT Anju of the brain no stenosis, occlusion or aneurysm of arteries of the head and neck, patchy opacities of bilateral lung apices. Echocardiogram showing ejection fraction of 55 to 60% with grade 1 diastolic dysfunction, mitral valve leaflets are mildly with mild mitral regurgitation. On 01/18/2020 -patient is sitting in his bed and having his dinner. He denies having any active complaints. Patient denies any facial weakness, speech abnormalities or weakness of his extremities. He complains of mild dizziness and difficulty in breathing since the diagnosis of Covid. On reviewing the v itals patient has been afebrile for the past 24 hours, heart rate in the 60s, respiratory rate 18, blood pressure 115/55, saturating at 95% on 2 L of nasal cannula. Reviewing his labs white count of 6.1, hemoglobin 13.7, sodium 135, potassium 4.6, BUN 18, creatinine 1.14. On 01/19/2020 -patient is sitting up in a chair by the bed appears to be no acute distress. Patient states that his difficulty in breathing is still the same. He also states that his headache has been the same since having COVID-19. He denies any worsening of his symptoms. Patient states that his dizziness has improved. On reviewing the vitals, temperature of 98.5, heart rate 65, respiratory 20, blood pressure 124/65, saturating at 95% on 2 L of nasal cannula. Patient's labs from this morning showing white count of 6.8, hemoglobin 13.5, platelets 198. Sodium 138, potassium 4.6, chloride 106, bicarb 30. BUN 15, creatinine 1.18. Active Medications Acetaminophen (Acetaminophen Tab 325 Mg Tab) 650 mg PO Q6HR PRN PRN Reason: Fever and/ or Pain Last Admin: 01/18/20 20:56 Dose: 650 mg Documented by: Albuterol Sulfate (Albuterol Hfa Inhaler) 2 puff INHALATION RT-Q4H PRN PRN Reason: Shortness Of Breath Or Wheezing Last Admin: 01/19/20 08:54 Dose: 2 puff Documented by: Ascorbic Acid (Ascorbic Acid 500 Mg Tab) 500 mg PO DAILY [facility] Last Admin: 01/19/20 08:27 Dose: 500 mg Documented by: Atorvastatin Calcium (Atorvastatin 40 Mg Tab) 40 mg PO HS [facility] Last Admin: 01/19/20 19:51 Dose: 40 mg Documented by: Bupropion HCl (Bupropion Xl 150 Mg Tab.Er.24h) 450 mg PO DAILY [facility] Last Admin: 01/19/20 08:28 Dose: 450 mg Documented by: Cholecalciferol (Cholecalciferol 1,000 Unit Tab) 1,000 unit PO DAILY [facility] Last Admin: 01/19/20 08:28 Dose: 1,000 unit Documented by: Clopidogrel Bisulfate (Clopidogrel 75 Mg Tab) 75 mg PO DAILY [facility] Last Admin: 01/19/20 08:28 Dose: 75 mg Documented by: Enoxaparin Sodium (Enoxaparin 40 Mg/0.4 Ml Syringe) 40 mg SQ DAILY [facility] Last Admin: 01/19/20 08:27 Dose: 40 mg Documented by: Escitalopram Oxalate (Escitalopram 10 Mg Tab) 30 mg PO DAILY [facility] Last Admin: 01/19/20 08:27 Dose: 30 mg Documented by: Gabapentin (Gabapentin 300 Mg Cap) 300 mg PO TID [facility] Last Admin: 01/19/20 23:16 Dose: 300 mg Documented by: Sodium Chloride (Saline 0.9%) 1,000 mls @ 100 mls/hr IV .Q10H [facility] Last Admin: 01/19/20 18:02 Dose: Not Given Documented by: Losartan Potassium (Losartan 50 Mg Tab) 100 mg PO DAILY [facility] Last Admin: 01/19/20 08:28 Dose: 100 mg Documented by: Montelukast Sodium (Montelukast 10 Mg Tab) 10 mg PO HS [facility] Last Admin: 01/19/20 19:51 Dose: 10 mg Documented by: Oxybutynin Chloride (Oxybutynin 10 Mg Tab.Er.24) 10 mg PO DAILY [facility] Last Admin: 01/19/20 08:29 Dose: 10 mg Documented by: Pantoprazole Sodium (Pantoprazole 40 Mg Tablet) 40 mg PO DAILY [facility] Last Admin: 01/19/20 08:27 Dose: 40 mg Documented by: Zinc Sulfate (Zinc Sulfate 220 Mg Cap) 220 mg PO DAILY [facility] Last Admin: 01/19/20 08:29 Dose: 220 mg Documented by: Objective - Vital Signs Vital signs: Vital Signs Temp 98.5 F 01/19/20 07:00 Pulse 65 01/19/20 07:00 Resp 20 01/19/20 07:00 BP 125/65 01/19/20 07:00 Pulse Ox 97 01/19/20 07:00 Intake & Output 01/18/20 01/19/20 01/19/20 18:59 06:59 18:59 Intake Total 1700 600 Balance 1700 600 Weight 121 kg Intake: Intake, IV Titration 800 Amount Sodium Chloride 0.9% 1, 800 000 ml @ 100 mls/hr IV . Q10H [facility] Rx#:[id number] Oral 900 600 Other: Voiding Method Toilet Toilet # Voids 4 1 - Exam GENERAL: The patient is alert and oriented x3, not in any acute distress. Well developed, well nourished. HEENT: Pupils are round and equally reacting to light. EOMI. No scleral icterus. No conjunctival pallor. CARDIOVASCULAR: S1 and S2 present. No murmurs, rubs, or gallops. PULMONARY: Chest is clear to auscultation, no wheezing or crackles. ABDOMEN: Soft, nontender, nondistended, normoactive bowel sounds. No palpable organomegaly. MUSCULOSKELETAL: No joint swelling or deformity. EXTREMITIES: No cyanosis, clubbing, or pedal edema. NEUROLOGICAL: Gross neurological examination did not reveal any focal deficits. SKIN: No rashes. No petechiae - Labs CBC & Chem 7: 01/19/20 07:48 01/19/20 07:48 Labs: Abnormal Lab Results - Last 24 Hours (Table) 01/19/20 Range/Units 07:48 Glucose 127 H (74-99) mg/dL Calcium 8.1 L (8.4-10.2) mg/dL Assessment and Plan Assessment: ASSESSMENT Left facial droop, resolved probably TIA - work up ongoing Acute bilateral Covid 19 pneumonia Chronic hypoxic respiratory failure due to COVID Hyperlipidemia Hypertension Chronic asthma Obesity BMI 38 PLAN: Patient had Covid infection recently, still requiring oxygen of 2 L to maintain sats above 95. Work-up for TIA ongoing, neurology following the patient closely. Continue with Plavix and statin. Lovenox for DVT prophylaxis. Protonix for GI prophylaxis. Overall prognosis is guarded. Further recommendations depending on the progress of the patient. Anticipate discharge in 24-48 hrs.
[2020-01-20] MEDS: SODIUM CHLORIDE 0.9% 1,000 ML IV SCH ×2 (06:19→14:31)
[2020-01-20] MEDS: ALBUTEROL HFA INHALER INHALATION PRN ×3 (08:11→16:23)
[2020-01-20] MEDS: ENOXAPARIN 40 MG/0.4 ML SYRINGE SQ SCH (09:30)
[2020-01-20] MEDS: CHOLECALCIFEROL 1,000 UNIT TAB PO SCH (09:31)
[2020-01-20] MEDS: ESCITALOPRAM 10 MG TAB PO SCH (09:31)
[2020-01-20] MEDS: ASCORBIC ACID 500 MG TAB PO SCH (09:31)
[2020-01-20] MEDS: buPROPion XL 150 MG TAB.ER.24H PO SCH (09:31)
[2020-01-20] MEDS: CLOPIDOGREL 75 MG TAB PO SCH (09:31)
[2020-01-20] MEDS: ZINC SULFATE 220 MG CAP PO SCH (09:32)
[2020-01-20] MEDS: PANTOPRAZOLE 40 MG TABLET PO SCH (09:32)
[2020-01-20] MEDS: OXYBUTYNIN 10 MG TAB.ER.24 PO SCH (09:32)
[2020-01-20] MEDS: ACETAMINOPHEN TAB 325 MG TAB PO PRN ×2 (09:32→15:43)
[2020-01-20] MEDS: GABAPENTIN 300 MG CAP PO SCH ×2 (09:32→15:43)
[2020-01-20] MEDS: LOSARTAN 50 MG TAB PO SCH (09:32)
[2020-01-20] MEDS ORDERED: HYDROcodone/APAP 5-325MG 1 EACH TAB PO STA (12:30)
--- NOTE | 2020-01-20 16:25 | P.DS ---
Providers Date of admission: 01/17/20 13:16 Expected date of discharge: 01/20/20 Attending physician: Davonte Saldaña MD Consults: 01/17/20 13:15 Consult Physician Routine Consulting Provider: Boubacar Choi Consult Reason/Comments: TIA Do you want consulting provider notified?: Yes Primary care physician: Keyana Bishop, DO Hospital Course: Mr. Sidhu is a 59-year-old male with a past medical history of hypertension, hyperlipidemia, asthma who has been recently discharged from the hospital from 01/04 to 01/09 for bilateral Covid pneumonia coming to the hospital with left- sided facial droop. Hospital course - Patient symptoms resolved completely and work-up for TIA intiated and Neurologywas consulted. Work-up showed -CT Angio of the brain no stenosis, occlusion or aneurysm of arteries of the head and neck, Echocardiogram showing ejection fraction of 55 to 60% with grade 1 diastolic dysfunction, mitral valve leaflets are mildly with mild mitral regurgitation. MRI of the brain with and without contrast showed mild white matter changes of uncertain and doubtful significance in the occipital horn and right lateral ventricle. No evidence of cerebral infarct. Chest X ray showed - patchy opacities of bilateral lung apices. Patient continued to have headaches, has been receiving Tylenol on when necessary basis with some relief. He has been having headaches and difficulty in breathing since being diagnosed with Covid. Patient states that he is back to his baseline and wants to go home. He has been cleared by neurology to be d ischarged on Plavix and statin. Patient is ALLERGIC to aspirin. Vital Signs - 8 hr 01/20/20 01/20/20 09:25 12:00 Temperature 97.9 F 97.8 F Pulse Rate 65 Pulse Rate [ 67 Pulse Oximetery ] Respiratory 16 16 Rate Blood Pressure 165/89 Blood Pressure 142/80 [Right Arm] O2 Sat by Pulse 94 L 97 Oximetry GENERAL: The patient is alert and oriented x3, not in any acute distress. Well developed, well nourished. HEENT: Pupils are round and equally reacting to light. EOMI. No scleral icterus. No conjunctival pallor. CARDIOVASCULAR: S1 and S2 present. No murmurs, rubs, or gallops. PULMONARY: Chest is clear to auscultation, no wheezing or crackles. ABDOMEN: Soft, nontender, nondistended, normoactive bowel sounds. No palpable organomegaly. MUSCULOSKELETAL: No joint swelling or deformity. EXTREMITIES: No cyanosis, clubbing, or pedal edema. NEUROLOGICAL: Gross neurological examination did not reveal any focal deficits. SKIN: No rashes. No petechiae DISCHARGE DIAGNOSIS Left facial droop, resolved probably TIA Acute bilateral Covid 19 pneumonia Chronic hypoxic respiratory failure due to COVID Chronic headcahes since COVID infection Hyperlipidemia Hypertension Chronic asthma Obesity BMI 38 Follow-up: Patient is advised to follow up with primary care physician in 2-3 days. Also advised follow-up with neurology. Patient is being discharged home. Patient Condition at Discharge: Stable Plan - Discharge Summary Discharge Rx Participant: No New Discharge Prescriptions: New Clopidogrel [Plavix] 75 mg PO DAILY 30 Days #30 tab Continue Montelukast Sodium [Singulair] 10 mg PO HS Escitalopram [Lexapro] 30 mg PO DAILY Atorvastatin Calcium [Lipitor] 20 mg PO HS buPROPion XL [Wellbutrin XL] 300 mg PO DAILY Multivit-Min/FA/Lycopen/Lutein [Centrum Silver Men Tablet] 1 tab PO DAILY Losartan Potassium 100 mg PO DAILY buPROPion XL [Wellbutrin XL] 150 mg PO DAILY Gabapentin [Neurontin] 300 mg PO TID Oxybutynin Chloride [Ditropan XL] 10 mg PO DAILY Zinc Sulfate [Orazinc] 220 mg PO DAILY #30 cap Famotidine [Pepcid] 20 mg PO DAILY #30 tab Albuterol Inhaler [Ventolin Hfa Inhaler] 2 puff INHALATION RT-TID #1 inh Ascorbic Acid [Vitamin C] 500 mg PO DAILY #21 tab Cholecalciferol [Vitamin D3 (25 Mcg = 1000 Iu)] 1,000 unit PO DAILY #30 tab Discharge Medication List Atorvastatin Calcium [Lipitor] 20 mg PO HS 05/18/18 [History] Escitalopram [Lexapro] 30 mg PO DAILY 05/18/18 [History] Losartan Potassium 100 mg PO DAILY 05/18/18 [History] Montelukast Sodium [Singulair] 10 mg PO HS 05/18/18 [History] Multivit-Min/FA/Lycopen/Lutein [Centrum Silver Men Tablet] 1 tab PO DAILY 05/18/18 [History] buPROPion XL [Wellbutrin XL] 300 mg PO DAILY 05/18/18 [History] Gabapentin [Neurontin] 300 mg PO TID 01/03/20 [History] Oxybutynin Chloride [Ditropan XL] 10 mg PO DAILY 01/03/20 [History] buPROPion XL [Wellbutrin XL] 150 mg PO DAILY 01/03/20 [History] Albuterol Inhaler [Ventolin Hfa Inhaler] 2 puff INHALATION RT-TID #1 inh 01/10/20 [Rx] Ascorbic Acid [Vitamin C] 500 mg PO DAILY #21 tab 01/10/20 [Rx] Cholecalciferol [Vitamin D3 (25 Mcg = 1000 Iu)] 1,000 unit PO DAILY #30 tab 01/10/20 [Rx] Famotidine [Pepcid] 20 mg PO DAILY #30 tab 01/10/20 [Rx] Zinc Sulfate [Orazinc] 220 mg PO DAILY #30 cap 01/10/20 [Rx] Clopidogrel [Plavix] 75 mg PO DAILY 30 Days #30 tab 01/20/20 [Rx] Follow up Appointment(s)/Referral(s): Keyana Bishop DO [Primary Care Provider] - 1-2 days Discharge Disposition: HOME SELF-CARE
[2020-01-20 16:52] VITALS: BP 154/81; PULSE 58; RESP 18; TEMP 97.7
--- NOTE | 2020-01-20 17:39 | P.PN ---
Subjective Progress Note Date: 01/20/20 Patient was initially seen by Dr. Boubacar Choi on 01/17/2020. Please refer to his note for details. Patient recently has positive COVID testing on 01/03/2020. Patient came to the hospital because of left facial droop, dizziness and headache. Patient at present has no symptoms. Objective - Vital Signs Vital signs: Vital Signs Temp 97.7 F 01/20/20 16:00 Pulse 58 L 01/20/20 16:00 Resp 18 01/20/20 16:00 BP 154/81 01/20/20 16:00 Pulse Ox 95 01/20/20 16:00 Intake & Output 01/19/20 01/20/20 01/20/20 18:59 06:59 18:59 Intake Total 718 720 Balance 718 720 Weight 121 kg Intake: Oral 718 720 Other: Voiding Method Toilet # Voids 4 1 2 # Bowel Movements 1 - Exam Patient's mental status, speech and language functions are normal. Gait is normal. Detailed testing deferred. - Labs CBC & Chem 7: 01/19/20 07:48 01/19/20 07:48 Assessment and Plan Assessment: * Cephalgia and transient left facial droop, possible TIA versus complicated migraine versus related to COVID infection. * Recent Covid infection. Plan: * Patient underwent MRI of the brain, which is normal. * CTA of head and neck negative. * 2-D echo showed ejection fraction 55-60%, moderate concentric LVH. * Lipid panel with cholesterol 143, LDL 62, HDL 34 and triglycerides 235. * Continue Plavix 75 mg daily and Lipitor 40 mg. Patient ALLERGY to aspirin. * Check hemoglobin A1c, may consider as an outpatient, as patient is ready for discharge now. * Recommend healthy diet, exercise and weight loss.
--- NOTE | 2020-01-23 21:14 | CDI ---
Documentation Clarification Form Date: 01/24/2020 From: Joel Cunningham Phone: If you have a question about this query, please contact Lena Cardenas, Electrical Technician Instructor at [phone] between 8am and 5pm. Admit Date: 01/17/2020 Discharge Date: 01/20/2020 Patient Name: Dony Sidhu Visit Number: [id number] ATTENTION: The Clinical Documentation Specialists (CDI) and [facility] Coding Staff appreciate your assistance in clarifying documentation. Please respond to the clarification below the line at the bottom and electronically sign. The CDI & [facility] Coding staff will review the response and follow-up if needed. Please note: Queries are made part of the Legal Health Record. If you have any questions, please contact the author of this message via ITS. Dear Nahomi Guzmán MD., The patients principal diagnosis has not been clearly identified and requires clarification. He presented with the left facial droop, Cephalgia and transient left facial droop-a possibly be secondary to transient ischemic attack versus complicated migraine versus related to COVID infection. History/Risk factors: Covid 19 positive from past 2 weeks , TIA Vital Signs: 01/17/20 13:02 69 18 126/76 95 Treatment: Plavix 01/[address] Jimbo Hamlin MD, Transient episode of left facial droop: Possibly TIA vs Some Migrainous feature leading to complicated migraine (no hx of Migraine) but has been having headahces since COVID +ve for 2 weeks. 01/19 Neuro progress notes stated "Cephalgia and transient left facial droop, possible TIA versus complicated migraine versus related to COVID infection". Per Discharge Summary- Left facial droop, resolved probably TIA Acute bilateral Covid 19 pneumonia In your professional opinion, can you please clarify which diagnosis, after study, accounted for the patients presenting symptoms and was the reason chiefly responsible for the admission? Patients presenting symptoms likely related to TIA Patients presenting symptoms likely sequela of Covid-19 Other, Please Specify Unable to determine MTDD
== END 2020-01-20 17:55 | disposition home or self-care (01) | DRG 69 ==
LOC: EC 11:00 → 3SCARD 13:16
PROVIDERS: ADMIT Internal Medicine; ATTEND Internal Medicine
DX: G45.9 Transient cerebral ischemic attack, unspecified (principal); J12.89 Other viral pneumonia; U07.1 COVID-19; J96.11 Chronic respiratory failure with hypoxia; E78.5 Hyperlipidemia, unspecified; E66.9 Obesity, unspecified; F41.9 Anxiety disorder, unspecified; I10 Essential (primary) hypertension; F32.9 Major depressive disorder, single episode, unspecified; Z86.73 Personal history of transient ischemic attack (TIA), and cerebral infarction without residual deficits; Z68.38 Body mass index [BMI] 38.0-38.9, adult; Z79.899 Other long term (current) drug therapy; Z88.6 Allergy status to analgesic agent; Z79.02 Long term (current) use of antithrombotics/antiplatelets; Z88.5 Allergy status to narcotic agent; Z87.01 Personal history of pneumonia (recurrent)
CPT/HCPCS: 36415; 70450; 70496; 70498; 70553; 71046; 80048; 80053; 80061; 84443; 84484; 85025; 85610; 85730; 93005; 93306; 94640; 96361; 96374; 99285

== ENCOUNTER 2020-03-04 13:23 | Observation (INO) | payer BC ==
--- NOTE | 2020-03-04 13:49 | ED ---
Chest Pain HPI - General Chief Complaint: Chest Pain Stated Complaint: Chest Pain/Dizzy/Headache/Hypertension Time Seen by Provider: 03/04/20 13:34 Source: patient, family, RN notes reviewed, old records reviewed Mode of arrival: ambulatory Limitations: no limitations - History of Present Illness Initial Comments: Is a 59-year-old male with a history Covid 19 pectoralis year with a blood clot in the rain and CVA week and a half later who presents with 3 days of intermittent midsternal chest pain sharp in nature 67/10 severity and is worse currently 2/10 with associated weakness and dizziness. No prior history of heart disease. Is currently on Plavix. He is ALLERGIC to aspirin. No reports of fevers chills nausea vomiting sweats. MD Complaint: chest pain - Related Data Home Medications Medication Instructions Recorded Confirmed Atorvastatin Calcium [Lipitor] 20 mg PO HS 05/18/18 03/04/20 Escitalopram [Lexapro] 30 mg PO DAILY 05/18/18 03/04/20 Losartan Potassium 100 mg PO DAILY 05/18/18 03/04/20 Montelukast Sodium [Singulair] 10 mg PO DAILY 05/18/18 03/04/20 Multivit-Min/FA/Lycopen/Lutein 1 tab PO DAILY 05/18/18 03/04/20 [Centrum Silver Men Tablet] buPROPion XL [Wellbutrin XL] 300 mg PO HS 05/18/18 03/04/20 Gabapentin [Neurontin] 300 mg PO TID 01/03/20 03/04/20 Oxybutynin Chloride [Ditropan XL] 10 mg PO DAILY 01/03/20 03/04/20 buPROPion XL [Wellbutrin XL] 150 mg PO HS 01/03/20 03/04/20 ALPRAZolam [Xanax] 0.25 mg PO DAILY PRN 03/04/20 03/04/20 Budesonide/Formoterol Fumarate 2 puff INHALATION RT-BID 03/04/20 03/04/20 [Symbicort 160-4.5 Mcg Inhaler] Previous Rx's Medication Instructions Recorded Albuterol Inhaler [Ventolin Hfa 2 puff INHALATION RT-TID #1 inh 01/10/20 Inhaler] Ascorbic Acid [Vitamin C] 500 mg PO DAILY #21 tab 01/10/20 Cholecalciferol [Vitamin D3 (25 1,000 unit PO DAILY #30 tab 01/10/20 Mcg = 1000 Iu)] Famotidine [Pepcid] 20 mg PO DAILY #30 tab 01/10/20 Zinc Sulfate [Orazinc] 220 mg PO DAILY #30 cap 01/10/20 Clopidogrel [Plavix] 75 mg PO DAILY 30 Days #30 tab 01/20/20 Allergies Allergy/AdvReac Type Severity Reaction Status Date / Time aspirin Allergy Anaphylaxis Verified 03/04/20 15:42 ibuprofen [From Motrin] Allergy Anaphylaxis Verified 03/04/20 15:42 codeine AdvReac "dries Verified 03/04/20 15:42 system out" Review of Systems ROS Statement: Those systems with pertinent positive or pertinent negative responses have been documented in the HPI. ROS Other: All systems not noted in ROS Statement are negative. EKG Findings - EKG Results: EKG: interpreted by TRUDY, sinus rhythm (There was sinus rhythm a 72. Interval 162 QRS 90 QT since QTC 374/[address] configuration and nonspecific T- wave configuration inferior leads artifact present) Past Medical History Past Medical History: Asthma, CVA/TIA, Hyperlipidemia, Hypertension, Pneumonia Additional Past Medical History / Comment(s): Covid + 01/05 History of Any Multi-Drug Resistant Organisms: None Reported Past Surgical History: No Surgical Hx Reported Past Anesthesia/Blood Transfusion Reactions: No Reported Reaction Past Psychological History: Anxiety, Depression Smoking Status: Never smoker Past Alcohol Use History: None Reported Past Drug Use History: None Reported - Past Family History Mother History Unknown: Yes Father History Unknown: Yes General Exam - General Exam Comments Initial Comments: This is a well-developed well-nourished awake alert oriented 3 male Limitations: no limitations General appearance: alert, in no apparent distress Head exam: Present: atraumatic, normocephalic, normal inspection Eye exam: Present: normal appearance, PERRL, EOMI. Absent: scleral icterus, conjunctival injection, periorbital swelling ENT exam: Present: normal exam, mucous membranes moist Neck exam: Present: normal inspection, full ROM, other (No stridor JVD or bruits). Absent: tenderness, meningismus, lymphadenopathy Respiratory exam: Present: normal lung sounds bilaterally. Absent: respiratory distress, wheezes, rales, rhonchi, stridor, chest wall tenderness Cardiovascular Exam: Present: regular rate, normal rhythm, normal heart sounds. Absent: systolic murmur, diastolic murmur, rubs, gallop, clicks GI/Abdominal exam: Present: soft, normal bowel sounds. Absent: distended, t enderness, guarding, rebound, rigid Extremities exam: Present: normal inspection, full ROM, normal capillary refill. Absent: tenderness, pedal edema, joint swelling, calf tenderness Back exam: Present: normal inspection Neurological exam: Present: alert, oriented X3, CN II-XII intact Psychiatric exam: Present: normal affect, normal mood Skin exam: Present: warm, dry, intact, normal color. Absent: rash Course Vital Signs 03/04/20 03/04/20 03/04/20 13:26 14:45 15:43 Temperature 98 F Pulse Rate 73 66 65 Respiratory 18 18 18 Rate Blood Pressure 158/90 126/89 144/92 O2 Sat by Pulse 96 97 97 Oximetry Chest Pain MDM - MDM I did review the imaging and report no acute findings. I did discuss findings the patient and family as well as Neeta who is Dr. Ramirez's TUBE HAND[employer]ER patient will be admitted for cardiology evaluation. Disposition Clinical Impression: Atypical chest pain Disposition: ADMITTED IP TO THIS [facility] Condition: Fair Referrals: Keyana Bishop DO [Primary Care Provider] - 1-2 days
[2020-03-04 14:08] LABS: Basophils % (A) 1 %; Eosinophils # (A) 0.1 k/uL (0-0.7); Eosinophils % (A) 2 %; HCT 43.3 % (39.0-53.0); HGB 14.7 gm/dL (13.0-17.5); Lymphocytes # (A) 1.3 k/uL (1.0-4.8); Lymphocytes % (A) 21 %; MCH 30.1 pg (25.0-35.0); MCHC 34.1 g/dL (31.0-37.0); Mean Platelet Volume 7.1; Monocytes # (A) 0.7 k/uL (0-1.0); Monocytes % (A) 11 %; Neutrophils # (A) 3.9 k/uL (1.3-7.7); Neutrophils % (A) 61 %; Platelet Count 230 k/uL (150-450); RDW 13.8 % (11.5-15.5); WBC 6.3 k/uL (3.8-10.6)
[2020-03-04 14:11] LABS: MCV 88.4 fL (80.0-100.0)
[2020-03-04 14:19] LABS: Albumin 4.1 g/dL (3.5-5.0); Calcium 9.5 mg/dL (8.4-10.2); Magnesium 1.7 mg/dL (1.6-2.3); Potassium 4.4 mmol/L (3.5-5.1); Total Bilirubin 0.9 mg/dL (0.2-1.3); Total Protein 6.6 g/dL (6.3-8.2)
[2020-03-04 14:27] LABS: D-Dimer 0.33 mg/L FEU (<0.60); INR 0.9 (<1.2); Partial Thromboplastin Time 26.5 sec (22.0-30.0); Prothrombin Time 9.7 sec (9.0-12.0)
--- NOTE | 2020-03-04 14:39 | XR ---
EXAMINATION TYPE: XR chest 2V DATE OF EXAM: 03/04/2020 COMPARISON: 01/17/20 HISTORY: Shortness of breath TECHNIQUE: Frontal and lateral views of the chest are obtained. FINDINGS: Scattered senescent parenchymal changes noted. Hyperinflation compatible with COPD. Improved perihilar and basilar infiltrates relative to the prior study. Heart size is stable. Mediastinal structures are stable and grossly unremarkable. No evidence for hilar prominence. Degenerative changes dorsal spine. IMPRESSION: 1. Improved perihilar and basilar infiltrates relative to the prior study.
[2020-03-04] MEDS ORDERED: ACETAMINOPHEN TAB 325 MG TAB PO STA (14:41)
[2020-03-04] MEDS ORDERED: HYDROcodone/APAP 5-325MG 1 EACH TAB PO STA (15:53)
[2020-03-04] MEDS ORDERED: NITROGLYCERIN SL TABS 0.4 MG TAB SUBLINGUAL PRN (16:20)
[2020-03-04] MEDS ORDERED: ALPRAZolam 0.25 MG TAB PO PRN (16:21)
[2020-03-04] MEDS: SODIUM CHLORIDE 0.9% 1,000 ML IV SCH (16:40)
[2020-03-04] MEDS: ALBUTEROL NEBULIZED 2.5 MG/3 ML INHALATION SCH (19:43)
[2020-03-04] MEDS: SYMBICORT 160-4.5 MCG INHALER INHALATION SCH (19:43)
[2020-03-04] MEDS ORDERED: buPROPion XL 150 MG TAB.ER.24H PO SCH (21:00)
[2020-03-04] MEDS ORDERED: buPROPion XL 300 MG TAB.ER.24H PO SCH (21:00)
[2020-03-04] MEDS ORDERED: ATORVASTATIN 20 MG TAB PO SCH (21:00)
[2020-03-04] MEDS: GABAPENTIN 300 MG CAP PO SCH (21:34)
--- NOTE | 2020-03-04 22:44 | P.HPIM ---
History of Present Illness H&P Date: 03/04/20 Chief Complaint: Chest pain/dizziness 59-year-old male with a history of hypertension, hyperlipidemia, asthma and Covid 19 pneumonitis with a blood clot and CVA week and a half later who presents with 3 days of intermittent midsternal chest pain sharp in nature 67/10 severity and is worse currently 2/10 with associated weakness and dizziness. No prior history of heart disease. Is currently on Plavix. He is ALLERGIC to aspirin. No reports of fevers chills nausea vomiting sweats. Workup in ED including EKG shows normal sinus rhythm with nonspecific ST/T-wave changes in inferior leads Review of Systems REVIEW OF SYSTEMS: CONSTITUTIONAL: No fever, no malaise, no fatigue. HEENT: No recent visual problems or hearing problems. Denied any sore throat. CARDIOVASCULAR: No chest pain, orthopnea, PND, no palpitations, no syncope. PULMONARY: No shortness of breath, no cough, no hemoptysis. GASTROINTESTINAL: No diarrhea, no nausea, no vomiting, no abdominal pain. NEUROLOGICAL: No headaches, no weakness, no numbness. HEMATOLOGICAL: Denies any bleeding or petechiae. GENITOURINARY: Denies any burning micturition, frequency, or urgency. MUSCULOSKELETAL/RHEUMATOLOGICAL: Denies any joint pain, swelling, or any muscle pain. ENDOCRINE: Denies any polyuria or polydipsia. The rest of the 14-point review of systems is negative. Past Medical History Past Medical History: Asthma, CVA/TIA, Hyperlipidemia, Hypertension, Pneumonia Additional Past Medical History / Comment(s): Covid + 01/05 History of Any Multi-Drug Resistant Organisms: None Reported Past Surgical History: No Surgical Hx Reported Past Anesthesia/Blood Transfusion Reactions: No Reported Reaction Past Psychological History: Anxiety, Depression Smoking Status: Never smoker Past Alcohol Use History: None Reported Past Drug Use History: None Reported - Past Family History Mother History Unknown: Yes Father History Unknown: Yes Medications and Allergies Home Medications Medication Instructions Recorded Confirmed Type Atorvastatin Calcium [Lipitor] 20 mg PO HS 05/18/18 03/04/20 History Escitalopram [Lexapro] 30 mg PO DAILY 05/18/18 03/04/20 History Losartan Potassium 100 mg PO DAILY 05/18/18 03/04/20 History Montelukast Sodium [Singulair] 10 mg PO DAILY 05/18/18 03/04/20 History Multivit-Min/FA/Lycopen/Lutein 1 tab PO DAILY 05/18/18 03/04/20 History [Centrum Silver Men Tablet] buPROPion XL [Wellbutrin XL] 300 mg PO HS 05/18/18 03/04/20 History Gabapentin [Neurontin] 300 mg PO TID 01/03/20 03/04/20 History Oxybutynin Chloride [Ditropan XL] 10 mg PO DAILY 01/03/20 03/04/20 History buPROPion XL [Wellbutrin XL] 150 mg PO HS 01/03/20 03/04/20 History Albuterol Inhaler [Ventolin Hfa 2 puff INHALATION RT-TID #1 inh 01/10/20 1 05/05/19 Rx Inhaler] Ascorbic Acid [Vitamin C] 500 mg PO DAILY #21 tab 01/10/20 03/04/20 Rx Cholecalciferol [Vitamin D3 (25 1,000 unit PO DAILY #30 tab 01/10/20 03/04/20 Rx Mcg = 1000 Iu)] Famotidine [Pepcid] 20 mg PO DAILY #30 tab 01/10/20 03/04/20 Rx Zinc Sulfate [Orazinc] 220 mg PO DAILY #30 cap 01/10/20 03/04/20 Rx Clopidogrel [Plavix] 75 mg PO DAILY 30 Days #30 tab 01/20/20 03/04/20 Rx ALPRAZolam [Xanax] 0.25 mg PO DAILY PRN 03/04/20 03/04/20 History Budesonide/Formoterol Fumarate 2 puff INHALATION RT-BID 03/04/20 03/04/20 History [Symbicort 160-4.5 Mcg Inhaler] Allergies Allergy/AdvReac Type Severity Reaction Status Date / Time aspirin Allergy Anaphylaxis Verified 03/04/20 15:42 ibuprofen [From Motrin] Allergy Anaphylaxis Verified 03/04/20 15:42 codeine AdvReac "dries Verified 03/04/20 15:42 system out" Physical Exam Vitals: Vital Signs Temp Pulse Resp BP Pulse Ox 03/04/20 16:57 97.4 F L 63 18 132/86 03/04/20 15:43 65 18 144/92 97 03/04/20 14:45 66 18 126/89 97 03/04/20 13:26 98 F 73 18 158/90 96 Intake and Output 03/04/20 03/04/20 03/04/20 06:59 14:59 22:59 Other: Weight 117.934 kg - Constitutional General appearance: Present: average body habitus, cooperative, no acute distress - EENT Eyes: Present: anicteric sclerae, EOMI, PERRLA, normal appearance ENT: Present: hearing grossly normal, normal oropharynx Ears: bilateral: normal - Neck Neck: Present: normal ROM. Absent: lymphadenopathy, rigidity, thyromegaly Carotids: negative: bruit present Thyroid: bilateral: normal size, negative: enlarged, nodule - Respiratory Respiratory: bilateral: CTA, negative: rales, rhonchi, wheezing - Cardiovascular Rhythm: regular Heart sounds: normal: S1, S2 Abnormal Heart Sounds: Absent: systolic murmur, diastolic murmur - Gastrointestinal General gastrointestinal: Present: normal bowel sounds, soft. Absent: distended, organomegaly, tenderness - Genitourinary Genitourinary Comment(s): deferred - Integumentary Integumentary: Present: normal turgor. Absent: jaundiced, rash, ulcer - Neurologic Neurologic: Present: CNII-XII intact. Absent: focal deficits - Musculoskeletal Musculoskeletal: Present: gait normal, strength equal bilaterally - Psychiatric Psychiatric: Present: A&O x's 3, appropriate affect, intact judgment & insight Results CBC & Chem 7: 03/04/20 13:57 03/04/20 13:57 Labs: Abnormal Lab Results - Last 24 Hours (Table) 03/04/20 Range/Units 13:57 BUN 21 H (9-20) mg/dL Creatine Kinase 50 L (55-170) U/L Assessment and Plan Assessment: 1. Chest pain rule out acute coronary syndrome - We will admit to telemetry and monitor EKG; trend troponin; recommend echocardiogram; cardiology is consulted and recommendations are pending 2. Uncontrolled hypertension - Patient takes losartan 100 mg daily at home; we will resume home medications and monitor blood pressure closely for any further adjustments 3. Hyperlipidemia; Lipitor 20 g by mouth daily at bedtime 4. Asthma; not in exacerbation; continue home inhalers therapy in form of Symbicort 2 puffs twice a day and Singulair 10 mg daily 5. Neuropathy; continue with Neurontin 300 mg 3 times a day 6. Depression/anxiety; Lexapro 30 mg daily, Wellbutrin 300 mg by mouth daily at at bedtime and Xanax 0.5 mg daily when necessary DVT prophylaxis; SCDs/subcu heparin CODE STATUS; full code
[2020-03-05] MEDS: SODIUM CHLORIDE 0.9% 1,000 ML IV SCH ×2 (03:40→07:32)
[2020-03-05 04:34] VITALS: RESP 16
[2020-03-05] MEDS: ALBUTEROL NEBULIZED 2.5 MG/3 ML INHALATION SCH ×2 (07:15→11:09)
[2020-03-05] MEDS: SYMBICORT 160-4.5 MCG INHALER INHALATION SCH (07:16)
[2020-03-05 07:44] VITALS: BP 156/83; TEMP 98
[2020-03-05] MEDS: GABAPENTIN 300 MG CAP PO SCH ×2 (08:50→16:13)
[2020-03-05] MEDS ORDERED: MONTELUKAST 10 MG TAB PO SCH (09:00)
[2020-03-05] MEDS ORDERED: CHOLECALCIFEROL 1,000 UNIT TAB PO SCH (09:00)
[2020-03-05] MEDS ORDERED: OXYBUTYNIN 10 MG TAB.ER.24 PO SCH (09:00)
[2020-03-05] MEDS ORDERED: CLOPIDOGREL 75 MG TAB PO SCH (09:00)
[2020-03-05] MEDS ORDERED: MULTIVITAMINS, THERA 1 EACH TAB PO SCH (09:00)
[2020-03-05] MEDS ORDERED: ZINC SULFATE 220 MG CAP PO SCH (09:00)
[2020-03-05] MEDS ORDERED: FAMOTIDINE 20 MG TAB PO SCH (09:00)
[2020-03-05] MEDS ORDERED: ASCORBIC ACID 500 MG TAB PO SCH (09:00)
[2020-03-05] MEDS ORDERED: LOSARTAN 50 MG TAB PO SCH (09:00)
[2020-03-05] MEDS ORDERED: ESCITALOPRAM 10 MG TAB PO SCH (09:00)
[2020-03-05 09:27] LABS: Calcium 8.6 mg/dL (8.4-10.2)
[2020-03-05 09:32] LABS: Potassium 5.1 mmol/L (3.5-5.1)
[2020-03-05] MEDS ORDERED: HYDROcodone/APAP 5-325MG 1 EACH TAB PO STA (09:53)
[2020-03-05 10:36] LABS: Basophils # (A) 0.1 k/uL (0-0.2); Basophils % (A) 1 %; Eosinophils # (A) 0.1 k/uL (0-0.7); Eosinophils % (A) 2 %; HCT 40.5 % (39.0-53.0); HGB 13.6 gm/dL (13.0-17.5); Lymphocytes # (A) 1.2 k/uL (1.0-4.8); Lymphocytes % (A) 17 %; MCHC 33.5 g/dL (31.0-37.0); MCV 89.6 fL (80.0-100.0); Mean Platelet Volume 7.1; Monocytes # (A) 0.7 k/uL (0-1.0); Monocytes % (A) 10 %; Neutrophils # (A) 4.8 k/uL (1.3-7.7); Neutrophils % (A) 68 %; Platelet Count 189 k/uL (150-450); RBC 4.52 m/uL (4.30-5.90); RDW 13.9 % (11.5-15.5); WBC 7.1 k/uL (3.8-10.6)
[2020-03-05 11:21] VITALS: PULSE 74
--- NOTE | 2020-03-05 16:14 | P.CRDCN ---
History of Present Illness History of present illness: HISTORY OF PRESENTING ILLNESS This is a pleasant 59-year-old male past medical history significant for hypertension, hyperlipidemia, recent Covid infection with TIA/CVA symptoms shortly after Covid infection, asthma. Patient admits to having chest pain which is worse with swallowing foods which feels sharp in nature or the past 2-3 days. He denies any similar episodes in the past. No association with shortness breath, diaphoresis, nausea. Patient admits to still feeling somewhat short of breath secondary to the edward virus however has been fairly stable up until last 2-3 days. He notes that the pain is only really there when he swallows food. He was however able to swallow breakfast this morning with only minimal discomfort. DIAGNOSTICS EKG reveals normal sinus rhythm, artifact, J-point elevation in leads 2,3, V2 V3, no reciprocal changes. Chest xray improved perihilar and basilar infiltrates relative to the prior study. Laboratory reviewed, white blood cells 7.1, hemoglobin 13.6, platelets 189, creatinine 1.25, troponin normal 3, proBNP less than 11. Current cardiac medications include Lipitor 20 mg daily, Plavix 75 mg daily, losartan 100 mg daily, nitroglycerin when necessary. REVIEW OF SYSTEMS At the time of my exam: CONSTITUTIONAL: Denies fever or chills. CARDIOVASCULAR: + chest pain, + chronic shortness of breath, no orthopnea, PND or palpitations. RESPIRATORY: Denies cough. GASTROINTESTINAL: Denies abdominal pain, diarrhea, constipation, nausea or v omiting. MUSCULOSKELETAL: Denies myalgias. NEUROLOGIC: Denies numbness, tingling or weakness. ENDOCRINE: Denies fatigue, weight change, polydipsia or polyurina. GENITOURINARY: Denies burning, hematuria or urgency with micturation. HEMATOLOGIC: Denies history of anemia or bleeding. PHYSICAL EXAMINATION Blood pressure 156/83 heart rate 75 afebrile and maintaining oxygen saturation on 2 L nasal cannula. CONSTITUTIONAL: No apparent distress. HEENT: Head is normocephalic. Pupils are equal, round. Sclerae anicteric. Mucous membranes of the mouth are moist. No JVD. No carotid bruit. CHEST EXAMINATION: Lungs are clear to auscultation. No chest wall tenderness is noted on palpation or with deep breathing. HEART EXAMINATION: Regular rate and rhythm. S1, S2 heard. No murmurs, gallops or rub. ABDOMEN: Soft, nontender. Positive bowel sounds. EXTREMITIES: 2+ peripheral pulses, no lower extremity edema and no calf tenderness. NEUROLOGIC EXAMINATION: Patient is awake, alert and oriented x3. ASSESSMENT 1. Atypical chest pain, sharp in nature and worse with swallowing. Suspect GI/esophageal source. Troponins negative and no evidence of acute coronary syndrome 2. Essential hypertension, mildly elevated likely related to anxiety 3. Hyperlipidemia 4. Recent coronavirus infection 5. Shortness of breath related to recovering coronavirus pneumonia 6. Recent TIA/CVA PLAN Chest pain is atypical and suspect mainly related to a GI or esophageal source as it only happens when he is swallowing food. Do not suspect acute coronary syndrome. Patient may be discharged with outpatient follow-up. Would recommend outpatient echocardiogram and evaluate for any need for stress testing. Past Medical History Past Medical History: Asthma, CVA/TIA, Hyperlipidemia, Hypertension, Pneumonia Additional Past Medical History / Comment(s): Covid + 01/05 History of Any Multi-Drug Resistant Organisms: None Reported Past Surgical History: No Surgical Hx Reported Past Anesthesia/Blood Transfusion Reactions: No Reported Reaction Past Psychological History: Anxiety, Depression Smoking Status: Never smoker Past Alcohol Use History: None Reported Past Drug Use History: None Reported - Past Family History Mother History Unknown: Yes Father History Unknown: Yes Medications and Allergies Home Medications Medication Instructions Recorded Confirmed Type Atorvastatin Calcium [Lipitor] 20 mg PO HS 05/18/18 03/04/20 History Escitalopram [Lexapro] 30 mg PO DAILY 05/18/18 03/04/20 History Losartan Potassium 100 mg PO DAILY 05/18/18 03/04/20 History Montelukast Sodium [Singulair] 10 mg PO DAILY 05/18/18 03/04/20 History Multivit-Min/FA/Lycopen/Lutein 1 tab PO DAILY 05/18/18 03/04/20 History [Centrum Silver Men Tablet] buPROPion XL [Wellbutrin XL] 300 mg PO HS 05/18/18 03/04/20 History Gabapentin [Neurontin] 300 mg PO TID 01/03/20 03/04/20 History Oxybutynin Chloride [Ditropan XL] 10 mg PO DAILY 01/03/20 03/04/20 History buPROPion XL [Wellbutrin XL] 150 mg PO HS 01/03/20 03/04/20 History Albuterol Inhaler [Ventolin Hfa 2 puff INHALATION RT-TID #1 inh 01/10/20 03/04/20 Rx Inhaler] Ascorbic Acid [Vitamin C] 500 mg PO DAILY #21 tab 01/10/20 03/04/20 Rx Cholecalciferol [Vitamin D3 (25 1,000 unit PO DAILY #30 tab 01/10/20 03/04/20 Rx Mcg = 1000 Iu)] Famotidine [Pepcid] 20 mg PO DAILY #30 tab 01/10/20 03/04/20 Rx Zinc Sulfate [Orazinc] 220 mg PO DAILY #30 cap 01/10/20 03/04/20 Rx Clopidogrel [Plavix] 75 mg PO DAILY 30 Days #30 tab 01/20/20 03/04/20 Rx ALPRAZolam [Xanax] 0.25 mg PO DAILY PRN 03/04/20 03/04/20 History Budesonide/Formoterol Fumarate 2 puff INHALATION RT-BID 03/04/20 03/04/20 History [Symbicort 160-4.5 Mcg Inhaler] Allergies Allergy/AdvReac Type Severity Reaction Status Date / Time aspirin Allergy Anaphylaxis Verified 03/04/20 15:42 ibuprofen [From Motrin] Allergy Anaphylaxis Verified 03/04/20 15:42 codeine AdvReac "dries Verified 03/04/20 15:42 system out" Physical Exam Vitals: Vital Signs Temp Pulse Pulse Resp BP BP Pulse Ox 03/05/20 11:20 74 03/05/20 11:09 72 03/05/20 07:41 98.0 F 75 16 156/83 97 03/05/20 07:25 76 03/05/20 07:15 74 03/05/20 03:00 98.1 F 67 16 134/71 94 L 03/04/20 21:00 97.9 F 71 18 129/82 92 L 03/04/20 20:02 80 03/04/20 19:49 97 03/04/20 19:48 78 03/04/20 17:23 97.7 F 62 18 132/82 96 03/04/20 16:57 97.4 F L 63 18 132/86 Intake and Output 03/05/20 03/05/20 03/05/20 06:59 14:59 22:59 Other: Voiding Method Toilet Toilet # Voids 1 1 # Bowel Movements 1 Results 03/05/20 10:13 03/05/20 08:36 Cardiac Enzymes 03/04/20 03/04/20 Range/Units 16:30 19:51 Troponin I <0.012 <0.012 (0.000-0.034) ng/mL Lipids 03/05/20 Range/Units 08:36 Triglycerides 142 (<150) mg/dL Cholesterol 164 (<200) mg/dL HDL Cholesterol 44 (40-60) mg/dL CBC 03/05/20 Range/Units 10:13 WBC 7.1 (3.8-10.6) k/uL RBC 4.52 (4.30-5.90) m/uL Hgb 13.6 (13.0-17.5) gm/dL Hct 40.5 (39.0-53.0) % Plt Count 189 (150-450) k/uL Comprehensive Metabolic Panel 03/05/20 Range/Units 08:36 Sodium 139 (137-145) mmol/L Potassium 5.1 (3.5-5.1) mmol/L Chloride 106 (98-107) mmol/L Carbon Dioxide 27 (22-30) mmol/L BUN 18 (9-20) mg/dL Creatinine 1.25 (0.66-1.25) mg/dL Glucose 88 (74-99) mg/dL Calcium 8.6 (8.4-10.2) mg/dL Current Medications Generic Name Dose Route Start Last Admin Trade Name Freq PRN Reason Stop Dose Admin Albuterol Sulfate 2.5 mg 03/04/20 20:00 03/05/20 11:09 Albuterol Nebulized 2.5 Mg/3 Ml INHALATION 2.5 mg RT-TID ODILIA Administration Alprazolam 0.25 mg 03/04/20 16:21 Alprazolam 0.25 Mg Tab PO DAILY PRN Anxiety Ascorbic Acid 500 mg 03/05/20 09:00 03/05/20 08:50 Ascorbic Acid 500 Mg Tab PO 500 mg DAILY ODILIA Administration Atorvastatin Calcium 20 mg 03/04/20 21:00 03/04/20 21:35 Atorvastatin 20 Mg Tab PO 20 mg HS ODILIA Administration Budesonide/Formoterol Fumarate 2 puff 03/04/20 20:00 03/05/20 07:16 Symbicort 160-4.5 Mcg Inhaler INHALATION 2 puff RT-BID ODILIA Administration Bupropion HCl 450 mg 03/04/20 21:00 03/04/20 21:35 Bupropion Xl 150 Mg Tab.Er.24h PO 450 mg HS ODILIA Administration Cholecalciferol 1,000 unit 03/05/20 09:00 03/05/20 08:51 Cholecalciferol 1,000 Unit Tab PO 1,000 unit DAILY ODILIA Administration Clopidogrel Bisulfate 75 mg 03/05/20 09:00 03/05/20 08:50 Clopidogrel 75 Mg Tab PO 75 mg DAILY ODILIA Administration Escitalopram Oxalate 30 mg 03/05/20 09:00 03/05/20 09:36 Escitalopram 10 Mg Tab PO 30 mg DAILY ODILIA Administration Famotidine 20 mg 03/05/20 09:00 03/05/20 08:50 Famotidine 20 Mg Tab PO 20 mg DAILY ODILIA Administration Gabapentin 300 mg 03/04/20 22:00 03/05/20 08:50 Gabapentin 300 Mg Cap PO 300 mg TID ODILIA Administration Sodium Chloride 1,000 mls @ 100 mls/hr 03/04/20 16:30 03/05/20 07:32 Saline 0.9% IV 100 mls/hr .Q10H ODILIA Administration Losartan Potassium 100 mg 03/05/20 09:00 03/05/20 08:50 Losartan 50 Mg Tab PO 100 mg DAILY ODILIA Administration Montelukast Sodium 10 mg 03/05/20 09:00 03/05/20 08:50 Montelukast 10 Mg Tab PO 10 mg DAILY ODILIA Administration Multivitamins 1 each 03/05/20 09:00 03/05/20 08:51 Multivitamins, Thera 1 Each Tab PO 1 each DAILY ODILIA Administration Nitroglycerin 0.4 mg 03/04/20 16:20 Nitroglycerin Sl Tabs 0.4 Mg Tab SUBLINGUAL Q5M PRN Chest Pain Oxybutynin Chloride 10 mg 03/05/20 09:00 03/05/20 09:36 Oxybutynin 10 Mg Tab.Er.24 PO 10 mg DAILY ODILIA Administration Zinc Sulfate 220 mg 03/05/20 09:00 03/05/20 08:51 Zinc Sulfate 220 Mg Cap PO 220 mg DAILY ODILIA Administration Intake and Output 03/05/20 03/05/20 03/05/20 06:59 14:59 22:59 Other: Voiding Method Toilet Toilet # Voids 1 1 # Bowel Movements 1 03/05/20 10:13 03/05/20 08:36
== END 2020-03-05 16:20 | disposition home or self-care (01) ==
LOC: EC 13:23 → 1SOBS 16:20
PROVIDERS: ADMIT Internal Medicine; ATTEND Internal Medicine
DX: R07.89 Other chest pain (principal); I10 Essential (primary) hypertension; J45.909 Unspecified asthma, uncomplicated; E78.5 Hyperlipidemia, unspecified; G62.9 Polyneuropathy, unspecified; R42 Dizziness and giddiness; R53.1 Weakness; F32.9 Major depressive disorder, single episode, unspecified; F41.9 Anxiety disorder, unspecified; Z79.51 Long term (current) use of inhaled steroids; Z79.02 Long term (current) use of antithrombotics/antiplatelets; Z79.899 Other long term (current) drug therapy; Z88.6 Allergy status to analgesic agent; Z88.5 Allergy status to narcotic agent; Z86.19 Personal history of other infectious and parasitic diseases; Z86.73 Personal history of transient ischemic attack (TIA), and cerebral infarction without residual deficits; Z87.01 Personal history of pneumonia (recurrent); Z86.718 Personal history of other venous thrombosis and embolism
CPT/HCPCS: 93005 ×2; 96360; 96361; 99285; 36415; 94640 ×3; 85379; 83880; 80061; 80053; 80048; 82550; 83690; 83735; 84484; 85025 ×2; 85610; 85730; 71046; G0378 ×2

== ENCOUNTER → 2020-05-11 | Outpatient (CLI) | payer BC ==
--- NOTE | 2020-05-12 05:40 | CT ---
EXAMINATION TYPE: CT chest wo con DATE OF EXAM: 05/11/2020 COMPARISON: 01/03/2020 HISTORY: 60-year-old male J96.01, acute respiratory failure, with shortness of breath, Dyspnea x4 mon ths, hx of Covid. TECHNIQUE: Contiguous axial scanning of the chest without IV contrast. Coronal and sagittal reconstru ctions performed. CT DLP: 580.3 mGycm Automated exposure control for dose reduction was used. FINDINGS: Heart normal size without pericardial effusion. Mild LAD coronary artery calcifications are present. Ascending aorta mildly aneurysmal at 4.0 cm, unchanged. Bovine configuration to the aortic arch. No thoracic lymphadenopathy by CT size criteria. Very mild interstitial groundglass remains in the mid and lower lungs versus mosaic attenuation/air t rapping. This shows partial improvement as compared to the prior exam. No consolidation or pleural effusion. Visualized upper abdomen shows no gross abnormality. Bones: Anterior endplate spondylosis lower thoracic spine. No osseous destructive process. IMPRESSION: 1. MILD RESIDUAL INTERSTITIAL GROUNDGLASS CHANGES IN THE MID AND LOWER LUNGS REMAIN. FINDINGS COULD R EFLECT INTERSTITIAL SCARRING A RESULT OF PRIOR COVID-19 PNEUMONIA OR MOSAIC ATTENUATION RELATING T O AIR TRAPPING FROM SMALL AIRWAYS DISEASE. THE CHANGES ARE LESS PRONOUNCED COMPARED TO 01/03/20 20, RECURRENT ATYPICAL PNEUMONIA IS CONSIDERED LESS LIKELY. 2. MILD ASCENDING AORTIC ANEURYSM AT 4.0 CM, UNCHANGED.
== END ==
LOC: RADCTMAIN 17:04
PROVIDERS: ATTEND Internal Medicine Critical Care Medicine
DX: J96.00 Acute respiratory failure, unspecified whether with hypoxia or hypercapnia (principal); I71.2 Thoracic aortic aneurysm, without rupture; Z86.16 Personal history of COVID-19
CPT/HCPCS: 71250

== ENCOUNTER 2020-05-14 09:31 | Emergency (ER) | payer BC ==
[2020-05-14 09:42] VITALS: TEMP 98.1
[2020-05-14] MEDS ORDERED: SODIUM CHLORIDE 0.9% 1,000 ML IV STA (09:59)
[2020-05-14] MEDS ORDERED: SODIUM CHLORIDE 0.9% 500 ML 500 ML IV STA (09:59)
--- NOTE | 2020-05-14 10:01 | ED ---
Abdominal Pain HPI - General Chief Complaint: Abdominal Pain Stated Complaint: Abd Pain Time Seen by Provider: 05/14/20 09:51 Source: patient, RN notes reviewed Mode of arrival: ambulatory Limitations: no limitations - History of Present Illness Initial Comments: This a 60-year-old male presents emergency Department chief complaint lower abdominal pain. Patient states pain has been increasing over the last few days to weeks. Patient states the is no history of abdominal surgeries no history of diverticulitis no dysuria no hematuria no diarrhea no constipation denies melena hematochezia. Patient states it feels like a twisting sensation in his lower abdomen. Patient has seen his PCP for this and placed him on Nexium. Patient denies any fevers chills chest pain shortness of breath or any changes chronic back pain patient has a bowel bladder incontinence or retention no anesthesias - Related Data Home Medications Medication Instructions Recorded Confirmed Atorvastatin Calcium [Lipitor] 20 mg PO HS 05/18/18 03/04/20 Escitalopram [Lexapro] 30 mg PO DAILY 05/18/18 03/04/20 Losartan Potassium 100 mg PO DAILY 05/18/18 03/04/20 Montelukast Sodium [Singulair] 10 mg PO DAILY 05/18/18 03/04/20 Multivit-Min/FA/Lycopen/Lutein 1 tab PO DAILY 05/18/18 03/04/20 [Centrum Silver Men Tablet] buPROPion XL [Wellbutrin XL] 300 mg PO HS 05/18/18 03/04/20 Gabapentin [Neurontin] 300 mg PO TID 01/03/20 03/04/20 Oxybutynin Chloride [Ditropan XL] 10 mg PO DAILY 01/03/20 03/04/20 buPROPion XL [Wellbutrin XL] 150 mg PO HS 01/03/20 03/04/20 ALPRAZolam [Xanax] 0.25 mg PO DAILY PRN 03/04/20 03/04/20 Budesonide/Formoterol Fumarate 2 puff INHALATION RT-BID 03/04/20 03/04/20 [Symbicort 160-4.5 Mcg Inhaler] Previous Rx's Medication Instructions Recorded Albuterol Inhaler [Ventolin Hfa 2 puff INHALATION RT-TID #1 inh 01/10/20 Inhaler] Ascorbic Acid [Vitamin C] 500 mg PO DAILY #21 tab 01/10/20 Cholecalciferol [Vitamin D3 (25 1,000 unit PO DAILY #30 tab 01/10/20 Mcg = 1000 Iu)] Famotidine [Pepcid] 20 mg PO DAILY #30 tab 01/10/20 Zinc Sulfate [Orazinc] 220 mg PO DAILY #30 cap 01/10/20 Clopidogrel [Plavix] 75 mg PO DAILY 30 Days #30 tab 01/20/20 Allergies Allergy/AdvReac Type Severity Reaction Status Date / Time aspirin Allergy Anaphylaxis Verified 05/14/20 09:42 ibuprofen [From Motrin] Allergy Anaphylaxis Verified 05/14/20 09:42 codeine AdvReac "dries Verified 05/14/20 09:42 system out" Review of Systems ROS Statement: Those systems with pertinent positive or pertinent negative responses have been documented in the HPI. ROS Other: All systems not noted in ROS Statement are negative. Past Medical History Past Medical History: Asthma, CVA/TIA, Hyperlipidemia, Hypertension, Pneumonia Additional Past Medical History / Comment(s): Covid + 01/05 History of Any Multi-Drug Resistant Organisms: None Reported Past Surgical History: No Surgical Hx Reported Past Anesthesia/Blood Transfusion Reactions: No Reported Reaction Past Psychological History: Anxiety, Depression Smoking Status: Never smoker Past Alcohol Use History: None Reported Past Drug Use History: None Reported - Past Family History Mother History Unknown: Yes Father History Unknown: Yes General Exam Limitations: no limitations General appearance: alert, in no apparent distress Head exam: Present: atraumatic, normocephalic, normal inspection Eye exam: Present: normal appearance, PERRL, EOMI. Absent: scleral icterus, conjunctival injection, periorbital swelling ENT exam: Present: normal exam, normal oropharynx, mucous membranes moist Neck exam: Present: normal inspection, full ROM. Absent: tenderness, meningismus, lymphadenopathy Respiratory exam: Present: normal lung sounds bilaterally. Absent: respiratory distress, wheezes, rales, rhonchi, stridor Cardiovascular Exam: Present: regular rate, normal rhythm, normal heart sounds. Absent: systolic murmur, diastolic murmur, rubs, gallop, clicks GI/Abdominal exam: Present: soft, tenderness (Moderate lower), normal bowel s ounds. Absent: distended, guarding, rebound, rigid Back exam: Absent: CVA tenderness (R), CVA tenderness (L) Neurological exam: Present: alert, oriented X3 Skin exam: Present: warm, dry, intact, normal color. Absent: rash Course Vital Signs 05/14/20 09:38 Temperature 98.1 F Pulse Rate 80 Respiratory 16 Rate Blood Pressure 186/98 O2 Sat by Pulse 95 Oximetry Medical Decision Making - Medical Decision Making 60-year-old presents for lower abdominal cramping burning twisting sensation. Labs urinalysis CT reviewed there is no significant findings. No overt signs of infection. Patient does have moderate constipation may be causing some patient's pain is assessment ongoing for days to weeks. Patient will be given bowel prep. Patient will be discharged in stable condition return parameters were discussed. - Lab Data Result diagrams: 05/14/20 10:02 05/14/20 10:02 Lab Results 05/14/20 05/14/20 05/14/20 Range/Units 10:02 10:02 10:02 WBC 6.7 (3.8-10.6) k/uL RBC 5.09 (4.30-5.90) m/uL Hgb 14.9 (13.0-17.5) gm/dL Hct 45.0 (39.0-53.0) % MCV 88.5 (80.0-100.0) fL MCH 29.3 (25.0-35.0) pg MCHC 33.1 (31.0-37.0) g/dL RDW 12.7 (11.5-15.5) % Plt Count 237 (150-450) k/uL MPV 7.2 Neutrophils % 66 % Lymphocytes % 19 % Monocytes % 10 % Eosinophils % 2 % Basophils % 1 % Neutrophils # 4.4 (1.3-7.7) k/uL Lymphocytes # 1.3 (1.0-4.8) k/uL Monocytes # 0.7 (0-1.0) k/uL Eosinophils # 0.1 (0-0.7) k/uL Basophils # 0.0 (0-0.2) k/uL Sodium 137 (137-145) mmol/L Potassium 4.5 (3.5-5.1) mmol/L Chloride 102 (98-107) mmol/L Carbon Dioxide 26 (22-30) mmol/L Anion Gap 9 mmol/L BUN 27 H (9-20) mg/dL Creatinine 1.44 H (0.66-1.25) mg/dL Est GFR (CKD-EPI)AfAm 60 (>60 ml/min/1.73 sqM) Est GFR (CKD-EPI)NonAf 52 (>60 ml/min/1.73 sqM) Glucose 102 H (74-99) mg/dL Plasma Lactic Acid Abhilash 0.9 (0.7-2.0) mmol/L Calcium 9.0 (8.4-10.2) mg/dL Total Bilirubin 0.7 (0.2-1.3) mg/dL AST 30 (17-59) U/L ALT 34 (4-49) U/L Alkaline Phosphatase 77 (38-126) U/L Total Protein 6.8 (6.3-8.2) g/dL Albumin 4.4 (3.5-5.0) g/dL Amylase 51 (30-110) U/L Lipase 52 (23-300) U/L Urine Color Urine Appearance (Clear) Urine pH (5.0-8.0) Ur Specific Olin (1.001-1.035) Urine Protein (Negative) Urine Glucose (UA) (Negative) Urine Ketones (Negative) Urine Blood (Negative) Urine Nitrite (Negative) Urine Bilirubin (Negative) Urine Urobilinogen (<2.0) mg/dL Ur Leukocyte Esterase (Negative) 05/14/20 Range/Units 10:49 WBC (3.8-10.6) k/uL RBC (4.30-5.90) m/uL Hgb (13.0-17.5) gm/dL Hct (39.0-53.0) % MCV (80.0-100.0) fL MCH (25.0-35.0) pg MCHC (31.0-37.0) g/dL RDW (11.5-15.5) % Plt Count (150-450) k/uL MPV Neutrophils % % Lymphocytes % % Monocytes % % Eosinophils % % Basophils % % Neutrophils # (1.3-7.7) k/uL Lymphocytes # (1.0-4.8) k/uL Monocytes # (0-1.0) k/uL Eosinophils # (0-0.7) k/uL Basophils # (0-0.2) k/uL Sodium (137-145) mmol/L Potassium (3.5-5.1) mmol/L Chloride (98-107) mmol/L Carbon Dioxide (22-30) mmol/L Anion Gap mmol/L BUN (9-20) mg/dL Creatinine (0.66-1.25) mg/dL Est GFR (CKD-EPI)AfAm (>60 ml/min/1.73 sqM) Est GFR (CKD-EPI)NonAf (>60 ml/min/1.73 sqM) Glucose (74-99) mg/dL Plasma Lactic Acid Abhilash (0.7-2.0) mmol/L Calcium (8.4-10.2) mg/dL Total Bilirubin (0.2-1.3) mg/dL AST (17-59) U/L ALT (4-49) U/L Alkaline Phosphatase (38-126) U/L Total Protein (6.3-8.2) g/dL Albumin (3.5-5.0) g/dL Amylase (30-110) U/L Lipase (23-300) U/L Urine Color Yellow Urine Appearance C (Clear) Urine pH 5.0 (5.0-8.0) Ur Specific Olin 1.016 (1.001-1.035) Urine Protein Negative (Negative) Urine Glucose (UA) Negative (Negative) Urine Ketones Negative (Negative) Urine Blood Negative (Negative) Urine Nitrite Negative (Negative) Urine Bilirubin Negative (Negative) Urine Urobilinogen <2.0 (<2.0) mg/dL Ur Leukocyte Esterase Negative (Negative) Disposition Clinical Impression: Abdominal pain Disposition: HOME SELF-CARE Condition: Stable Instructions (If sedation given, give patient instructions): Abdominal Pain (ED) Additional Instructions: Please return to the Emergency Department if symptoms worsen or any other concerns. Is patient prescribed a controlled substance at d/c from ED?: No Referrals: Keyana Bishop DO [Primary Care Provider] - 1-2 days Time of Disposition: 11:42
[2020-05-14 10:17] LABS: Basophils % (A) 1 %; Eosinophils # (A) 0.1 k/uL (0-0.7); Eosinophils % (A) 2 %; HGB 14.9 gm/dL (13.0-17.5); Lymphocytes # (A) 1.3 k/uL (1.0-4.8); Lymphocytes % (A) 19 %; MCH 29.3 pg (25.0-35.0); MCHC 33.1 g/dL (31.0-37.0); MCV 88.5 fL (80.0-100.0); Mean Platelet Volume 7.2; Monocytes # (A) 0.7 k/uL (0-1.0); Monocytes % (A) 10 %; Neutrophils # (A) 4.4 k/uL (1.3-7.7); Neutrophils % (A) 66 %; Platelet Count 237 k/uL (150-450); RBC 5.09 m/uL (4.30-5.90); RDW 12.7 % (11.5-15.5); WBC 6.7 k/uL (3.8-10.6)
[2020-05-14 10:31] LABS: Albumin 4.4 g/dL (3.5-5.0); Potassium 4.5 mmol/L (3.5-5.1); Total Bilirubin 0.7 mg/dL (0.2-1.3); Total Protein 6.8 g/dL (6.3-8.2)
--- NOTE | 2020-05-14 10:39 | CT ---
EXAMINATION TYPE: CT abdomen pelvis w con DATE OF EXAM: 05/14/2020 COMPARISON: 05/18/2018 HISTORY: 60-year-old male generalized pelvic pain TECHNIQUE: Contiguous axial scanning of the abdomen and pelvis following administration of 100 ml Iso gordo 300 IV contrast. Delayed images through the kidneys and coronal/sagittal reconstructions perform ed. CT DLP: 2121.4 mGycm Automated exposure control for dose reduction was used. FINDINGS: Heart upper limits of normal size without pericardial effusion. Interstitial changes in the visualize d lower lungs described on the patient's recent CT chest of 05/11/2020. No pleural effusion. No focal liver lesion. No biliary ductal dilatation. Portal venous system is patent. Gallbladder, adrenal glands, spleen, and pancreas appear within normal limits. Small parapelvic cysts in both kidneys measuring up to 2.5 cm on the left. Symmetric uptake and excre tion of contrast from both kidneys. No dilated small bowel, free fluid, or free air. Normal appendix. No mesenteric or retroperitoneal ly mphadenopathy. Mild overall stool burden. No pericolonic inflammatory change. There is moderate bladder wall thickening. Prostate gland measures 4.5 cm wide, mildly enlarged. Ther e appear to be vasectomy clips. No abnormal fluid collection in the pelvis or pelvic lymphadenopathy. A couple left-sided pelvic phleboliths. Bones: Moderate degenerative change of the hips and SI joints. Facet arthropathy mid to lower lumbar spine with grade 1 anterolisthesis L4-L5. IMPRESSION: 1. MODERATE CIRCUMFERENTIAL BLADDER WALL THICKENING COULD REFLECT CHRONIC BLADDER WALL HYPERTROPHY OR CYSTITIS. CLINICALLY CORRELATE. 2. VASECTOMY CLIPS VISUALIZED. MILD STOOL BURDEN. 3. FACET ARTHROPATHY MID TO LOWER LUMBAR SPINE WITH DEGENERATIVE GRADE 1 ANTEROLISTHESIS AT L4-L5.
[2020-05-14] MEDS ORDERED: SUMAtriptan succinate 25 MG TAB PO STA (11:00)
[2020-05-14 11:11] LABS: Appearance,Urine C (Clear); Bilirubin,Urine Negative (Negative); Blood,Urine Negative (Negative); Color,Urine Yellow; Glucose,Urine (UA) Negative (Negative); Ketones,Urine Negative (Negative); Leukocyte Esterase,Urine Negative (Negative); Nitrite,Urine Negative (Negative); Protein,Urine Negative (Negative); Specific Gravity,Urine 1.016 (1.001-1.035); Urobilinogen,Urine <2.0 mg/dL (<2.0)
[2020-05-14] MEDS ORDERED: MAGNESIUM CITRATE 296 ML BOTTLE PO ONE (11:43)
[2020-05-14 11:57] VITALS: BP 155/79; PULSE 73; RESP 18
== END 2020-05-14 11:56 | disposition home or self-care (01) ==
LOC: EC 09:31
DX: R10.30 Lower abdominal pain, unspecified (principal); E78.5 Hyperlipidemia, unspecified; I10 Essential (primary) hypertension; J45.909 Unspecified asthma, uncomplicated; Z86.73 Personal history of transient ischemic attack (TIA), and cerebral infarction without residual deficits; Z86.16 Personal history of COVID-19; Z79.02 Long term (current) use of antithrombotics/antiplatelets; Z79.51 Long term (current) use of inhaled steroids
CPT/HCPCS: 36415; 80053; 82150; 83605; 83690; 85025; 81001; 74177; 99284; 96360; Q9967

== ENCOUNTER 2020-05-20 14:49 | Emergency (ER) | payer BC ==
[2020-05-20 15:05] VITALS: RESP 18; TEMP 98.9
[2020-05-20] MEDS ORDERED: FAMOTIDINE 20 MG/2 ML VIAL IV STA (16:18)
[2020-05-20] MEDS ORDERED: HYDROmorphone 1 MG/ML 1 ML SYRINGE IVP STA (16:18)
[2020-05-20] MEDS ORDERED: SODIUM CHLORIDE 0.9% 1,000 ML IV STA (16:18)
--- NOTE | 2020-05-20 16:21 | ED ---
General Adult HPI - General Chief complaint: Abdominal Pain Stated complaint: Abdominal Pain Time Seen by Provider: 05/20/20 15:59 Source: patient, RN notes reviewed Mode of arrival: wheelchair Limitations: no limitations - History of Present Illness Initial comments: Patient is a pleasant [age]-year-old male presenting to the emergency Department with complaints of abdominal discomfort. Onset of symptoms was around a month ago. Patient does have bad reflux and is on 2 medications for that. This feels somewhat different. Discomfort is upper abdomen. No radiation. A week ago patient did have lower abdominal discomfort however that has resolved. No chest pain. Patient has associated nausea. Food makes symptoms worse. No vomiting. No constipation or diarrhea.. No fevers. - Related Data Home Medications Medication Instructions Recorded Confirmed Atorvastatin Calcium [Lipitor] 20 mg PO HS 05/18/18 03/04/20 Escitalopram [Lexapro] 30 mg PO DAILY 05/18/18 03/04/20 Losartan Potassium 100 mg PO DAILY 05/18/18 03/04/20 Montelukast Sodium [Singulair] 10 mg PO DAILY 05/18/18 03/04/20 Multivit-Min/FA/Lycopen/Lutein 1 tab PO DAILY 05/18/18 03/04/20 [Centrum Silver Men Tablet] buPROPion XL [Wellbutrin XL] 300 mg PO HS 05/18/18 03/04/20 Gabapentin [Neurontin] 300 mg PO TID 01/03/20 03/04/20 Oxybutynin Chloride [Ditropan XL] 10 mg PO DAILY 01/03/20 03/04/20 buPROPion XL [Wellbutrin XL] 150 mg PO HS 01/03/20 03/04/20 ALPRAZolam [Xanax] 0.25 mg PO DAILY PRN 03/04/20 03/04/20 Budesonide/Formoterol Fumarate 2 puff INHALATION RT-BID 03/04/20 03/04/20 [Symbicort 160-4.5 Mcg Inhaler] Previous Rx's Medication Instructions Recorded Albuterol Inhaler [Ventolin Hfa 2 puff INHALATION RT-TID #1 inh 01/10/20 Inhaler] Ascorbic Acid [Vitamin C] 500 mg PO DAILY #21 tab 01/10/20 Cholecalciferol [Vitamin D3 (25 1,000 unit PO DAILY #30 tab 01/10/20 Mcg = 1000 Iu)] Famotidine [Pepcid] 20 mg PO DAILY #30 tab 01/10/20 Zinc Sulfate [Orazinc] 220 mg PO DAILY #30 cap 01/10/20 Clopidogrel [Plavix] 75 mg PO DAILY 30 Days #30 tab 01/20/20 Metoclopramide HCl [Reglan] 10 mg PO Q6HR PRN #15 tablet 05/20/20 Allergies Allergy/AdvReac Type Severity Reaction Status Date / Time aspirin Allergy Anaphylaxis Verified 05/20/20 15:05 ibuprofen [From Motrin] Allergy Anaphylaxis Verified 05/20/20 15:05 codeine AdvReac "dries Verified 05/20/20 15:05 system out" Review of Systems ROS Statement: Those systems with pertinent positive or pertinent negative responses have been documented in the HPI. ROS Other: All systems not noted in ROS Statement are negative. Constitutional: Denies: fever Eyes: Denies: eye pain ENT: Denies: ear pain Respiratory: Denies: cough, dyspnea Cardiovascular: Denies: chest pain Endocrine: Denies: fatigue Gastrointestinal: Reports: abdominal pain, nausea. Denies: vomiting Genitourinary: Denies: dysuria Musculoskeletal: Denies: back pain Skin: Denies: rash Neurological: Denies: weakness Past Medical History Past Medical History: Asthma, CVA/TIA, Hyperlipidemia, Hypertension, Pneumonia Additional Past Medical History / Comment(s): Covid + 01/05 History of Any Multi-Drug Resistant Organisms: MRSA Date of last positivie culture/infection: 11/12/15 MDRO Source:: stomach Past Surgical History: No Surgical Hx Reported Past Anesthesia/Blood Transfusion Reactions: No Reported Reaction Past Psychological History: Anxiety, Depression Smoking Status: Never smoker Past Alcohol Use History: None Reported Past Drug Use History: None Reported - Past Family History Mother History Unknown: Yes Father History Unknown: Yes General Exam Limitations: no limitations General appearance: alert, in no apparent distress Head exam: Present: normocephalic Eye exam: Present: normal appearance Neck exam: Present: normal inspection Respiratory exam: Present: normal lung sounds bilaterally Cardiovascular Exam: Present: regular rate, normal rhythm Expanded Peripheral pulses: 2+: Radial (R), Radial (L), Posterior Tibialis (R), Posterior Tibialis (L) GI/Abdominal exam: Present: soft. Absent: distended, tenderness, pulsatile mass Extremities exam: Present: normal inspection. Absent: pedal edema, calf tenderness Back exam: Present: normal inspection. Absent: tenderness Neurological exam: Present: alert Psychiatric exam: Present: normal affect, normal mood Skin exam: Present: normal color Course Vital Signs 05/20/20 15:01 Temperature 98.9 F Pulse Rate 75 Respiratory 18 Rate Blood Pressure 144/88 O2 Sat by Pulse 95 Oximetry EKG Findings - EKG Comments: EKG Findings:: Normal sinus rhythm 72. GA 166. QRS 98. QT 398. QTC 435. Normal axis. Normal QRS. No acute ST change. Medical Decision Making - Medical Decision Making Computed tomography scan was ordered however patient refused secondary to having one recently. This was reviewed. Patient reevaluated and resting comfortably in bed. Patient is frustrated regarding his symptoms. Patient and family states symptoms have been occurring since January. Patient has been seen multiple times at multiple emergency departments. Patient also has seen a GI doctor. There has been difficulty scheduling his scope secondary to him having covid infection And then on oxygen following that. Patient receptive to Reglan prescription. Patient also receptive to receiving further recommendations for follow-up for scope. - Lab Data Result diagrams: 05/20/20 16:20 05/20/20 16:20 Lab Results 05/20/20 05/20/20 05/20/20 Range/Units 16:20 16:20 16:20 WBC 6.7 (3.8-10.6) k/uL RBC 5.00 (4.30-5.90) m/uL Hgb 15.3 (13.0-17.5) gm/dL Hct 43.9 (39.0-53.0) % MCV 87.8 (80.0-100.0) fL MCH 30.6 (25.0-35.0) pg MCHC 34.9 (31.0-37.0) g/dL RDW 12.2 (11.5-15.5) % Plt Count 223 (150-450) k/uL MPV 7.4 Neutrophils % 63 % Lymphocytes % 22 % Monocytes % 11 % Eosinophils % 2 % Basophils % 1 % Neutrophils # 4.3 (1.3-7.7) k/uL Lymphocytes # 1.5 (1.0-4.8) k/uL Monocytes # 0.7 (0-1.0) k/uL Eosinophils # 0.1 (0-0.7) k/uL Basophils # 0.0 (0-0.2) k/uL PT 10.5 (9.0-12.0) sec INR 1.0 (<1.2) APTT 25.5 (22.0-30.0) sec Sodium 133 L (137-145) mmol/L Potassium 4.3 (3.5-5.1) mmol/L Chloride 100 (98-107) mmol/L Carbon Dioxide 25 (22-30) mmol/L Anion Gap 8 mmol/L BUN 18 (9-20) mg/dL Creatinine 1.42 H (0.66-1.25) mg/dL Est GFR (CKD-EPI)AfAm 62 (>60 ml/min/1.73 sqM) Est GFR (CKD-EPI)NonAf 53 (>60 ml/min/1.73 sqM) Glucose 94 (74-99) mg/dL Calcium 9.2 (8.4-10.2) mg/dL Total Bilirubin 0.6 (0.2-1.3) mg/dL AST 31 (17-59) U/L ALT 32 (4-49) U/L Alkaline Phosphatase 74 (38-126) U/L Troponin I (0.000-0.034) ng/mL Total Protein 6.8 (6.3-8.2) g/dL Albumin 4.4 (3.5-5.0) g/dL Amylase 47 (30-110) U/L Lipase 51 (23-300) U/L Urine Color Urine Appearance (Clear) Urine pH (5.0-8.0) Ur Specific [place] (1.001-1.035) Urine Protein (Negative) Urine Glucose (UA) (Negative) Urine Ketones (Negative) Urine Blood (Negative) Urine Nitrite (Negative) Urine Bilirubin (Negative) Urine Urobilinogen (<2.0) mg/dL Ur Leukocyte Esterase (Negative) 05/20/20 05/20/20 Range/Units 16:20 16:32 WBC (3.8-10.6) k/uL RBC (4.30-5.90) m/uL Hgb (13.0-17.5) gm/dL Hct (39.0-53.0) % MCV (80.0-100.0) fL MCH (25.0-35.0) pg MCHC (31.0-37.0) g/dL RDW (11.5-15.5) % Plt Count (150-450) k/uL MPV Neutrophils % % Lymphocytes % % Monocytes % % Eosinophils % % Basophils % % Neutrophils # (1.3-7.7) k/uL Lymphocytes # (1.0-4.8) k/uL Monocytes # (0-1.0) k/uL Eosinophils # (0-0.7) k/uL Basophils # (0-0.2) k/uL PT (9.0-12.0) sec INR (<1.2) APTT (22.0-30.0) sec Sodium (137-145) mmol/L Potassium (3.5-5.1) mmol/L Chloride (98-107) mmol/L Carbon Dioxide (22-30) mmol/L Anion Gap mmol/L BUN (9-20) mg/dL Creatinine (0.66-1.25) mg/dL Est GFR (CKD-EPI)AfAm (>60 ml/min/1.73 sqM) Est GFR (CKD-EPI)NonAf (>60 ml/min/1.73 sqM) Glucose (74-99) mg/dL Calcium (8.4-10.2) mg/dL Total Bilirubin (0.2-1.3) mg/dL AST (17-59) U/L ALT (4-49) U/L Alkaline Phosphatase (38-126) U/L Troponin I <0.012 (0.000-0.034) ng/mL Total Protein (6.3-8.2) g/dL Albumin (3.5-5.0) g/dL Amylase (30-110) U/L Lipase (23-300) U/L Urine Color Light Yellow Urine Appearance Clear (Clear) Urine pH 5.0 (5.0-8.0) Ur Specific [place] 1.012 (1.001-1.035) Urine Protein Negative (Negative) Urine Glucose (UA) Negative (Negative) Urine Ketones Negative (Negative) Urine Blood Negative (Negative) Urine Nitrite Negative (Negative) Urine Bilirubin Negative (Negative) Urine Urobilinogen <2.0 (<2.0) mg/dL Ur Leukocyte Esterase Negative (Negative) - Radiology Data Radiology results: report reviewed (Of L ultrasound is limited. No acute cholecystitis. Common bile duct within normal limits.), image reviewed (Abdominal x-ray reveals no acute process) Disposition Clinical Impression: Abdominal pain Disposition: HOME SELF-CARE Condition: Stable Instructions (If sedation given, give patient instructions): Abdominal Pain (ED) Additional Instructions: Please follow-up with primary care physician in the next couple days for recheck. Please also follow-up with GI or surgery, number provided. Return for increased pain, not tolerating oral intake, difficulty breathing or chest pain, worsening or changing symptoms or other concerns. Prescriptions: Metoclopramide HCl [Reglan] 10 mg PO Q6HR PRN #15 tablet PRN Reason: Nausea Is patient prescribed a controlled substance at d/c from ED?: No Referrals: Keyana Bishop DO [Primary Care Provider] - 1-2 days Noe Workman MD [STAFF PHYSICIAN] - 1-2 days Ricardo Davis MD [STAFF PHYSICIAN] - 1-2 days Time of Disposition: 18:09
[2020-05-20 16:37] LABS: Basophils % (A) 1 %; Eosinophils # (A) 0.1 k/uL (0-0.7); Eosinophils % (A) 2 %; HCT 43.9 % (39.0-53.0); HGB 15.3 gm/dL (13.0-17.5); Lymphocytes # (A) 1.5 k/uL (1.0-4.8); Lymphocytes % (A) 22 %; MCH 30.6 pg (25.0-35.0); MCHC 34.9 g/dL (31.0-37.0); MCV 87.8 fL (80.0-100.0); Mean Platelet Volume 7.4; Monocytes # (A) 0.7 k/uL (0-1.0); Monocytes % (A) 11 %; Neutrophils # (A) 4.3 k/uL (1.3-7.7); Neutrophils % (A) 63 %; Platelet Count 223 k/uL (150-450); RDW 12.2 % (11.5-15.5); WBC 6.7 k/uL (3.8-10.6)
[2020-05-20 16:42] LABS: Appearance,Urine Clear (Clear); Bilirubin,Urine Negative (Negative); Blood,Urine Negative (Negative); Color,Urine Light Yellow; Glucose,Urine (UA) Negative (Negative); Ketones,Urine Negative (Negative); Leukocyte Esterase,Urine Negative (Negative); Nitrite,Urine Negative (Negative); Protein,Urine Negative (Negative); Specific Gravity,Urine 1.012 (1.001-1.035); Urobilinogen,Urine <2.0 mg/dL (<2.0)
[2020-05-20 16:45] LABS: Albumin 4.4 g/dL (3.5-5.0); Calcium 9.2 mg/dL (8.4-10.2); Potassium 4.3 mmol/L (3.5-5.1); Total Bilirubin 0.6 mg/dL (0.2-1.3); Total Protein 6.8 g/dL (6.3-8.2)
[2020-05-20 16:54] LABS: Partial Thromboplastin Time 25.5 sec (22.0-30.0); Prothrombin Time 10.5 sec (9.0-12.0)
--- NOTE | 2020-05-20 17:19 | US ---
EXAMINATION TYPE: US gallbladder DATE OF EXAM: 05/20/2020 COMPARISON: NONE CLINICAL HISTORY: pain. abd pain and unable to eat much for 1 week EXAM MEASUREMENTS: Liver Length: 18.0 cm Gallbladder Wall: 0.2 cm CBD: 0.9 cm Right Kidney: 10.2 x 4.7 x 5.6 cm large habitus and gas limits exam Pancreas: not seen due to bowel gas Liver: intercostal imaging do to bowel gas, upper limits of normal for size Gallbladder: wnl Evidence for sonographic Combs's sign: no CBD: slightly dilated with no obvious signs of obstruction Right Kidney: wnl IMPRESSION: Visualization of parenchymal details is limited due to body habitus. There is no acute ch olecystitis. Common bile duct is within normal limits.
[2020-05-20 18:08] VITALS: BP 134/87; PULSE 69
--- NOTE | 2020-05-21 11:42 | XR ---
EXAMINATION TYPE: XR KUB DATE OF EXAM: 05/20/2020 COMPARISON: NONE HISTORY: Pain TECHNIQUE: One view abdominal series FINDINGS: Case apparently was not dictated on 05/20/2020 and is presented to me on 05/21/2020 at 11:39 AM. Basilar subsegmental consolidation and pleural thickening on the right. Hypertrophic change of the sp ine. Bowel gas pattern nonspecific. Calcifications in the pelvis likely vascular. Severe arthropathy of the hips. IMPRESSION: 1. Nonspecific abdomen. 2. Basilar patchy densities could be chronic correlate clinically to exclude infiltrate.
== END 2020-05-20 18:42 | disposition home or self-care (01) ==
LOC: EC 14:49
DX: R10.9 Unspecified abdominal pain (principal); E78.5 Hyperlipidemia, unspecified; I10 Essential (primary) hypertension; J45.909 Unspecified asthma, uncomplicated; K21.9 Gastro-esophageal reflux disease without esophagitis; F32.9 Major depressive disorder, single episode, unspecified; F41.9 Anxiety disorder, unspecified; Z79.02 Long term (current) use of antithrombotics/antiplatelets; Z79.51 Long term (current) use of inhaled steroids; Z79.899 Other long term (current) drug therapy; Z86.16 Personal history of COVID-19; Z86.73 Personal history of transient ischemic attack (TIA), and cerebral infarction without residual deficits
CPT/HCPCS: 36415; 93005; 80053; 82150; 83690; 84484; 85025; 85610; 85730; 81003; 74018; 76705; 99284; 96374; 96375; 96361; J1170

== ENCOUNTER 2020-09-23 16:24 | Emergency (ER) | payer BC ==
[2020-09-23 16:38] VITALS: TEMP 98.5
[2020-09-23] MEDS ORDERED: HYDROcodone/APAP 5-325MG 1 EACH TAB PO STA (16:54)
--- NOTE | 2020-09-23 17:38 | XR ---
EXAMINATION TYPE: XR elbow complete LT DATE OF EXAM: 09/23/2020 COMPARISON: None HISTORY: Fall, pain TECHNIQUE: 3 view left elbow FINDINGS: Anterior fat pad is normal. No elevation of posterior fat pad is evident. A large posterior olecranon spur is present. There appears to be an ossification within the triceps tendon region post erior to the distal humerus. There may be a prior medial distal humeral fracture with nonunion. Degen erative spurring is noted at the radial head. IMPRESSION: 1. 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 2. Tendon calcinosis posterior elbow. 3. No acute osseous abnormality. Follow up exams can be performed 7-10 days from acute trauma for con tinued pain.
--- NOTE | 2020-09-23 18:12 | ED ---
Upper Extremity HPI - General Chief Complaint: Extremity Injury, Upper Stated Complaint: Broken arm Time Seen by Provider: 09/23/20 16:41 Source: patient Mode of arrival: ambulatory Limitations: no limitations - History of Present Illness Initial Comments: Patient is a 60-year-old male presenting to the emergency Department with complaints of left elbow pain after he tripped and fell today. He states he tripped over a cord at his house and ended up landing on his left elbow. He does admit to a previous elbow fracture about 40 years ago in the same left elbow. He never had it looked at but is fairly certain it was fractured. He denies hitting his head, denies any other injuries from this fall today. - Related Data Home Medications Medication Instructions Recorded Confirmed Atorvastatin Calcium [Lipitor] 20 mg PO HS 05/18/18 05/20/20 Escitalopram [Lexapro] 30 mg PO DAILY 05/18/18 05/20/20 Losartan Potassium 100 mg PO DAILY 05/18/18 05/20/20 buPROPion XL [Wellbutrin XL] 300 mg PO HS 05/18/18 05/20/20 Oxybutynin Chloride [Ditropan XL] 10 mg PO DAILY 01/03/20 05/20/20 buPROPion XL [Wellbutrin XL] 150 mg PO HS 01/03/20 05/20/20 Budesonide/Formoterol Fumarate 2 puff INHALATION RT-BID 03/04/20 05/20/20 [Symbicort 160-4.5 Mcg Inhaler] Esomeprazole Magnesium 40 mg PO BID 05/20/20 05/20/20 Primidone [Mysoline] 50 mg PO HS 05/20/20 05/20/20 SUMAtriptan succinate [Imitrex] 25 mg PO DAILY PRN 05/20/20 05/20/20 hydroCHLOROthiazide [Hydrodiuril] 25 mg PO DAILY 05/20/20 05/20/20 Previous Rx's Medication Instructions Recorded Ascorbic Acid [Vitamin C] 500 mg PO DAILY #21 tab 01/10/20 Cholecalciferol [Vitamin D3 (25 1,000 unit PO DAILY #30 tab 01/10/20 Mcg = 1000 Iu)] Famotidine [Pepcid] 20 mg PO DAILY #30 tab 01/10/20 Clopidogrel [Plavix] 75 mg PO DAILY 30 Days #30 tab 01/20/20 Metoclopramide HCl [Reglan] 10 mg PO Q6HR PRN #15 tablet 05/20/20 Allergies Allergy/AdvReac Type Severity Reaction Status Date / Time aspirin Allergy Anaphylaxis Verified 09/23/20 16:37 ibuprofen [From Motrin] Allergy Anaphylaxis Verified 09/23/20 16:37 codeine AdvReac "dries Verified 09/23/20 16:37 system out" Review of Systems ROS Statement: Those systems with pertinent positive or pertinent negative responses have been documented in the HPI. ROS Other: All systems not noted in ROS Statement are negative. Past Medical History Past Medical History: Asthma, CVA/TIA, Hyperlipidemia, Hypertension, Pneumonia Additional Past Medical History / Comment(s): Covid + 01/05 History of Any Multi-Drug Resistant Organisms: MRSA Date of last positivie culture/infection: 11/12/15 MDRO Source:: stomach Past Surgical History: No Surgical Hx Reported Past Anesthesia/Blood Transfusion Reactions: No Reported Reaction Past Psychological History: Anxiety, Depression Smoking Status: Never smoker Past Alcohol Use History: None Reported Past Drug Use History: None Reported - Past Family History Mother History Unknown: Yes Father History Unknown: Yes General Exam - General Exam Comments Initial Comments: GENERAL: Patient is well-developed and well-nourished. Patient is nontoxic and in no acute distress. HEAD: Atraumatic, normocephalic. EYES: Pupils equal round and reactive to light, extraocular movements intact, sclera anicteric, conjunctiva are normal. Eyelids were unremarkable. NECK: Normal range of motion, supple without lymphadenopathy or JVD. No neck pain on palpation. LUNGS: Unlabored respirations. Breath sounds clear to auscultation bilaterally and equal. No wheezes rales or rhonchi. HEART: Regular rate and rhythm without murmurs, rubs or gallops. ABDOMEN: Soft, nontender, normoactive bowel sounds. No guarding, no rebound. No masses appreciated. MUSCULOSKELETAL: Patient has pain with palpation over the lateral aspect of the left elbow, he has painful active range of motion. He some mild swelling noted. Neurovascular intact. 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 No clubbing or cyanosis. NEUROLOGICAL: Patient is alert and oriented x 3. SKIN: Warm, Dry, normal turgor, no rashes or lesions noted. Limitations: no limitations Course Vital Signs 09/23/20 16:35 Temperature 98.5 F Pulse Rate 80 Respiratory 20 Rate Blood Pressure 141/74 O2 Sat by Pulse 98 Oximetry Procedures - Orthopedic Splinting/Casting Injury #1 Side: left Upper Extremity Injury Location: elbow Upper Extremity Immobilizer: sling/shoulder immobilizer Medical Decision Making - Medical Decision Making Patient is a 60-year-old male here with left elbow pain after he fell on it today. X-rays the left elbow today showed a suspected old nonunion fracture of the distal medial humerus, tendon calcification of the posterior elbow, no acute osseous abnormality seen today. I did recommend follow-up in 7-10 days for continued pain. Is given [place] for pain today. I did put him in a sling and recommended following up with orthopedics. The has seen Dr. Bradford in the past and wishes to go see him. He shouldn't is stable for discharge. Recommended ice to the area, wear sling for support. Patient is in agreement with this plan of care. Case discussed with Dr. Galindo. Disposition Clinical Impression: Left elbow pain Disposition: HOME SELF-CARE Condition: Stable Instructions (If sedation given, give patient instructions): Elbow Sprain (ED) Additional Instructions: Please return to the Emergency Department if symptoms worsen or any other con cerns. Recommend Tylenol for discomfort, ice to the elbow. Wear sling for comfort and support. Least follow up with orthopedics as discussed. Is patient prescribed a controlled substance at d/c from ED?: No Referrals: Keyana Bishop DO [Primary Care Provider] - 1-2 days Oscar Bradford DO [Doctor of Osteopathic Medicine] - 1-2 days Time of Disposition: 18:11
[2020-09-23 18:18] VITALS: BP 138/79; PULSE 78; RESP 16
== END 2020-09-23 18:18 | disposition home or self-care (01) ==
LOC: EC 16:24
DX: M25.522 Pain in left elbow (principal); J45.909 Unspecified asthma, uncomplicated; E78.5 Hyperlipidemia, unspecified; I10 Essential (primary) hypertension; F32.9 Major depressive disorder, single episode, unspecified; Z86.73 Personal history of transient ischemic attack (TIA), and cerebral infarction without residual deficits; W01.0XXA Fall on same level from slipping, tripping and stumbling without subsequent striking against object, initial encounter; Y92.098 Other place in other non-institutional residence as the place of occurrence of the external cause
CPT/HCPCS: 99283

== ENCOUNTER 2020-12-11 19:21 | Emergency (ER) | payer BC ==
[2020-12-11 19:41] VITALS: BP 148/86; RESP 18; TEMP 99.2
[2020-12-11] MEDS ORDERED: MAG HYDROX/AL HYDROX/SIMETH 30 ML, LIDOCAINE VISCOUS 30 ML, diphenhydrAMINE ELIXIR 75 M... PO STA ×4 (20:28)
[2020-12-11] MEDS ORDERED: ACYCLOVIR 400 MG/10 ML CUP PO ONE (21:27)
--- NOTE | 2020-12-11 21:29 | ED ---
General Adult HPI - General Chief complaint: Dental/Oral Stated complaint: Mouth Pain Time Seen by Provider: 12/11/20 19:43 Source: patient Mode of arrival: ambulatory - History of Present Illness Initial comments: 60 year-old male patient presents to the emergency department for evaluation for sores in his mouth. Patient states that sores are along his tongue and the right cheek. States that symptoms started about three days ago. He did use canker sore medication tonight without relief. He denies any fever or chills. Denies any difficulties with eating or drinking. Denies any throat pain or difficulty with swallowing. Does not follow any particularly special diet. Only new medication is xarelto which he started about a month and a half ago. He is taking it after developing DVT to the left leg and PE after a surgical procedure in early October. He also developed Afib during his hospitalization. Patient denies any recent rash, cough, shortness of breath, chest pain, abdominal pain, nausea, vomiting, diarrhea, constipation, back pain, numbness, tingling, dizziness, weakness, hematuria, dysuria, urinary urgency, urinary frequency, headache, visual changes, or any other complaints. - Related Data Home Medications Medication Instructions Recorded Confirmed Atorvastatin Calcium [Lipitor] 20 mg PO HS 05/18/18 05/20/20 Escitalopram [Lexapro] 30 mg PO DAILY 05/18/18 05/20/20 Losartan Potassium 100 mg PO DAILY 05/18/18 05/20/20 buPROPion XL [Wellbutrin XL] 300 mg PO HS 05/18/18 05/20/20 Oxybutynin Chloride [Ditropan XL] 10 mg PO DAILY 01/03/20 05/20/20 buPROPion XL [Wellbutrin XL] 150 mg PO HS 01/03/20 05/20/20 Budesonide/Formoterol Fumarate 2 puff INHALATION RT-BID 03/04/20 05/20/20 [Symbicort 160-4.5 Mcg Inhaler] Esomeprazole Magnesium 40 mg PO BID 05/20/20 05/20/20 Primidone [Mysoline] 50 mg PO HS 05/20/20 05/20/20 SUMAtriptan succinate [Imitrex] 25 mg PO DAILY PRN 05/20/20 05/20/20 hydroCHLOROthiazide [Hydrodiuril] 25 mg PO DAILY 05/20/20 05/20/20 Previous Rx's Medication Instructions Recorded Ascorbic Acid [Vitamin C] 500 mg PO DAILY #21 tab 01/10/20 Cholecalciferol [Vitamin D3 (25 1,000 unit PO DAILY #30 tab 01/10/20 Mcg = 1000 Iu)] Famotidine [Pepcid] 20 mg PO DAILY #30 tab 01/10/20 Clopidogrel [Plavix] 75 mg PO DAILY 30 Days #30 tab 01/20/20 Metoclopramide HCl [Reglan] 10 mg PO Q6HR PRN #15 tablet 05/20/20 Acyclovir 400 mg PO TID #21 tablet 12/11/20 Allergies Allergy/AdvReac Type Severity Reaction Status Date / Time aspirin Allergy Anaphylaxis Verified 12/11/20 19:41 ibuprofen [From Motrin] Allergy Anaphylaxis Verified 12/11/20 19:41 codeine AdvReac "dries Verified 12/11/20 19:41 system out" Review of Systems ROS Statement: Those systems with pertinent positive or pertinent negative responses have been documented in the HPI. ROS Other: All systems not noted in ROS Statement are negative. Past Medical History Past Medical History: Asthma, CVA/TIA, Hyperlipidemia, Hypertension, Pneumonia Additional Past Medical History / Comment(s): Covid + 01/05 History of Any Multi-Drug Resistant Organisms: MRSA Date of last positivie culture/infection: 11/12/15 MDRO Source:: stomach Past Surgical History: Orthopedic Surgery Past Anesthesia/Blood Transfusion Reactions: No Reported Reaction Past Psychological History: Anxiety, Depression Smoking Status: Never smoker Past Alcohol Use History: None Reported Past Drug Use History: None Reported - Past Family History Mother History Unknown: Yes Father History Unknown: Yes General Exam General appearance: alert, in no apparent distress, other (This is a well- developed, well-nourished adult male patient in no acute distress. Vital signs upon presentation are temperature 99.2F, pulse 69, respirations 18, blood pressure 148/86, pulse ox 98% on room air.) ENT exam: Present: mucous membranes moist, other (There are ulcerated lesions with white base noted to the right lateral aspect of the tongue. Blister noted to the right bucchal mucosa. No evidence for bleeding from the lesions.). Absent: normal oropharynx Respiratory exam: Present: normal lung sounds bilaterally. Absent: respiratory distress, wheezes, rales, rhonchi, stridor Cardiovascular Exam: Present: regular rate, normal rhythm, normal heart sounds. Absent: systolic murmur, diastolic murmur, rubs, gallop, clicks Neurological exam: Present: alert, oriented X3, CN II-XII intact Psychiatric exam: Present: normal affect, normal mood Skin exam: Present: warm, dry, intact, normal color. Absent: rash Course Vital Signs 12/11/20 12/11/20 19:38 21:50 Temperature 99.2 F Pulse Rate 69 72 Respiratory 18 18 Rate Blood Pressure 148/86 O2 Sat by Pulse 98 92 L Oximetry Medical Decision Making - Medical Decision Making 60-year-old male patient presents to the emergency department today for evaluation of sores in his mouth. Physical examination did reveal ulcerated lesions to the right lateral aspect of the tongue, white base. Blister noted to the right bucchal mucosa. Only new medication is xarelto which does have a side effect of oral ulcers and sores with 1% incidence. After we discussed possibili ty of a virus he did recall that his daughter had oral sores and he did eat food after her the other day before his lesions developed. Due to patient's high risk status with DVT and PE we will continue to Xarelto at this time. 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 We will start antiviral medication for possibility of virus causing the lesions. We'll also give bottle of Magic mouthwash to be used every 6 hours at home for pain relief. He'll be discharged to follow-up with the primary care physician for recheck in 1-2 days. Return parameters were discussed in detail. He verbalizes understanding and agrees with this plan. Case discussed with my attending Dr. Whalen. Disposition Clinical Impression: Canker sores oral Disposition: HOME SELF-CARE Condition: Good Instructions (If sedation given, give patient instructions): Canker Sores (ED) Additional Instructions: Complete viral medication as directed. 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 Return to the emergency department for any new, worsening, or concerning symptoms. Prescriptions: Acyclovir 400 mg PO TID #21 tablet Is patient prescribed a controlled substance at d/c from ED?: No Referrals: Keyana Bishop DO [Primary Care Provider] - 1-2 days Time of Disposition: 21:29
[2020-12-11 21:51] VITALS: PULSE 72
== END 2020-12-11 21:51 | disposition home or self-care (01) ==
LOC: EC 19:21
DX: K12.0 Recurrent oral aphthae (principal); I10 Essential (primary) hypertension; E78.5 Hyperlipidemia, unspecified; J45.909 Unspecified asthma, uncomplicated; F32.9 Major depressive disorder, single episode, unspecified; F41.9 Anxiety disorder, unspecified; Z79.899 Other long term (current) drug therapy; Z88.5 Allergy status to narcotic agent; Z88.6 Allergy status to analgesic agent
CPT/HCPCS: 99282

== ENCOUNTER 2020-12-15 09:19 | Emergency (ER) | payer BC ==
[2020-12-15 10:08] VITALS: BP 124/75; PULSE 63; RESP 18; TEMP 98.4
--- NOTE | 2020-12-15 13:09 | ED ---
ENT HPI - General Chief complaint: ENT Stated complaint: sores in mouth Source: patient Mode of arrival: ambulatory Limitations: no limitations - History of Present Illness Initial comments: 60-year-old male with past medical history of CVA, asthma, hypertension emergency department with sores noted to the patient's mouth and face. He was seen in the emergency department on the first. Diagnosed with aphthous ulcers. He is given a prescription for acyclovir and Magic mouthwash. States he's been using them as directed without improvement in his symptoms. Patient has now developed right ear pain and a headache. No facial droop. Denies any fevers or chills. No neck stiffness or pain. No other alleviating, precipitating or modifying factors - Related Data Home Medications Medication Instructions Recorded Confirmed Atorvastatin Calcium [Lipitor] 20 mg PO HS 05/18/18 05/20/20 Escitalopram [Lexapro] 30 mg PO DAILY 05/18/18 05/20/20 Losartan Potassium 100 mg PO DAILY 05/18/18 05/20/20 buPROPion XL [Wellbutrin XL] 300 mg PO HS 05/18/18 05/20/20 Oxybutynin Chloride [Ditropan XL] 10 mg PO DAILY 01/03/20 05/20/20 buPROPion XL [Wellbutrin XL] 150 mg PO HS 01/03/20 05/20/20 Budesonide/Formoterol Fumarate 2 puff INHALATION RT-BID 03/04/20 05/20/20 [Symbicort 160-4.5 Mcg Inhaler] Esomeprazole Magnesium 40 mg PO BID 05/20/20 05/20/20 Primidone [Mysoline] 50 mg PO HS 05/20/20 05/20/20 SUMAtriptan succinate [Imitrex] 25 mg PO DAILY PRN 05/20/20 05/20/20 hydroCHLOROthiazide [Hydrodiuril] 25 mg PO DAILY 05/20/20 05/20/20 Previous Rx's Medication Instructions Recorded Ascorbic Acid [Vitamin C] 500 mg PO DAILY #21 tab 01/10/20 Cholecalciferol [Vitamin D3 (25 1,000 unit PO DAILY #30 tab 01/10/20 Mcg = 1000 Iu)] Famotidine [Pepcid] 20 mg PO DAILY #30 tab 01/10/20 Clopidogrel [Plavix] 75 mg PO DAILY 30 Days #30 tab 01/20/20 Metoclopramide HCl [Reglan] 10 mg PO Q6HR PRN #15 tablet 05/20/20 Acyclovir 400 mg PO TID #21 tablet 12/11/20 Lidocaine 4% Cream [Lmx 4] 1 applic TOPICAL BID #30 gm 12/15/20 predniSONE [Deltasone] 60 mg PO DAILY #7 tab 12/15/20 valACYclovir HCL 1,000 mg PO TID #21 tab 12/15/20 Allergies Allergy/AdvReac Type Severity Reaction Status Date / Time aspirin Allergy Anaphylaxis Verified 12/15/20 10:08 ibuprofen [From Motrin] Allergy Anaphylaxis Verified 12/15/20 10:08 codeine AdvReac "dries Verified 12/15/20 10:08 system out" Review of Systems ROS Statement: Those systems with pertinent positive or pertinent negative responses have been documented in the HPI. ROS Other: All systems not noted in ROS Statement are negative. Past Medical History Past Medical History: Asthma, CVA/TIA, Hyperlipidemia, Hypertension, Pneumonia Additional Past Medical History / Comment(s): Covid + 01/05 History of Any Multi-Drug Resistant Organisms: MRSA Date of last positivie culture/infection: 11/12/15 MDRO Source:: stomach Past Surgical History: Orthopedic Surgery Additional Past Surgical History / Comment(s): left hip replacement Past Anesthesia/Blood Transfusion Reactions: No Reported Reaction Past Psychological History: Anxiety, Depression Smoking Status: Never smoker Past Alcohol Use History: None Reported Past Drug Use History: None Reported - Past Family History Mother History Unknown: Yes Father History Unknown: Yes General Exam Limitations: no limitations General appearance: alert, in no apparent distress Head exam: Present: atraumatic, normocephalic, other (vesiclar rash extending from midline to right side of jaw, right cheek, up to right ear) Eye exam: Present: normal appearance, PERRL, EOMI. Absent: scleral icterus, conjunctival injection, periorbital swelling ENT exam: Present: other (ulceration right ditsal tongue measuring 1.5x 1.0 cm. right external ear canal positive for vesicular lesions. TM injected. No facial nerve paralysis. ) Neck exam: Present: normal inspection. Absent: tenderness, meningismus, lymphadenopathy Respiratory exam: Present: normal lung sounds bilaterally. Absent: respiratory distress, wheezes, rales, rhonchi, stridor Cardiovascular Exam: Present: regular rate, normal rhythm, normal heart sounds. Absent: systolic murmur, diastolic murmur, rubs, gallop, clicks GI/Abdominal exam: Present: soft, normal bowel sounds. Absent: distended, tenderness, guarding, rebound, rigid Extremities exam: Present: normal inspection, full ROM, normal capillary refill. Absent: tenderness, pedal edema, joint swelling, calf tenderness Back exam: Present: normal inspection Neurological exam: Present: alert, oriented X3, CN II-XII intact Psychiatric exam: Present: normal affect, normal mood Skin exam: Present: warm, dry, intact, normal color. Absent: rash Course Vital Signs 12/15/20 12/15/20 10:02 13:46 Temperature 98.4 F 98.4 F Pulse Rate 63 63 Respiratory 18 18 Rate Blood Pressure 124/75 124/75 O2 Sat by Pulse 95 95 Oximetry Medical Decision Making - Medical Decision Making Upon arrival patient was placed into hallway 26. Evaluation does demonstrate varicella zoster involving the mandibular distribution include the inner ear. No signs of abnormal neuro exam or Margarita Galindo. I did discuss diagnosis, and treatment options. Recommended the patient start steroids, valacyclovir and lidocaine cream for the pain to his face. Patient is to stop taking acyclovir which was previously prescribed as it is the incorrect dose for varicella. Patient understood this. He is to follow-up with his primary care physician for reevaluation. Return to the emergency room for any worsening symptoms. Patient was discharged home in stable condition Disposition Clinical Impression: Herpes zoster Disposition: HOME SELF-CARE Condition: Stable Instructions (If sedation given, give patient instructions): Shingles (ED) Additional Instructions: Please follow up with your PCP in 2-4 days. You can continue using the mouthwash. STOP using the acyclovir. Return to the ED for any new or worsening symptoms. Prescriptions: predniSONE [Deltasone] 60 mg PO DAILY #7 tab Lidocaine 4% Cream [Lmx 4] 1 applic TOPICAL BID #30 gm valACYclovir HCL 1,000 mg PO TID #21 tab Is patient prescribed a controlled substance at d/c from ED?: No Referrals: Keyana Bishop DO [Primary Care Provider] - 1-2 days Time of Disposition: 13:09
== END 2020-12-15 13:47 | disposition home or self-care (01) ==
LOC: EC 09:19
DX: H92.01 Otalgia, right ear (principal); R51.9 Headache, unspecified; B02.9 Zoster without complications; K13.70 Unspecified lesions of oral mucosa; J45.909 Unspecified asthma, uncomplicated; I10 Essential (primary) hypertension; E78.5 Hyperlipidemia, unspecified; Z79.899 Other long term (current) drug therapy; Z79.51 Long term (current) use of inhaled steroids; Z88.6 Allergy status to analgesic agent; Z88.5 Allergy status to narcotic agent; Z86.73 Personal history of transient ischemic attack (TIA), and cerebral infarction without residual deficits; Z86.16 Personal history of COVID-19
CPT/HCPCS: 99283

== ENCOUNTER 2021-03-24 14:16 | Emergency (ER) | payer BC ==
[2021-03-24 14:31] VITALS: BP 118/65; TEMP 98.5
--- NOTE | 2021-03-24 15:09 | XR ---
EXAMINATION TYPE: XR chest 2V DATE OF EXAM: 03/24/2021 COMPARISON: Chest x-ray March 04, 2020. Chest CT May 11, 2020. HISTORY: Cough and difficulty in breathing. TECHNIQUE: Frontal and lateral views of the chest are obtained. FINDINGS: There is chronic parenchymal changes bilaterally redemonstrated without suspicious new foc al air space opacity, pleural effusion, or pneumothorax seen. Cardiomegaly again seen. The osseous structures are intact. IMPRESSION: Cardiomegaly and chronic parenchymal changes without acute pulmonary process.
[2021-03-24] MEDS ORDERED: IPRATROPIUM-ALBUTEROL 3 ML NEB INHALATION STA (15:33)
[2021-03-24] MEDS ORDERED: cefTRIAXone 1,000 MG VIAL (IM USE) IM STA (16:22)
[2021-03-24] MEDS ORDERED: methylPREDNISolone SOD SUCCI 125 MG/2 ML VIAL IM ONE (16:22)
--- NOTE | 2021-03-24 16:24 | ED ---
URI HPI - General Chief Complaint: Upper Respiratory Infection Stated Complaint: GREGORIA Time Seen by Provider: 03/24/21 14:32 Source: patient, RN notes reviewed Mode of arrival: ambulatory Limitations: no limitations - History of Present Illness Initial Comments: 60-year-old male presents emergency Department with chief complaint of cough congestion. Patient states symptoms of the present for last to 3 days. Patient states he had over the last year. Patient's concerned about his current symptoms. Patient has known asthma states he does see Dr. Whaley. He has no increased work of breathing at this time. No chest pain he states he felt that he had some fevers and chills. Patient denies any complaints. Patient has no GI symptoms no back pain no flank pain. - Related Data Home Medications Medication Instructions Recorded Confirmed Atorvastatin Calcium [Lipitor] 20 mg PO HS 05/18/18 05/20/20 Escitalopram [Lexapro] 30 mg PO DAILY 05/18/18 05/20/20 Losartan Potassium 100 mg PO DAILY 05/18/18 05/20/20 buPROPion XL [Wellbutrin XL] 300 mg PO HS 05/18/18 05/20/20 Oxybutynin Chloride [Ditropan XL] 10 mg PO DAILY 01/03/20 05/20/20 buPROPion XL [Wellbutrin XL] 150 mg PO HS 01/03/20 05/20/20 Budesonide/Formoterol Fumarate 2 puff INHALATION RT-BID 03/04/20 05/20/20 [Symbicort 160-4.5 Mcg Inhaler] Esomeprazole Magnesium 40 mg PO BID 05/20/20 05/20/20 Primidone [Mysoline] 50 mg PO HS 05/20/20 05/20/20 SUMAtriptan succinate [Imitrex] 25 mg PO DAILY PRN 05/20/20 05/20/20 hydroCHLOROthiazide [Hydrodiuril] 25 mg PO DAILY 05/20/20 05/20/20 Previous Rx's Medication Instructions Recorded Ascorbic Acid [Vitamin C] 500 mg PO DAILY #21 tab 01/10/20 Cholecalciferol [Vitamin D3 (25 1,000 unit PO DAILY #30 tab 01/10/20 Mcg = 1000 Iu)] Famotidine [Pepcid] 20 mg PO DAILY #30 tab 01/10/20 Clopidogrel [Plavix] 75 mg PO DAILY 30 Days #30 tab 01/20/20 Metoclopramide HCl [Reglan] 10 mg PO Q6HR PRN #15 tablet 05/20/20 Acyclovir 400 mg PO TID #21 tablet 12/11/20 Lidocaine 4% Cream [Lmx 4] 1 applic TOPICAL BID #30 gm 12/15/20 predniSONE [Deltasone] 60 mg PO DAILY #7 tab 12/15/20 valACYclovir HCL 1,000 mg PO TID #21 tab 12/15/20 Azithromycin [Zithromax Z-pack (6 0 mg PO DIRECTED #1 packet 03/24/21 tabs)] predniSONE 50 mg PO DAILY #5 tab 03/24/21 Allergies Allergy/AdvReac Type Severity Reaction Status Date / Time aspirin Allergy Anaphylaxis Verified 03/24/21 14:28 ibuprofen [From Motrin] Allergy Anaphylaxis Verified 03/24/21 14:28 codeine AdvReac "dries Verified 03/24/21 14:28 system out" Review of Systems ROS Statement: Those systems with pertinent positive or pertinent negative responses have been documented in the HPI. ROS Other: All systems not noted in ROS Statement are negative. Past Medical History Past Medical History: Asthma, CVA/TIA, Hyperlipidemia, Hypertension, Pneumonia Additional Past Medical History / Comment(s): Covid + 01/05 History of Any Multi-Drug Resistant Organisms: MRSA Date of last positivie culture/infection: 11/12/15 MDRO Source:: stomach Past Surgical History: Joint Replacement, Orthopedic Surgery Additional Past Surgical History / Comment(s): left hip replacement Past Anesthesia/Blood Transfusion Reactions: No Reported Reaction Past Psychological History: Anxiety, Depression Smoking Status: Never smoker Past Alcohol Use History: None Reported Past Drug Use History: None Reported - Past Family History Mother History Unknown: Yes Father History Unknown: Yes General Exam Limitations: no limitations General appearance: alert, in no apparent distress Head exam: Present: atraumatic, normocephalic, normal inspection Eye exam: Present: normal appearance, PERRL, EOMI. Absent: scleral icterus, conjunctival injection, periorbital swelling ENT exam: Present: normal exam, mucous membranes moist Neck exam: Present: normal inspection. Absent: tenderness, meningismus, lymphadenopathy Respiratory exam: Present: decreased breath sounds. Absent: normal lung sounds bilaterally, respiratory distress, wheezes, rales, rhonchi, stridor Cardiovascular Exam: Present: regular rate, normal rhythm, normal heart sounds. Absent: systolic murmur, diastolic murmur, rubs, gallop, clicks GI/Abdominal exam: Present: soft, normal bowel sounds. Absent: distended, tenderness, guarding, rebound, rigid Course Vital Signs 03/24/21 14:28 Temperature 98.5 F Pulse Rate 59 L Respiratory 18 Rate Blood Pressure 118/65 O2 Sat by Pulse 95 Oximetry Medical Decision Making - Medical Decision Making Patient was given breathing treatment, states he feels greatly improved patient has negative COVID-19, negative chest x-ray negative influenza. Patient follow- up with his PCP, optometric assistant and return for worsening changes symptoms. - Lab Data Lab Results 03/24/21 03/24/21 Range/Units 15:06 15:06 Coronavirus (PCR) Not Detected (Not Detectd) Influenza Type A RNA Not Detected (Not Detectd) Influenza Type B (PCR) Not Detected (Not Detectd) Disposition Clinical Impression: Asthmatic bronchitis Disposition: HOME SELF-CARE Condition: Stable Instructions (If sedation given, give patient instructions): Upper Respiratory Infection (ED) Additional Instructions: Please return to the Emergency Department if symptoms worsen or any other concerns. Prescriptions: predniSONE 50 mg PO DAILY #5 tab Azithromycin [Zithromax Z-pack (6 tabs)] 0 mg PO DIRECTED #1 packet Is patient prescribed a controlled substance at d/c from ED?: No Referrals: Keyana Bishop DO [Primary Care Provider] - 1-2 days Time of Disposition: 16:24
[2021-03-24 16:45] VITALS: PULSE 53; RESP 18
== END 2021-03-24 17:00 | disposition home or self-care (01) ==
LOC: EC 14:16
DX: J45.909 Unspecified asthma, uncomplicated (principal); E78.5 Hyperlipidemia, unspecified; I10 Essential (primary) hypertension; Z86.73 Personal history of transient ischemic attack (TIA), and cerebral infarction without residual deficits; F41.9 Anxiety disorder, unspecified; F32.A Depression, unspecified; Z79.899 Other long term (current) drug therapy
CPT/HCPCS: 94640; 87502; 87635; 71046; 99283; 96372 ×2; J2930; J0696

== ENCOUNTER 2022-02-09 18:49 | Emergency (ER) | payer BC ==
[2022-02-09 19:13] VITALS: TEMP 97.3
[2022-02-09 19:53] VITALS: RESP 15
--- NOTE | 2022-02-09 19:56 | CT ---
EXAMINATION TYPE: CT brain cspine wo con CT DLP: 2091.4 mGycm, Automated exposure control for dose reduction was used. DATE OF EXAM: 02/09/2022 7:27 PM COMPARISON: 01/16/2022 CLINICAL INDICATION:Male, 61 years old with history of Fall, on thinners; Patient fell three feet off a chair. Patient is on blood thinners. TECHNIQUE: Brain: Multiple axial CT images of the brain were obtained without IV contrast. Cspine: Axial CT images from the skull base to the inferior aspect of T2 we obtained without intraven ous contrast. Coronal and sagittal reformatted images were also reviewed. FINDINGS: Brain: Extra-axial spaces: No abnormal extra-axial fluid collections. Ventricular system: Within normal limits Cerebral parenchyma: No acute intraparenchymal hemorrhage or mass effect. The andrade-white junction is well differentiated. Cerebellum: Unremarkable. Mass effect: No evidence of midline shift. Intracranial vasculature: unremarkable Soft tissues: Normal. Calvarium/osseous structures: No depressed skull fracture. Paranasal sinuses and mastoid air cells: Clear. Visualized orbits: Orbital contents are intact. Cervical spine: Fracture: None. Osseous structures: Multilevel degenerative disc disease changes with endplate spurring and disc oste ophyte complex's. Vertebral alignment: Within normal limits. Spinal canal/Neural Foramina: No evidence of significant spinal canal narrowing. No evidence for sign ificant neural foraminal stenosis. Neck soft tissues: Prevertebral soft tissues are within normal limits. Other: The airway is patent. The lung apices are clear. IMPRESSION: 1. No acute intracranial process. 2. No evidence of cervical spine fracture. 3. Mild multilevel degenerative disc disease.
[2022-02-09] MEDS ORDERED: ACETAMINOPHEN TAB 325 MG TAB PO STA (19:57)
--- NOTE | 2022-02-09 19:58 | ED ---
General Adult HPI - General Chief complaint: Fall Stated complaint: fall Time Seen by Provider: 02/09/22 19:01 Source: patient Mode of arrival: ambulatory Limitations: no limitations - History of Present Illness Initial comments: This is a 61-year-old male with a past medical history including previous blood clots on Xarelto, hypertension, diabetes presented to the emergency department as a level II trauma after falling onto his right shoulder from standing on a chair. The patient stated that he felt the right shoulder and did not think he hit his head but did hit his right shoulder. The patient denied losing consciousness. The patient stated that the chair was approximately 3 feet off the ground and the leg gave out causing him to fall. The patient remember the entirety of the events and stated that he only had pain in the right shoulder. The patient denied any other acute pain or complaints at this time including any lightheadedness or dizziness. The patient was resting but completely. - Related Data Home Medications Medication Instructions Recorded Confirmed Atorvastatin Calcium [Lipitor] 20 mg PO HS 05/18/18 05/20/20 Escitalopram [Lexapro] 30 mg PO DAILY 05/18/18 05/20/20 Losartan Potassium 100 mg PO DAILY 05/18/18 05/20/20 buPROPion XL [Wellbutrin XL] 300 mg PO HS 05/18/18 05/20/20 Oxybutynin Chloride [Ditropan XL] 10 mg PO DAILY 01/03/20 05/20/20 buPROPion XL [Wellbutrin XL] 150 mg PO HS 01/03/20 05/20/20 Budesonide/Formoterol Fumarate 2 puff INHALATION RT-BID 03/04/20 05/20/20 [Symbicort 160-4.5 Mcg Inhaler] Esomeprazole Magnesium 40 mg PO BID 05/20/20 05/20/20 Primidone [Mysoline] 50 mg PO HS 05/20/20 05/20/20 SUMAtriptan succinate [Imitrex] 25 mg PO DAILY PRN 05/20/20 05/20/20 hydroCHLOROthiazide [Hydrodiuril] 25 mg PO DAILY 05/20/20 05/20/20 Previous Rx's Medication Instructions Recorded Ascorbic Acid [Vitamin C] 500 mg PO DAILY #21 tab 01/10/20 Cholecalciferol [Vitamin D3 (25 1,000 unit PO DAILY #30 tab 01/10/20 Mcg = 1000 Iu)] Famotidine [Pepcid] 20 mg PO DAILY #30 tab 01/10/20 Clopidogrel [Plavix] 75 mg PO DAILY 30 Days #30 tab 01/20/20 Metoclopramide HCl [Reglan] 10 mg PO Q6HR PRN #15 tablet 05/20/20 Acyclovir [Zovirax] 400 mg PO TID #21 tablet 12/11/20 Lidocaine 4% Cream [Lmx 4] 1 applic TOPICAL BID #30 gm 12/15/20 predniSONE [Deltasone] 60 mg PO DAILY #7 tab 12/15/20 valACYclovir HCL [Valacyclovir] 1,000 mg PO TID #21 tab 12/15/20 Azithromycin [Zithromax Z-pack (6 0 mg PO DIRECTED #1 packet 03/24/21 tabs)] predniSONE 50 mg PO DAILY #5 tab 03/24/21 Allergies Allergy/AdvReac Type Severity Reaction Status Date / Time aspirin Allergy Anaphylaxis Verified 03/24/21 14:28 ibuprofen [From Motrin] Allergy Anaphylaxis Verified 03/24/21 14:28 codeine AdvReac "dries Verified 03/24/21 14:28 system out" Review of Systems ROS Statement: Those systems with pertinent positive or pertinent negative responses have been documented in the HPI. ROS Other: All systems not noted in ROS Statement are negative. Past Medical History Past Medical History: Asthma, CVA/TIA, Hyperlipidemia, Hypertension, Pneumonia Additional Past Medical History / Comment(s): Covid + 01/05 History of Any Multi-Drug Resistant Organisms: MRSA Date of last positivie culture/infection: 11/12/15 MDRO Source:: stomach Past Surgical History: Joint Replacement, Orthopedic Surgery Additional Past Surgical History / Comment(s): left hip replacement Past Anesthesia/Blood Transfusion Reactions: No Reported Reaction Past Psychological History: Anxiety, Depression Smoking Status: Never smoker Past Alcohol Use History: None Reported Past Drug Use History: None Reported - Past Family History Mother History Unknown: Yes Father History Unknown: Yes General Exam Limitations: no limitations General appearance: alert, in no apparent distress, obese Head exam: Present: atraumatic, normocephalic Eye exam: Present: normal appearance, PERRL ENT exam: Present: normal exam, normal oropharynx, mucous membranes moist Neck exam: Present: normal inspection, full ROM Respiratory exam: Present: normal lung sounds bilaterally Cardiovascular Exam: Present: regular rate, normal rhythm, normal heart sounds GI/Abdominal exam: Present: soft, distended, normal bowel sounds Extremities exam: Present: normal inspection, full ROM Back exam: Present: normal inspection, full ROM Neurological exam: Present: alert, oriented X3, CN II-XII intact Psychiatric exam: Present: normal affect, normal mood Skin exam: Present: warm, dry Course Vital Signs 02/09/22 02/09/22 02/09/22 18:53 19:05 19:30 Temperature 97.3 F L Pulse Rate 57 L 58 L 61 Respiratory 18 15 15 Rate Blood Pressure 179/81 110/82 113/68 O2 Sat by Pulse 96 97 98 Oximetry EKG Findings - EKG Comments: EKG Findings:: An EKG was obtained and was read by myself. EKG showed a rate of 54, MO interval of 164, QRS duration 97 and QTC of 43. This EKG showed a sinus bradycardia without any ST segment elevations or depressions noted. Medical Decision Making - Medical Decision Making The patient was seen and evaluated in the emergency department. Physical exam, the patient was resting in bed without any acute distress. Vital signs admission were stable. As the patient did arrive, he was leveled as a level II trauma on arrival. Trauma protocol was started and the patient did have a CT head and CT C-spine were ordered. A chest x-ray and right shoulder x-ray was also obtained at this time. The trauma surgeon was contacted per protocol and Dr. Hayden was contacted at [phone] and did not recommend any further recommendations at this time. All imaging was negative. Reevaluation, the patient was resting in bed comfortably without any acute distress or pain. The trauma was canceled at 1999. The patient was deemed stable for discharge and was told to follow-up with his primary care physician if he had continued right shoulder pain as well as coming back to the emergency department if any worsening acute pain or distress including any lightheadedness or dizziness or headache. The patient and his are agreeable to this and des portions were answered. The patient was discharged home in stable condition. Critical Care Time Critical Care Time: Yes Total Critical Care Time: 32 Disposition Clinical Impression: Fall, Hx of alf use of blood thinners, Right shoulder injury, Contusion of soft tissue Disposition: HOME SELF-CARE Condition: Stable Instructions (If sedation given, give patient instructions): Shoulder Pain (ED), Fall Prevention (ED) Is patient prescribed a controlled substance at d/c from ED?: No Referrals: Keyana Bishop DO [Primary Care Provider] - 1-2 days Time of Disposition: 20:05
--- NOTE | 2022-02-09 19:58 | XR ---
EXAMINATION TYPE: XR shoulder complete RT, XR chest 2V DATE OF EXAM: 02/09/2022 7:40 PM INDICATION: Patient age:Male; 61 years old; Reason for study: Shoulder pain; COMPARISON: None TECHNIQUE: The right shoulder was examined in AP, internally rotated and scapular Y projections. . Frontal and lateral view of the chest FINDINGS: Mild degeneration changes of the right shoulder including osteophyte of the acromioclavicul ar joint. Glenohumeral joint is grossly intact. No evidence of acute osseous pathology, joint dislocation, or soft tissue swelling. The remaining por tions of the visualized chest are unremarkable. Visualized portions of the chest are grossly unremarkable. There is underpenetration. The cardiac nury houette is enlarged. IMPRESSION: 1. No acute osseous pathology. 2. Mild right shoulder osteoarthrosis. 3. Underpenetrated chest radiograph without acute cardiopulmonary disease process.
[2022-02-09 20:27] VITALS: BP 118/50; PULSE 57
== END 2022-02-09 20:37 | disposition home or self-care (01) ==
LOC: EC 18:49
DX: S40.011A Contusion of right shoulder, initial encounter (principal); J45.909 Unspecified asthma, uncomplicated; E78.5 Hyperlipidemia, unspecified; I10 Essential (primary) hypertension; Z86.16 Personal history of COVID-19; Z86.73 Personal history of transient ischemic attack (TIA), and cerebral infarction without residual deficits; Z96.642 Presence of left artificial hip joint; Z88.6 Allergy status to analgesic agent; Z88.8 Allergy status to other drugs, medicaments and biological substances; Z88.5 Allergy status to narcotic agent; Z79.02 Long term (current) use of antithrombotics/antiplatelets; W07.XXXA Fall from chair, initial encounter; Y92.89 Other specified places as the place of occurrence of the external cause; Y99.8 Other external cause status
CPT/HCPCS: 70450; 71046; 72125; 93005; 99284

== ENCOUNTER 2024-05-30 10:15 | Emergency (ER) | payer BC, MEDICARE ==
[2024-05-30 10:31] VITALS: RESP 18
--- NOTE | 2024-05-30 10:50 | ED ---
General Adult HPI - General Chief complaint: Shortness of Breath Stated complaint: SOB Time Seen by Provider: 05/30/24 10:28 Source: patient, RN notes reviewed Mode of arrival: ambulatory Limitations: no limitations - History of Present Illness Initial comments: 64-year-old male with history of COPD, hypertension, hyperlipidemia and DVT on Xarelto presenting to the emergency department with shortness of breath over the past 4 weeks. Patient states that he feels like his asthma/COPD has been flared over the past few weeks described as a tightness in his chest while taking a deep breath. He endorses difficulty in breathing with activity with heart palpitations that last for a few seconds. Patient denies difficulty in breathing at rest, chest pain, heart palpitations at rest. States he has been having a dry nonproductive cough over the past few weeks. Denies fevers, chills, congestion, rhinorrhea, body aches. Denies pain in bilateral calves or swelling, recent prolonged travel, recent surgeries, hemoptysis. Attempted to make an appointment with his site identification specialist yesterday and today but was unable to get through. - Related Data Home Medications Medication Instructions Recorded Confirmed Atorvastatin Calcium [Lipitor] 20 mg PO HS 05/18/18 05/20/20 Escitalopram [Lexapro] 30 mg PO DAILY 05/18/18 05/20/20 Losartan Potassium 100 mg PO DAILY 05/18/18 05/20/20 buPROPion XL [Wellbutrin XL] 300 mg PO HS 05/18/18 05/20/20 buPROPion XL [Wellbutrin XL] 150 mg PO HS 01/03/20 05/20/20 oxyBUTYnin chloride [Ditropan XL] 10 mg PO DAILY 01/03/20 05/20/20 Budesonide/Formoterol Fumarate 2 puff INHALATION RT-BID 03/04/20 05/20/20 [Symbicort 160-4.5 Mcg Inhaler] Esomeprazole Magnesium 40 mg PO BID 05/20/20 05/20/20 Primidone [Mysoline] 50 mg PO HS 05/20/20 05/20/20 SUMAtriptan succinate [Imitrex] 25 mg PO DAILY PRN 05/20/20 05/20/20 hydroCHLOROthiazide [Hydrodiuril] 25 mg PO DAILY 03/10/21 03/10/21 Previous Rx's Medication Instructions Recorded Ascorbic Acid [Vitamin C] 500 mg PO DAILY #21 tab 01/10/20 Cholecalciferol [Vitamin D3 (25 1,000 unit PO DAILY #30 tab 01/10/20 Mcg = 1000 Iu)] Famotidine [Pepcid] 20 mg PO DAILY #30 tab 01/10/20 Clopidogrel [Plavix] 75 mg PO DAILY 30 Days #30 tab 01/20/20 Metoclopramide HCl [Reglan] 10 mg PO Q6HR PRN #15 tablet 05/20/20 Acyclovir [Zovirax] 400 mg PO TID #21 tablet 12/11/20 Lidocaine 4% Cream [Lmx 4] 1 applic TOPICAL BID #30 gm 12/15/20 predniSONE [Deltasone] 60 mg PO DAILY #7 tab 12/15/20 valACYclovir HCL [Valacyclovir] 1,000 mg PO TID #21 tab 12/15/20 Azithromycin [Zithromax Z-pack (6 0 mg PO DIRECTED #1 packet 03/24/21 tabs)] predniSONE 50 mg PO DAILY #5 tab 03/24/21 predniSONE 50 mg PO DAILY #5 tab 05/30/24 Allergies Allergy/AdvReac Type Severity Reaction Status Date / Time aspirin Allergy Anaphylaxis Verified 05/30/24 10:31 ibuprofen [From Motrin] Allergy Anaphylaxis Verified 05/30/24 10:31 codeine AdvReac "dries Verified 05/30/24 10:31 system out" Review of Systems ROS Statement: Those systems with pertinent positive or pertinent negative responses have been documented in the HPI. ROS Other: All systems not noted in ROS Statement are negative. Past Medical History Past Medical History: Asthma, CVA/TIA, Hyperlipidemia, Hypertension, Pneumonia Additional Past Medical History / Comment(s): Covid + 01/05 History of Any Multi-Drug Resistant Organisms: MRSA Date of last positivie culture/infection: 11/12/15 MDRO Source:: stomach Past Surgical History: Joint Replacement, Orthopedic Surgery Additional Past Surgical History / Comment(s): left hip replacement Past Anesthesia/Blood Transfusion Reactions: No Reported Reaction Past Psychological History: Anxiety, Depression Smoking Status: Never smoker Past Alcohol Use History: Occasional Past Drug Use History: None Reported - Past Family History Mother History Unknown: Yes Father History Unknown: Yes General Exam Limitations: no limitations General appearance: alert, in no apparent distress Neck exam: Present: normal inspection. Absent: tenderness, meningismus, lymphadenopathy Respiratory exam: Present: decreased breath sounds. Absent: normal lung sounds bilaterally, respiratory distress, wheezes, rales, rhonchi, stridor Cardiovascular Exam: Present: regular rate, normal rhythm, normal heart sounds. Absent: systolic murmur, diastolic murmur, rubs, gallop, clicks GI/Abdominal exam: Present: soft, normal bowel sounds. Absent: distended, tenderness, guarding, rebound, rigid Extremities exam: Present: normal inspection, full ROM, normal capillary refill. Absent: tenderness, pedal edema, joint swelling, calf tenderness Back exam: Present: normal inspection Course Vital Signs 05/30/24 05/30/24 05/30/24 10:27 11:17 11:24 Temperature 98.1 F Pulse Rate 62 78 76 Respiratory 18 Rate Blood Pressure 132/80 Medical Decision Making - Medical Decision Making Was pt. sent in by a medical professional or institution (, PA, INFUSION RN, urgent care, hospital, or skilled nursing...) When possible be specific @ -No Did you speak to anyone other than the patient for history (EMS, parent, family, police, friend...)? What history was obtained from this source @ -No Did you review nursing and triage notes (agree or disagree)? Why? @ -I reviewed and agree with nursing and triage notes Were old charts reviewed (outside hosp., previous admission, EMS record, old EKG, old radiological studies, urgent care reports/EKG's, skilled nursing records)? Report findings @ -No old charts were reviewed Differential Diagnosis (chest pain, altered mental status, abdominal pain women, abdominal pain men, vaginal bleeding, weakness, fever, dyspnea, syncope, headache, dizziness, GI bleed, back pain, seizure, CVA, palpatations, mental health, musculoskeletal)? @ -Differential Dyspnea: Coronary syndrome, arrhythmia, tamponade, asthma, COPD, pulmonary embolism, pneumonia, pneumothorax, pulmonary effusion, anaphylaxis, diabetic ketoacidosis, flailed chest, pulmonary contusion, diaphragmatic rupture, anemia, neuromuscular, this is not meant to be an all-inclusive list. EKG interpreted by me (3pts min.). @ -Completed at 1041 sinus rhythm with a ventricular rate of 60, SD interval 172, QRS 108, QTc 402. X-rays interpreted by me (1pt min.). @ -Chest x-ray completed no evidence for acute process, hyperinflation compatible with COPD. CT interpreted by me (1pt min.). @ -None done U/S interpreted by me (1pt. min.). @ -None done What testing was considered but not performed or refused? (CT, X-rays, U/S, labs)? Why? @ -None What meds were considered but not given or refused? Why? @ -None Did you discuss the management of the patient with other professionals (professionals i.e. , PA, INFUSION RN, lab, RT, psych nurse, school social worker, bender helper, teacher, aboriginal liaison officer, case maker)? Give summary @ -No Was smoking cessation discussed for >3mins.? @ -No Was critical care preformed (if so, how long)? @ -No Were there social determinants of health that impacted care today? How? (Homelessness, low income, unemployed, alcoholism, drug addiction, transportation, low edu. Level, literacy, decrease access to med. care, fci, rehab)? @ -No Was there de-escalation of care discussed even if they declined (Discuss DNR or withdrawal of care, Hospice)? DNR status @ -No What co-morbidities impacted this encounter? (DM, HTN, Smoking, COPD, CAD, Cancer, CVA, ARF, Chemo, Hep., AIDS, mental health diagnosis, sleep apnea, morbi d obesity)? @ -None Was patient admitted / discharged? Hospital course, mention meds given and route , prescriptions, significant lab abnormalities, going to OR and other pertinent info. @ -Discharge. 64-year-old male presenting with difficulty breathing. Overall patient is well-appearing in no signs of respiratory distress. Vitals are stable on arrival with an oxygen saturation 96 on room air, nontachycardic and afebrile. There are decreased breath sounds bilaterally on examination patient provided with dose of Solu-Medrol and DuoNeb breathing treatment. Patient's CMP remarkable for elevated creatinine 1.94 BUN of 25 mildly increased from baseline. Troponin, BNP within normal. CBC unremarkable. On reevaluation after medication ministration patient is that he is feeling markedly better. Again, repeat of vitals within normal. Recommend that patient follow-up with primary care provider within the next few days for reevaluation of elevated serum creatinine and decreased GFR in addition to difficulty breathing with asthma exacerbation. Provided with outpatient prescription for 5 days of prednisone and return parameters have been discussed. Case discussed with Dr. Raymon palomino Undiagnosed new problem with uncertain prognosis? @ -No Drug Therapy requiring intensive monitoring for toxicity (Heparin, Nitro, Insulin, Cardizem)? @ -No Were any procedures done? @ -No Diagnosis/symptom? @ -Asthma exacerbation Acute, or Chronic, or Acute on Chronic? @ -Acute on chronic Uncomplicated (without systemic symptoms) or Complicated (systemic symptoms)? @ -uncomplicated Side effects of treatment? @ -No Exacerbation, Progression, or Severe Exacerbation? @ -No Poses a threat to life or bodily function? How? (Chest pain, USA, [place], pneumonia, PE, COPD, DKA, ARF, appy, cholecystitis, CVA, Diverticulitis, Homicidal, Suicidal, threat to staff... and all critical care pts) @ -No - Lab Data Result diagrams: 05/30/24 11:03 05/30/24 11:03 Lab Results 05/30/24 05/30/24 05/30/24 Range/Units 11:03 11:03 11:03 WBC 7.2 (3.8-10.6) k/uL RBC 5.38 (4.30-5.90) m/uL Hgb 16.4 (13.0-17.5) gm/dL Hct 48.3 (39.0-53.0) % MCV 89.7 (80.0-100.0) fL MCH 30.4 (25.0-35.0) pg MCHC 33.9 (31.0-37.0) g/dL RDW 13.2 (11.5-15.5) % Plt Count 184 (150-450) k/uL MPV 7.3 Neutrophils % 70 % Lymphocytes % 18 % Monocytes % 8 % Eosinophils % 1 % Basophils % 0 % Neutrophils # 5.1 (1.3-7.7) k/uL Lymphocytes # 1.3 (1.0-4.8) k/uL Monocytes # 0.6 (0-1.0) k/uL Eosinophils # 0.1 (0-0.7) k/uL Basophils # 0.0 (0-0.2) k/uL PT 12.7 H (10.0-12.5) sec INR 1.2 H (<1.2) APTT 30.4 H (22.0-30.0) sec Sodium 138 (137-145) mmol/L Potassium 4.0 (3.5-5.1) mmol/L Chloride 110 H (98-107) mmol/L Carbon Dioxide 18 L (22-30) mmol/L Anion Gap 10 mmol/L BUN 25 H (9-20) mg/dL Creatinine 1.94 H (0.66-1.25) mg/dL Est GFR (CKD-EPI)AfAm 41 (>60 ml/min/1.73 sqM) Est GFR (CKD-EPI)NonAf 35 (>60 ml/min/1.73 sqM) Glucose 103 H (74-99) mg/dL Calcium 9.4 (8.4-10.2) mg/dL Magnesium 2.0 (1.6-2.3) mg/dL Total Bilirubin 0.8 (0.2-1.3) mg/dL AST 22 (17-59) U/L ALT 27 (4-49) U/L Alkaline Phosphatase 79 (38-126) U/L Troponin I (0.000-0.034) ng/mL NT-Pro-B Natriuret Pep <20 pg/mL Total Protein 7.0 (6.3-8.2) g/dL Albumin 4.4 (3.5-5.0) g/dL 03/20/25 Range/Units 11:03 WBC (3.8-10.6) k/uL RBC (4.30-5.90) m/uL Hgb (13.0-17.5) gm/dL Hct (39.0-53.0) % MCV (80.0-100.0) fL MCH (25.0-35.0) pg MCHC (31.0-37.0) g/dL RDW (11.5-15.5) % Plt Count (150-450) k/uL MPV Neutrophils % % Lymphocytes % % Monocytes % % Eosinophils % % Basophils % % Neutrophils # (1.3-7.7) k/uL Lymphocytes # (1.0-4.8) k/uL Monocytes # (0-1.0) k/uL Eosinophils # (0-0.7) k/uL Basophils # (0-0.2) k/uL PT (10.0-12.5) sec INR (<1.2) APTT (22.0-30.0) sec Sodium (137-145) mmol/L Potassium (3.5-5.1) mmol/L Chloride (98-107) mmol/L Carbon Dioxide (22-30) mmol/L Anion Gap mmol/L BUN (9-20) mg/dL Creatinine (0.66-1.25) mg/dL Est GFR (CKD-EPI)AfAm (>60 ml/min/1.73 sqM) Est GFR (CKD-EPI)NonAf (>60 ml/min/1.73 sqM) Glucose (74-99) mg/dL Calcium (8.4-10.2) mg/dL Magnesium (1.6-2.3) mg/dL Total Bilirubin (0.2-1.3) mg/dL AST (17-59) U/L ALT (4-49) U/L Alkaline Phosphatase (38-126) U/L Troponin I <0.012 (0.000-0.034) ng/mL NT-Pro-B Natriuret Pep pg/mL Total Protein (6.3-8.2) g/dL Albumin (3.5-5.0) g/dL Disposition Clinical Impression: Shortness of breath, Dry cough, Asthmatic bronchitis Disposition: HOME SELF-CARE Condition: Good Instructions (If sedation given, give patient instructions): Chronic Bronchitis (ED) Additional Instructions: Please return to the Emergency Department if symptoms worsen or any other concerns. Prescriptions: predniSONE 50 mg PO DAILY #5 tab Is patient prescribed a controlled substance at d/c from ED?: No Referrals: Keyana Bishop DO [Primary Care Provider] - 1-2 days Time of Disposition: 12:10
[2024-05-30] MEDS: methylPREDNISolone SOD SUCCI 125 MG/2 ML VIAL IV STA (11:01)
--- NOTE | 2024-05-30 11:15 | XR ---
EXAMINATION TYPE: XR chest 2V DATE OF EXAM: 05/30/2024 11:10 AM COMPARISON: 02/09/2022 CLINICAL INDICATION: Male, 64 years old with history of difficulty breathing: Shortness of breath TECHNIQUE: XR chest 2V views of the chest are obtained. FINDINGS: Scattered senescent parenchymal changes noted. Hyperinflation compatible with COPD. No evidence for infiltrate. No evidence for atelectasis. Heart size is stable. Mediastinal structures are stable and grossly unremarkable. No evidence for hilar prominence. Degenerative changes dorsal spine. IMPRESSION: 1. No evidence for acute pulmonary disease. [facility], , 05/30/2024 11:13 AM
[2024-05-30] MEDS: IPRATROPIUM-ALBUTEROL 3 ML NEB INHALATION STA (11:17)
[2024-05-30 11:27] LABS: ALT 27 U/L (4-49); AST 22 U/L (17-59); African American GFR (CKD) 41 (>60 ml/min/1.73 sqM); Albumin 4.4 g/dL (3.5-5.0); Alkaline Phosphatase 79 U/L (38-126); Anion Gap 10 mmol/L; Blood Urea Nitrogen 25 mg/dL (9-20); Calcium 9.4 mg/dL (8.4-10.2); Carbon Dioxide 18 mmol/L (22-30); Chloride 110 mmol/L (98-107); Glucose 103 mg/dL (74-99); Non-African American GFR(CKD) 35 (>60 ml/min/1.73 sqM); Sodium 138 mmol/L (137-145); Total Bilirubin 0.8 mg/dL (0.2-1.3)
[2024-05-30 11:29] LABS: Basophils % (A) 0 %; Eosinophils # (A) 0.1 k/uL (0-0.7); Eosinophils % (A) 1 %; HCT 48.3 % (39.0-53.0); HGB 16.4 gm/dL (13.0-17.5); Lymphocytes # (A) 1.3 k/uL (1.0-4.8); Lymphocytes % (A) 18 %; MCH 30.4 pg (25.0-35.0); MCHC 33.9 g/dL (31.0-37.0); MCV 89.7 fL (80.0-100.0); Mean Platelet Volume 7.3; Monocytes # (A) 0.6 k/uL (0-1.0); Monocytes % (A) 8 %; Neutrophils # (A) 5.1 k/uL (1.3-7.7); Neutrophils % (A) 70 %; Platelet Count 184 k/uL (150-450); RBC 5.38 m/uL (4.30-5.90); RDW 13.2 % (11.5-15.5); WBC 7.2 k/uL (3.8-10.6)
[2024-05-30 11:36] LABS: NT-Pro-B-Type Natriuretic Pept <20 pg/mL
[2024-05-30 12:02] LABS: INR 1.2 (<1.2); Partial Thromboplastin Time 30.4 sec (22.0-30.0); Prothrombin Time 12.7 sec (10.0-12.5)
[2024-05-30 12:22] VITALS: BP 114/85; PULSE 65; TEMP 98.6
== END 2024-05-30 12:25 | disposition home or self-care (01) ==
LOC: EC 10:15
DX: J44.89 Other specified chronic obstructive pulmonary disease (principal); Z88.5 Allergy status to narcotic agent; Z88.6 Allergy status to analgesic agent; Z86.73 Personal history of transient ischemic attack (TIA), and cerebral infarction without residual deficits; Z86.16 Personal history of COVID-19
CPT/HCPCS: 36415; 94640; 93005; 83880; 80053; 83735; 84484; 85025; 85610; 85730; 71046; 99285; 96374; J2919

== ENCOUNTER 2024-06-01 13:08 | Emergency (ER) | payer BC, MEDICARE ==
--- NOTE | 2024-06-01 13:19 | ED ---
Chest Pain HPI - General Source: patient, RN notes reviewed Mode of arrival: ambulatory Limitations: no limitations <Mehreen Geronimo - Last Filed: 06/01/24 13:18> - General Source: patient, RN notes reviewed, old records reviewed Mode of arrival: ambulatory Limitations: no limitations - History of Present Illness MD Complaint: chest pain (Pain earlier today resolved) -: hour(s) Pain Location: substernal Severity: mild Severity scale (1-10): 3 Quality: tightness Consistency: now resolved Improves With: nothing Worsens With: nothing Anginal Symptoms: dyspnea, sense of impending doom Other Symptoms: palpitations Treatments Prior to Arrival: none <Robb Villarreal - Last Filed: 06/01/24 18:17> - General Stated Complaint: SOB Time Seen by Provider: 06/01/24 13:18 - History of Present Illness Initial Comments: Quick note: 64-year-old male presented to the ER for evaluation of chest pain. Patient sent by PCP. He states for the past week he has been having a chest discomfort along with shortness of breath. He reports a history of DVTs and is currently anticoagulated. Reports shortness of breath is worse than normal. No fevers or chills (Mehreen Geronimo) This is a 64 male to the ER for chest pain patient sent by primary care for chest pain evaluation. Patient is complaining of chest pain and shortness of breath, patient was recently in the ER for similar symptoms with no improvement worsening chest pain today. Did go see his primary care after chest pain, was prescribed medications for bronchitis but told to come to the ER concern for DVT or heart disease. Patient has no current chest pain mild cough and shortness of breath (Robb Villarreal) - Related Data Home Medications Medication Instructions Recorded Confirmed Atorvastatin Calcium [Lipitor] 20 mg PO HS 05/18/18 05/20/20 Escitalopram [Lexapro] 30 mg PO DAILY 05/18/18 05/20/20 Losartan Potassium 100 mg PO DAILY 05/18/18 05/20/20 buPROPion XL [Wellbutrin XL] 300 mg PO HS 05/18/18 05/20/20 buPROPion XL [Wellbutrin XL] 150 mg PO HS 01/03/20 05/20/20 oxyBUTYnin chloride [Ditropan XL] 10 mg PO DAILY 01/03/20 05/20/20 Budesonide/Formoterol Fumarate 2 puff INHALATION RT-BID 03/04/20 05/20/20 [Symbicort 160-4.5 Mcg Inhaler] Esomeprazole Magnesium 40 mg PO BID 05/20/20 05/20/20 Primidone [Mysoline] 50 mg PO HS 05/20/20 05/20/20 SUMAtriptan succinate [Imitrex] 25 mg PO DAILY PRN 05/20/20 05/20/20 hydroCHLOROthiazide [Hydrodiuril] 25 mg PO DAILY 05/20/20 05/20/20 Previous Rx's Medication Instructions Recorded Ascorbic Acid [Vitamin C] 500 mg PO DAILY #21 tab 01/10/20 Cholecalciferol [Vitamin D3 (25 1,000 unit PO DAILY #30 tab 01/10/20 Mcg = 1000 Iu)] Famotidine [Pepcid] 20 mg PO DAILY #30 tab 01/10/20 Clopidogrel [Plavix] 75 mg PO DAILY 30 Days #30 tab 01/20/20 Metoclopramide HCl [Reglan] 10 mg PO Q6HR PRN #15 tablet 05/20/20 Acyclovir [Zovirax] 400 mg PO TID #21 tablet 12/11/20 Lidocaine 4% Cream [Lmx 4] 1 applic TOPICAL BID #30 gm 12/15/20 predniSONE [Deltasone] 60 mg PO DAILY #7 tab 12/15/20 valACYclovir HCL [Valacyclovir] 1,000 mg PO TID #21 tab 12/15/20 Azithromycin [Zithromax Z-pack (6 0 mg PO DIRECTED #1 packet 03/24/21 tabs)] predniSONE 50 mg PO DAILY #5 tab 03/24/21 predniSONE 50 mg PO DAILY #5 tab 05/30/24 Allergies Allergy/AdvReac Type Severity Reaction Status Date / Time aspirin Allergy Anaphylaxis Verified 06/01/24 13:31 ibuprofen [From Motrin] Allergy Anaphylaxis Verified 06/01/24 13:31 codeine AdvReac "dries Verified 06/01/24 13:31 system out" Review of Systems ROS Other: All systems not noted in ROS Statement are negative. <Mehreen Geronimo - Last Filed: 06/01/24 13:18> ROS Other: All systems not noted in ROS Statement are negative. <CherelleRobb B - Last Filed: 06/01/24 18:17> ROS Statement: Those systems with pertinent positive or pertinent negative responses have been documented in the HPI. EKG Findings - EKG Comments: EKG Findings:: EKG is sinus 69 IN 166 QRS 101 QTc 395 - EKG Results: EKG: interpreted by ERMD <CherelleRobb B - Last Filed: 06/01/24 18:17> Past Medical History Past Medical History: Asthma, CVA/TIA, Hyperlipidemia, Hypertension, Pneumonia Additional Past Medical History / Comment(s): Covid + 01/05 History of Any Multi-Drug Resistant Organisms: MRSA Date of last positivie culture/infection: 11/12/15 MDRO Source:: stomach Past Surgical History: Joint Replacement, Orthopedic Surgery Additional Past Surgical History / Comment(s): left hip replacement Past Anesthesia/Blood Transfusion Reactions: No Reported Reaction Past Psychological History: Anxiety, Depression Smoking Status: Never smoker Past Alcohol Use History: Occasional Past Drug Use History: None Reported - Past Family History Mother History Unknown: Yes Father History Unknown: Yes <Mehreen Geronimo - Last Filed: 06/01/24 13:18> General Exam <Mehreen Geronimo - Last Filed: 06/01/24 13:18> General appearance: alert, in no apparent distress Head exam: Present: atraumatic, normocephalic, normal inspection Eye exam: Present: normal appearance, PERRL, EOMI. Absent: scleral icterus, conjunctival injection, periorbital swelling ENT exam: Present: normal exam, mucous membranes moist Neck exam: Present: normal inspection. Absent: tenderness, meningismus, lymphadenopathy Respiratory exam: Present: normal lung sounds bilaterally. Absent: respiratory distress, wheezes, rales, rhonchi, stridor Cardiovascular Exam: Present: regular rate, normal rhythm, normal heart sounds. Absent: systolic murmur, diastolic murmur, rubs, gallop, clicks GI/Abdominal exam: Present: soft, normal bowel sounds. Absent: distended, tenderness, guarding, rebound, rigid Extremities exam: Present: normal inspection, full ROM, normal capillary refill. Absent: tenderness, pedal edema, joint swelling, calf tenderness Back exam: Present: normal inspection Neurological exam: Present: alert, oriented X3, CN II-XII intact Psychiatric exam: Present: normal affect, normal mood Skin exam: Present: warm, dry, intact, normal color. Absent: rash <Robb Villarreal - Last Filed: 06/01/24 18:17> - General Exam Comments Initial Comments: Visual Physical Exam Vital signs reviewed General: Well-appearing, nontoxic, no acute distress. Head: Normocephalic, atraumatic Eyes: PERRLA, EOMI ENT: Airway patent Chest: Nonlabored breathing Skin: No visual rash, normal skin tone Neuro: Alert and oriented 3 Musculoskeletal: No gross abnormalities (Mehreen Geronimo) Course <Robb Villarreal - Last Filed: 06/01/24 18:17> Vital Signs 06/01/24 06/01/24 13:28 17:19 Temperature 98.2 F 98.7 F Pulse Rate 68 65 Respiratory 18 18 Rate Blood Pressure 184/98 149/79 O2 Sat by Pulse 95 96 Oximetry - Reevaluation(s) Reevaluation #1: 06/01/24 18:16 Medical records reviewed (Robb Villarreal) Reevaluation #2: 06/01/24 18:16 Patient remains without chest pain (Robb Villarreal) Reevaluation #3: 06/01/24 18:16 Patient informed of results questions answered (Robb Villarreal) Reevaluation #4: Was pt. sent in by a medical professional or institution (, PA, AIR CONDITIONING EQUIPMENT MECHANIC, urgent care, hospital, or fci...) When possible be specific @ -no Did you speak to anyone other than the patient for history (EMS, parent, family, police, friend...)? What history was obtained from this source @ -no Did you review nursing and triage notes (agree or disagree)? Why? @ -agree Are old charts reviewed (outside hosp., previous admission, EMS record, old EKG, old radiological studies, urgent care reports/EKG's, fci records)? Report findings @ -yes Differential Diagnosis (chest pain, altered mental status, abdominal pain women, abdominal pain men, vaginal bleeding, weakness, fever, dyspnea, syncope, headache, dizziness, GI bleed, back pain, seizure, CVA, palpatations, mental health, musculoskeletal)? @ -prior EKG interpreted by me (3pts min.). @ -yes X-rays interpreted by me (1pt min.). @ -yes negative for acute disease CT interpreted by me (1pt min.). @ -no U/S interpreted by me (1pt. min.). @ -no What testing was considered but not performed or refused? (CT, X-rays, U/S, labs)? Why? @ -none What meds were considered but not given or refused? Why? @ -none Did you discuss the management of the patient with other professionals (professionals i.e. Dr., PA, AIR CONDITIONING EQUIPMENT MECHANIC, lab, RT, psych nurse, social studies department chair, instrument repairer steam plant, teacher, chief innovation officer, porter sample case)? Give summary @ -no Was smoking cessation discussed for >3mins.? @ -no Was critical care preformed (if so, how long)? @ -no Were there social determinants of health that impacted care today? How? (Homelessness, low income, unemployed, alcoholism, drug addiction, transportation, low edu. Level, literacy, decrease access to med. care, fci, rehab)? @ -none Was there de-escalation of care discussed even if they declined (Discuss DNR or withdrawal of care, Hospice)? DNR status @ -no What co-morbidities impacted this encounter? (DM, HTN, Smoking, COPD, CAD, Cancer, CVA, ARF, Chemo, Hep., AIDS, mental health diagnosis, sleep apnea, morbid obesity)? @ -none Was patient admitted / discharged? Hospital course, mention meds given and route, prescriptions, significant lab abnormalities, going to OR and other pertinent info. @ - Undiagnosed new problem with uncertain prognosis? @ -no Drug Therapy requiring intensive monitoring for toxicity (Heparin, Nitro, Insulin, Cardizem)? @ -no Were any procedures done? @ -no Diagnosis/symptom? @ - Acute, or Chronic, or Acute on Chronic? @ -Acute Uncomplicated (without systemic symptoms) or Complicated (systemic symptoms)? @ -Complicated Side effects of treatment? @ -no Exacerbation, Progression, or Severe Exacerbation? @ -exacerbation Poses a threat to life or bodily function? How? (Chest pain, USA, PA, pneumonia, PE, COPD, DKA, ARF, appy, cholecystitis, CVA, Diverticulitis, Homicidal, Suicidal, threat to staff... and all critical care pts) @ -yes (Robb Villarreal) Reevaluation #5: Differential Chest Pain: Stable Angina, Unstable Angina, STEMI, NSTEMI Aortic Dissection, Pneumothorax, Musculoskeletal, Esophageal Spasm GERD, Cholecystitis, Pancreatitis, Zoster, this is not meant to be an all-inclusive list. (Robb Villarreal) Chest Pain MDM <Mehreen Geronimo - Last Filed: 06/01/24 13:18> <Robb Villarreal - Last Filed: 06/01/24 18:17> - MDM I performed the quick note portion of this chart. Electronically signed by Mehreen Geronimo PA-C (Mehreen Geronimo) 64 male to ER for chest pain evaluation and observation. Patient has normal troponin here in the ER and D-dimer is negative chest x-ray normal, patient is being treated for outpatient bronchitis and would like to continue outpatient treatment and evaluation (Robb Villarreal) Disposition <Mehreen Geronimo - Last Filed: 06/01/24 13:18> Is patient prescribed a controlled substance at d/c from ED?: No Time of Disposition: 16:30 <Robb Villarreal - Last Filed: 06/01/24 18:17> Clinical Impression: Atypical chest pain, Chest pain Disposition: HOME SELF-CARE Condition: Good Instructions (If sedation given, give patient instructions): Chest Pain (ED) Referrals: Kade Douglas, [Primary Care Provider] - 1-2 days
[2024-06-01 13:31] VITALS: RESP 18
[2024-06-01 14:14] LABS: Basophils % (A) 0 %; Eosinophils % (A) 0 %; HCT 47.4 % (39.0-53.0); Lymphocytes # (A) 0.6 k/uL (1.0-4.8); Lymphocytes % (A) 6 %; MCH 30.4 pg (25.0-35.0); MCHC 33.7 g/dL (31.0-37.0); MCV 90.4 fL (80.0-100.0); Mean Platelet Volume 7.6; Monocytes # (A) 0.3 k/uL (0-1.0); Monocytes % (A) 3 %; Neutrophils # (A) 9.1 k/uL (1.3-7.7); Neutrophils % (A) 91 %; Platelet Count 194 k/uL (150-450); RBC 5.24 m/uL (4.30-5.90); RDW 13.4 % (11.5-15.5); WBC 10.1 k/uL (3.8-10.6)
[2024-06-01 14:24] LABS: ALT 25 U/L (4-49); AST 24 U/L (17-59); African American GFR (CKD) 40 (>60 ml/min/1.73 sqM); Albumin 4.4 g/dL (3.5-5.0); Alkaline Phosphatase 74 U/L (38-126); Anion Gap 11 mmol/L; Blood Urea Nitrogen 35 mg/dL (9-20); Calcium 9.1 mg/dL (8.4-10.2); Carbon Dioxide 20 mmol/L (22-30); Chloride 108 mmol/L (98-107); Glucose 170 mg/dL (74-99); Non-African American GFR(CKD) 35 (>60 ml/min/1.73 sqM); Potassium 4.4 mmol/L (3.5-5.1); Sodium 139 mmol/L (137-145); Total Bilirubin 0.7 mg/dL (0.2-1.3); Total Protein 6.9 g/dL (6.3-8.2)
--- NOTE | 2024-06-01 14:25 | XR ---
EXAMINATION TYPE: XR chest 2V DATE OF EXAM: 06/01/2024 2:14 PM COMPARISON: 05/30/2024 CLINICAL INDICATION: Male, 64 years old with history of Chest Pain: Shortness of breath TECHNIQUE: XR chest 2V views of the chest are obtained. FINDINGS: Scattered senescent parenchymal changes noted. Hyperinflation compatible with COPD. No evidence for infiltrate. No evidence for atelectasis. Heart size is stable. Mediastinal structures are stable and grossly unremarkable. No evidence for hilar prominence. Degenerative changes dorsal spine. IMPRESSION: 1. No evidence for acute pulmonary disease. [facility], , 06/01/2024 2:22 PM
[2024-06-01 14:28] LABS: INR 1.2 (<1.2); Partial Thromboplastin Time 27.9 sec (22.0-30.0); Prothrombin Time 12.5 sec (10.0-12.5)
[2024-06-01 18:06] VITALS: BP 149/79; PULSE 65; TEMP 98.7
== END 2024-06-01 17:19 | disposition home or self-care (01) ==
LOC: EC 13:08
DX: R07.89 Other chest pain (principal); Z86.718 Personal history of other venous thrombosis and embolism; Z88.5 Allergy status to narcotic agent; Z88.6 Allergy status to analgesic agent
CPT/HCPCS: 36415; 71046; 80053; 83735; 84484; 85025; 85379; 85610; 85730; 93005; 99285